=== PATIENT | female | born 1975 | race Caucasian/White ===

== ENCOUNTER 2022-05-27 20:03 | Emergency (ER) | payer BC, SELFPAY ==
[2022-05-27] VITALS (17 sets, daily range): BP systolic 86–114; BP diastolic 51–75; PULSE 55–85; RESP 12–20; TEMP 36.3; O2SAT 97–100
--- NOTE | 2022-05-27 20:38 | ED.GENADUL_ITS ---
Discharge Plan Disposition Patient Disposition: Home Discharge Details Clinical Impression: Headache [facility]: Maria Del Carmen Palacio Home Meds and New Rx's Prescriptions: New prochlorperazine maleate [Compazine] 10 mg tablet 10 mg PO Q6H PRNQty: 10 0RF Discharge Instructions Instructions: General Headache (ED) Additional Instructions: Take Compazine as needed for headache Take ibuprofen and Tylenol as needed for discomfort Please follow-up to establish primary care, placed on a referral list Return earlier should you have new or worsening complaints Discharge Data Discharge Date/Time-TO BE ENTERED AT DEPARTURE: 05/27/22 22:44 Medical Decision Making Patient presents with headache consistent with patient's prior migraine headaches I will defer on imaging and labs secondary to recurrent presentation Afebrile and nontoxic Nonfocal neurological exam Migraine cocktail consisting of Benadryl, Compazine, oxygen, and fluids with Tylenol ordered with good effect patient Patient reporting marked improvement in symptoms Afebrile and nontoxic on reassessment, request discharge home, headache has completely resolved Medical Records Medical records reviewed: Yes I reviewed the patient's medical records. Lab Data Lab results reviewed: Yes I reviewed the patient's lab results. HPI General Date/Time Provider Initiated Documentation: 05/27/22 20:18 . HPI Narrative: This 46-year-old female presents with report of headache which she describes as a migraine which started approximately 4 hours prior to arrival. She typically takes Nurtec, however this was not effective for this episode. She states that this is not an atypical migraine for her. She denies any fever or chills, neck pain, change in presentation. She denies any head trauma or chance of . She denies any risk of carbon monoxide exposure. She reports photophobia and phonophobia. Related Data Home Medications Medication Instructions Recorded Confirmed prochlorperazine maleate 10 mg 10 mg PO Q6H PRN #10 tabs 05/27/22 tablet (Compazine) Previous Rx's Medication Instructions Recorded prochlorperazine maleate 10 mg 10 mg PO Q6H PRN #10 tabs 05/27/22 tablet (Compazine) General Stated Complaint: Headache DANIEL: 4 PFSH All Active Problems (Updated 05/27/22 @ 21:34 by MENG Andrade) Headache (Acute) Social History Smoking/Tobacco Use Status: Never Smoking risk assessment performed?: Yes Substance use type: does not use Do you feel safe at home: Yes Exam Const General: cooperative and comfortable Orientation: alert and oriented x3 HENMT Head: normal to inspection Mouth: oral mucosae normal Eyes General: appearance normal, both eyes and all related structures Neck Other: no midline tenderness Resp Effort & Inspection: normal respiratory effort Auscultation: clear to auscultation bilaterally Cardio Rate: regular rate Rhythm: regular rhythm GI Inspection: normal to inspection Skin General skin exam: no rashes or lesions noted Neuro General: patient alert and patient oriented x3 Cognition: normal cognition Speech: speech normal Sensory Exam: no sensory deficits noted Course Vital Signs Vital signs: Vital Signs Temperature 36.3 C L 05/27/22 20:11 Pulse 73 05/27/22 20:11 Respiratory Rate 14 05/27/22 20:11 Blood Pressure 114/75 05/27/22 20:11 Pulse Oximetry 97 05/27/22 20:11 Temperature 36.3 C L 05/27/22 20:11 Temperature Source Temporal Artery Scan 05/27/22 20:11 Pulse 73 05/27/22 20:11 Respiratory Rate 14 05/27/22 20:11 Respiratory Effort Normal 05/27/22 20:17 Blood Pressure 114/75 05/27/22 20:11 Pulse Oximetry 97 05/27/22 20:11 Oxygen Delivery Method Room Air 05/27/22 20:11 Oxygen Flow Rate 0 05/27/22 20:11
[2022-05-27] MEDS: ACETAMINOPHEN 1,000 MG/100 ML BTL 400 MG IVPB (20:40)
[2022-05-27] MEDS: Dexamethasone 10 MG/ML VIAL IVP (20:48)
[2022-05-27] MEDS: Prochlorperazine 10 MG/2 ML VIAL IVP (20:49)
[2022-05-27] MEDS: diphenhydrAMINE 50 MG/ML VIAL IVP (20:49)
[2022-05-27] MEDS: Lactated Ringers 1,000 ML 1000 ML IV (21:00)
[2022-05-27] MEDS: Prochlorperazine 10 MG TAB PO (21:55)
--- NOTE | 2022-05-28 13:53 | PDOC.ERCMACT ---
- If Service Date Differs Date of service: 05/28/22 Time of Service: 13:53 Care Management Activity Note Pradeep is seen in the ED for a migraine. At the request of ED provider, JEROME coordinates a referral to Radha Fernandez MD, of [facility], t-doc, to assist Pradeep in obtaining a follow up appointment and in establishing care with a PCP. She has [facility] [place] for insurance.
== END 2022-05-27 22:44 | disposition home or self-care (01) ==
PROVIDERS: Emergency Provider Physician Assistant
DX: G43.909 Migraine, unspecified, not intractable, without status migrainosus (principal)
CPT/HCPCS: 36415; 96361; 96374; 96375; 99284; J0131; J0780; J1100; J1200

== ENCOUNTER 2022-12-03 10:26 | Outpatient (CLI) | payer BC, SELFPAY ==
[2022-12-03 09:54] LABS: Abs Immature Grans 0.01 10^3/uL (0.0-0.06); Absolute Basophil Count 0.05 10^3/uL (0.0-0.2); Absolute Eosinophil Count 0.18 10^3/uL (0.0-0.7); Absolute Monocyte Count 0.46 10^3/uL (0.1-0.8); Absolute Neutrophil Count 4.93 10^3/uL (1.2-6.7); Basophils % 0.7; Eosinophils % 2.5; HCT 42.4 % (36.0-46.0); HGB 14.7 g/dL (11.2-15.7); Immature Grans % 0.1; Lymphocytes % 22.1; MCH 29.9 pg (27.0-33.0); MCHC 34.7 % (32.0-36.0); MCV 86 fL (80-95); MPV 10.2 fL (8.0-11.0); Monocytes % 6.4; Neutrophils % 68.2; Platelet Count 257 10^3/uL (130-400); RBC 4.91 10^6/uL (3.93-5.22); RDW 12.8 % (11.7-14.6); RDW-SD 40.1 fL; WBC 7.23 10^3/uL (4.4-10.8)
[2022-12-03 10:31] LABS: ALT 39 U/L (14-59); AST 23 U/L (15-37); Albumin 4.2 g/dL (3.4-5.0); Alkaline Phosphatase 78 U/L (46-116); Anion Gap 10.4 mmol/L (3-11); BUN 12 mg/dL (7-18); Bilirubin, Direct 0.2 mg/dL (0.0-0.2); Bilirubin, Total 0.8 mg/dL (0.2-1.0); CO2 23.6 mmol/L (21.0-32.0); CREATININE 0.5 mg/dL (0.55-1.02); Calcium 9.4 mg/dL (8.5-10.1); Chloride 103 mmol/L (98-107); Glucose 104 mg/dL (74-106); Potassium 3.8 mmol/L (3.5-5.1); Sodium 137 mmol/L (136-145); TSH (W/Ref FT4) 1.06 uIU/mL (0.36-3.74); Total Protein 7.8 g/dL (6.4-8.2)
[2022-12-03 10:55] LABS: Vitamin D 25 Total 26.4 ng/mL (30-100)
[2022-12-03 11:08] LABS: Vitamin B12 684 pg/mL (193-986)
== END 2022-12-03 10:27 | disposition home or self-care (01) ==
LOC: LBO 10:26
PROVIDERS: Visit Provider Psychiatry & Neurology Neurology
DX: E53.8 Deficiency of other specified B group vitamins (principal); Z00.00 Encounter for general adult medical examination without abnormal findings; E55.9 Vitamin D deficiency, unspecified; H46.8 Other optic neuritis; Z13.29 Encounter for screening for other suspected endocrine disorder
CPT/HCPCS: 36415; 80053; 80076; 82306; 82607; 84443; 85025

== ENCOUNTER 2023-01-02 02:02 | Outpatient (CLI) | payer BC, SELFPAY ==
[2023-01-02 15:53] LABS: Abs Immature Grans 0.02 10^3/uL (0.0-0.06); Absolute Basophil Count 0.04 10^3/uL (0.0-0.2); Absolute Eosinophil Count 0.05 10^3/uL (0.0-0.7); Absolute Lymphocyte Count 1.62 10^3/uL (1.2-3.4); Absolute Monocyte Count 0.53 10^3/uL (0.1-0.8); Absolute Neutrophil Count 4.55 10^3/uL (1.2-6.7); Basophils % 0.6; Eosinophils % 0.7; HCT 40.2 % (36.0-46.0); HGB 13.9 g/dL (11.2-15.7); Immature Grans % 0.3; Lymphocytes % 23.8; MCH 29.8 pg (27.0-33.0); MCHC 34.6 % (32.0-36.0); MCV 86 fL (80-95); MPV 10.4 fL (8.0-11.0); Monocytes % 7.8; Neutrophils % 66.8; Platelet Count 248 10^3/uL (130-400); RBC 4.66 10^6/uL (3.93-5.22); RDW-SD 40.6 fL; WBC 6.81 10^3/uL (4.4-10.8)
[2023-01-02 17:03] LABS: ALT 29 U/L (14-59); AST 16 U/L (15-37); Albumin 4.3 g/dL (3.4-5.0); Alkaline Phosphatase 57 U/L (46-116); Bilirubin, Direct 0.2 mg/dL (0.0-0.2); Bilirubin, Total 0.6 mg/dL (0.2-1.0); Total Protein 7.1 g/dL (6.4-8.2)
== END 2023-01-02 02:03 | disposition home or self-care (01) ==
PROVIDERS: Visit Provider Psychiatry & Neurology Neurology
DX: H46.8 Other optic neuritis (principal)
CPT/HCPCS: 36415; 80076; 85025

== ENCOUNTER 2023-02-17 01:17 | Outpatient (CLI) | payer BC, SELFPAY ==
[2023-02-17 14:04] LABS: Abs Immature Grans 0.03 10^3/uL (0.0-0.06); Absolute Basophil Count 0.04 10^3/uL (0.0-0.2); Absolute Eosinophil Count 0.03 10^3/uL (0.0-0.7); Absolute Lymphocyte Count 1.49 10^3/uL (1.2-3.4); Absolute Monocyte Count 0.42 10^3/uL (0.1-0.8); Absolute Neutrophil Count 4.95 10^3/uL (1.2-6.7); Basophils % 0.6; Eosinophils % 0.4; HCT 41.3 % (36.0-46.0); HGB 14.1 g/dL (11.2-15.7); Immature Grans % 0.4; Lymphocytes % 21.4; MCH 29.3 pg (27.0-33.0); MCHC 34.1 % (32.0-36.0); MCV 86 fL (80-95); MPV 9.9 fL (8.0-11.0); Neutrophils % 71.2; Platelet Count 233 10^3/uL (130-400); RBC 4.81 10^6/uL (3.93-5.22); RDW 12.5 % (11.7-14.6); RDW-SD 38.9 fL; WBC 6.96 10^3/uL (4.4-10.8)
[2023-02-17 14:37] LABS: ALT 34 U/L (14-59); AST 23 U/L (15-37); Albumin 4.5 g/dL (3.4-5.0); Alkaline Phosphatase 61 U/L (46-116); Bilirubin, Direct 0.2 mg/dL (0.0-0.2); Bilirubin, Total 0.8 mg/dL (0.2-1.0); Total Protein 7.3 g/dL (6.4-8.2)
== END 2023-02-17 01:18 | disposition home or self-care (01) ==
LOC: LBO 01:17
PROVIDERS: Visit Provider Psychiatry & Neurology Neurology
DX: H46.8 Other optic neuritis (principal)
CPT/HCPCS: 80076; 85025

== ENCOUNTER 2023-03-20 03:11 | Outpatient (CLI) | payer BC, SELFPAY ==
[2023-03-20 08:08] LABS: Abs Immature Grans 0.01 10^3/uL (0.0-0.06); Absolute Basophil Count 0.03 10^3/uL (0.0-0.2); Absolute Eosinophil Count 0.06 10^3/uL (0.0-0.7); Absolute Lymphocyte Count 0.92 10^3/uL (1.2-3.4); Absolute Monocyte Count 0.34 10^3/uL (0.1-0.8); Absolute Neutrophil Count 2.44 10^3/uL (1.2-6.7); Basophils % 0.8; Eosinophils % 1.6; HCT 41.3 % (36.0-46.0); HGB 13.5 g/dL (11.2-15.7); Immature Grans % 0.3; Lymphocytes % 24.2; MCH 29.2 pg (27.0-33.0); MCHC 32.7 % (32.0-36.0); MCV 89 fL (80-95); MPV 9.5 fL (8.0-11.0); Monocytes % 8.9; Neutrophils % 64.2; Platelet Count 198 10^3/uL (130-400); RBC 4.63 10^6/uL (3.93-5.22); RDW 13.3 % (11.7-14.6); RDW-SD 43.7 fL
[2023-03-20 08:39] LABS: ALT 37 U/L (14-59); AST 32 U/L (15-37); Alkaline Phosphatase 58 U/L (46-116); Bilirubin, Direct 0.3 mg/dL (0.0-0.2); Bilirubin, Total 1.2 mg/dL (0.2-1.0); Total Protein 7.1 g/dL (6.4-8.2)
== END 2023-03-20 03:12 | disposition home or self-care (01) ==
PROVIDERS: Visit Provider Psychiatry & Neurology Neurology
DX: H46.8 Other optic neuritis (principal)
CPT/HCPCS: 36415; 80076; 85025

== ENCOUNTER 2023-04-20 05:14 | Outpatient (CLI) | payer BC, SELFPAY ==
[2023-04-20 16:45] LABS: Abs Immature Grans 0.02 10^3/uL (0.0-0.06); Absolute Basophil Count 0.04 10^3/uL (0.0-0.2); Absolute Eosinophil Count 0.01 10^3/uL (0.0-0.7); Absolute Lymphocyte Count 1.07 10^3/uL (1.2-3.4); Absolute Monocyte Count 0.61 10^3/uL (0.1-0.8); Absolute Neutrophil Count 5.83 10^3/uL (1.2-6.7); Basophils % 0.5; Eosinophils % 0.1; HGB 14.3 g/dL (11.2-15.7); Immature Grans % 0.3; Lymphocytes % 14.1; MCH 29.9 pg (27.0-33.0); MCV 88 fL (80-95); MPV 9.9 fL (8.0-11.0); Platelet Count 272 10^3/uL (130-400); RBC 4.79 10^6/uL (3.93-5.22); RDW 13.2 % (11.7-14.6); RDW-SD 42.5 fL; WBC 7.58 10^3/uL (4.4-10.8)
[2023-04-20 17:50] LABS: ALT 32 U/L (14-59); AST 25 U/L (15-37); Albumin 4.7 g/dL (3.4-5.0); Alkaline Phosphatase 56 U/L (46-116); Bilirubin, Direct 0.3 mg/dL (0.0-0.2); Bilirubin, Total 1.2 mg/dL (0.2-1.0); Total Protein 7.6 g/dL (6.4-8.2)
== END 2023-04-20 05:15 | disposition home or self-care (01) ==
PROVIDERS: Visit Provider Psychiatry & Neurology Neurology
DX: H46.8 Other optic neuritis (principal)
CPT/HCPCS: 36415; 80076; 85025

== ENCOUNTER → 2023-04-21 01:22 | Outpatient (CLI) | payer BC, SELFPAY ==
--- NOTE | 2023-04-21 | DI.MAMMO_ITS ---
Exam(s) MAMMO SCREENING EXAM: MAMMO SCREENING CLINICAL HISTORY: SCREENING FOR BREAST CANCER Z12.31. TECHNIQUE: Bilateral full field digital CC and MLO mammographic images were obtained with 3D tomosyn thesis and utilizing computer aided detection (CAD). COMPARISON: Prior outside mammograms dating back to 2016 were reviewed, the most recent being 2020. FINDINGS: Fibroglandular tissue pattern is again noted be moderately dense, this somewhat decreasing the sensit ivity of the mammogram for finding hidden underlying lesions. Small benign-appearing nodular density inferomedially in the left breast is unchanged from prior mamm ograms. There are no new spiculated masses nor malignant appearing microcalcification groups. There is no significant architectural distortion nor skin thickening-retraction. IMPRESSION: Dense bilateral fibroglandular tissue. No obvious radiographic evidence of malignancy nor significan t change compared to prior outside mammograms dating back to 2015. BI-RADS Category 2 - Benign Findings Breast Density - Category C - Heterogeneously dense Breast density Category C or D implies that the patient has dense breast tissue. Dense breast tissue can make it harder to find cancer on a mammogram. Dense breast tissue is also associated with an incr eased risk of breast cancer. This information about the result of the mammogram report was provided to the patient to raise their awareness. Use this report when you speak with the patient about their risks for breast cancer, which includes their family history. At that time, you may recommend additional screening tests (Ultrasoun d or MRI) as these tests may add significant information. A negative radiographic report should not delay biopsy if a dominant or clinically suspicious mass is present. Up to ten percent of cancers are not identified on mammography. A negative report may reinforce clinical impression. Adenosis and dense breasts may obscure an underlying neoplasm. False positive reports average 6 to 10%. Patient will receive a letter notifying them of these results.
== END ==
PROVIDERS: Visit Provider Family Medicine
DX: Z12.31 Encounter for screening mammogram for malignant neoplasm of breast (principal); R92.323 Mammographic fibroglandular density, bilateral breasts
CPT/HCPCS: 77063; 77067

== ENCOUNTER 2023-05-22 02:54 | Outpatient (CLI) | payer BC, SELFPAY ==
[2023-05-22 09:17] LABS: Abs Immature Grans 0.01 10^3/uL (0.0-0.06); Absolute Basophil Count 0.03 10^3/uL (0.0-0.2); Absolute Eosinophil Count 0.05 10^3/uL (0.0-0.7); Absolute Lymphocyte Count 1.15 10^3/uL (1.2-3.4); Absolute Monocyte Count 0.42 10^3/uL (0.1-0.8); Absolute Neutrophil Count 2.88 10^3/uL (1.2-6.7); Basophils % 0.7; Eosinophils % 1.1; HCT 42.5 % (36.0-46.0); HGB 14.4 g/dL (11.2-15.7); Immature Grans % 0.2; Lymphocytes % 25.3; MCH 29.4 pg (27.0-33.0); MCHC 33.9 % (32.0-36.0); MCV 87 fL (80-95); MPV 9.6 fL (8.0-11.0); Monocytes % 9.3; Neutrophils % 63.4; Platelet Count 238 10^3/uL (130-400); RBC 4.89 10^6/uL (3.93-5.22); RDW 13.1 % (11.7-14.6); RDW-SD 41.5 fL; WBC 4.54 10^3/uL (4.4-10.8)
[2023-05-22 09:37] LABS: ALT 19 U/L (14-59); AST 23 U/L (15-37); Albumin 4.4 g/dL (3.4-5.0); Alkaline Phosphatase 51 U/L (46-116); Bilirubin, Direct 0.3 mg/dL (0.0-0.2); Bilirubin, Total 1.1 mg/dL (0.2-1.0); Total Protein 7.8 g/dL (6.4-8.2)
== END 2023-05-22 02:55 | disposition home or self-care (01) ==
PROVIDERS: Visit Provider Psychiatry & Neurology Neurology
DX: H46.8 Other optic neuritis (principal)
CPT/HCPCS: 36415; 80076; 85025

== ENCOUNTER 2023-06-22 03:14 | Outpatient (CLI) | payer BC, SELFPAY ==
[2023-06-22 16:40] LABS: Abs Immature Grans 0.01 10^3/uL (0.0-0.06); Absolute Basophil Count 0.03 10^3/uL (0.0-0.2); Absolute Eosinophil Count 0.02 10^3/uL (0.0-0.7); Absolute Monocyte Count 0.43 10^3/uL (0.1-0.8); Absolute Neutrophil Count 4.13 10^3/uL (1.2-6.7); Basophils % 0.5; Eosinophils % 0.3; HCT 40.3 % (36.0-46.0); HGB 14.1 g/dL (11.2-15.7); Immature Grans % 0.2; MCH 30.8 pg (27.0-33.0); MCV 88 fL (80-95); MPV 10.2 fL (8.0-11.0); Monocytes % 7.3; Neutrophils % 69.7; Platelet Count 240 10^3/uL (130-400); RBC 4.58 10^6/uL (3.93-5.22); RDW 13.4 % (11.7-14.6); RDW-SD 42.9 fL; WBC 5.92 10^3/uL (4.4-10.8)
[2023-06-22 17:32] LABS: ALT 19 U/L (14-59); AST 21 U/L (15-37); Albumin 4.5 g/dL (3.4-5.0); Alkaline Phosphatase 54 U/L (46-116); Bilirubin, Direct 0.2 mg/dL (0.0-0.2); Total Protein 7.7 g/dL (6.4-8.2)
== END 2023-06-22 03:15 | disposition home or self-care (01) ==
PROVIDERS: Visit Provider Psychiatry & Neurology Neurology
DX: H46.8 Other optic neuritis (principal)
CPT/HCPCS: 36415; 80076; 85025

== ENCOUNTER 2023-07-24 01:35 | Outpatient (CLI) | payer BC, SELFPAY ==
[2023-07-24 16:18] LABS: Abs Immature Grans 0.02 10^3/uL (0.0-0.06); Absolute Basophil Count 0.04 10^3/uL (0.0-0.2); Absolute Eosinophil Count 0.04 10^3/uL (0.0-0.7); Absolute Lymphocyte Count 1.29 10^3/uL (1.2-3.4); Absolute Monocyte Count 0.58 10^3/uL (0.1-0.8); Absolute Neutrophil Count 3.85 10^3/uL (1.2-6.7); Basophils % 0.7; Eosinophils % 0.7; HCT 41.1 % (36.0-46.0); HGB 13.9 g/dL (11.2-15.7); Immature Grans % 0.3; Lymphocytes % 22.2; MCH 30.7 pg (27.0-33.0); MCHC 33.8 % (32.0-36.0); MCV 91 fL (80-95); MPV 9.8 fL (8.0-11.0); Neutrophils % 66.1; Platelet Count 242 10^3/uL (130-400); RBC 4.53 10^6/uL (3.93-5.22); RDW 13.5 % (11.7-14.6); RDW-SD 45.1 fL; WBC 5.82 10^3/uL (4.4-10.8)
[2023-07-24 17:01] LABS: ALT 22 U/L (14-59); AST 18 U/L (15-37); Albumin 4.5 g/dL (3.4-5.0); Alkaline Phosphatase 57 U/L (46-116); Bilirubin, Direct 0.3 mg/dL (0.0-0.2); Bilirubin, Total 1.1 mg/dL (0.2-1.0); Total Protein 7.3 g/dL (6.4-8.2)
== END 2023-07-24 01:36 | disposition home or self-care (01) ==
PROVIDERS: Visit Provider Psychiatry & Neurology Neurology
DX: H46.8 Other optic neuritis (principal)
CPT/HCPCS: 36415; 80076; 85025

== ENCOUNTER 2023-09-22 05:19 | Outpatient (CLI) | payer BC, SELFPAY ==
[2023-09-22 16:24] LABS: Abs Immature Grans 0.02 10^3/uL (0.0-0.06); Absolute Basophil Count 0.06 10^3/uL (0.0-0.2); Absolute Eosinophil Count 0.03 10^3/uL (0.0-0.7); Absolute Lymphocyte Count 1.22 10^3/uL (1.2-3.4); Absolute Neutrophil Count 3.87 10^3/uL (1.2-6.7); Basophils % 1.1 %; Eosinophils % 0.5 %; HGB 15.1 g/dL (11.2-15.7); Immature Grans % 0.4 %; Lymphocytes % 21.8 %; MCH 31.3 pg (27.0-33.0); MCHC 35.1 % (32.0-36.0); MCV 89 fL (80-95); MPV 10.1 fL (8.0-11.0); Monocytes % 7.1 %; Neutrophils % 69.1 %; Platelet Count 278 10^3/uL (130-400); RBC 4.83 10^6/uL (3.93-5.22); RDW 13.3 % (11.7-14.6); RDW-SD 43.7 fL
[2023-09-22 17:31] LABS: ALT 24 U/L (14-59); AST 20 U/L (15-37); Albumin 4.9 g/dL (3.4-5.0); Alkaline Phosphatase 65 U/L (46-116); Bilirubin, Direct 0.2 mg/dL (0.0-0.2); Bilirubin, Total 1.1 mg/dL (0.2-1.0); Total Protein 7.6 g/dL (6.4-8.2)
== END 2023-09-22 05:20 | disposition home or self-care (01) ==
PROVIDERS: Visit Provider Psychiatry & Neurology Neurology
DX: H46.8 Other optic neuritis (principal)
CPT/HCPCS: 36415; 80076; 85025

== ENCOUNTER 2023-12-22 02:37 | Outpatient (CLI) | payer BC, SELFPAY ==
[2023-12-22 12:45] LABS: Abs Immature Grans 0.02 10^3/uL (0.0-0.06); Absolute Basophil Count 0.05 10^3/uL (0.0-0.2); Absolute Eosinophil Count 0.06 10^3/uL (0.0-0.7); Absolute Lymphocyte Count 1.24 10^3/uL (1.2-3.4); Absolute Monocyte Count 0.37 10^3/uL (0.1-0.8); Absolute Neutrophil Count 3.53 10^3/uL (1.2-6.7); Basophils % 0.9 %; Eosinophils % 1.1 %; HCT 43.4 % (36.0-46.0); HGB 14.4 g/dL (11.2-15.7); Immature Grans % 0.4 %; Lymphocytes % 23.5 %; MCH 30.3 pg (27.0-33.0); MCHC 33.2 % (32.0-36.0); MCV 91 fL (80-95); MPV 9.9 fL (8.0-11.0); Neutrophils % 67.1 %; Platelet Count 255 10^3/uL (130-400); RBC 4.76 10^6/uL (3.93-5.22); RDW 12.8 % (11.7-14.6); RDW-SD 42.5 fL; WBC 5.27 10^3/uL (4.4-10.8)
[2023-12-22 13:54] LABS: ALT 23 U/L (14-59); AST 26 U/L (15-37); Albumin 4.8 g/dL (3.4-5.0); Alkaline Phosphatase 59 U/L (46-116); Bilirubin, Direct 0.2 mg/dL (0.0-0.2); Bilirubin, Total 0.79 mg/dL (0.2-1.0); Total Protein 8.1 g/dL (6.4-8.2)
== END 2023-12-22 02:38 | disposition home or self-care (01) ==
PROVIDERS: Visit Provider Psychiatry & Neurology Neurology
DX: H46.8 Other optic neuritis (principal)
CPT/HCPCS: 36415; 80076; 85025

== ENCOUNTER 2023-12-24 21:32 | Outpatient (REF) | payer BC, SELFPAY ==
[2023-12-24 21:54] LABS: Lipase 30 U/L (16-77)
[2023-12-24 21:55] LABS: C-Reactive Protein < 0.50 mg/dL (<or=0.5)
[2023-12-25 19:34] LABS: FSH 147.5 mIU/mL (See Note)
== END 2023-12-24 21:33 | disposition home or self-care (01) ==
LOC: NCHCN 21:32
PROVIDERS: Visit Provider Family Medicine
DX: R10.9 Unspecified abdominal pain (principal); Z90.711 Acquired absence of uterus with remaining cervical stump
CPT/HCPCS: 83690; 83001; 86140

== ENCOUNTER 2024-01-25 06:55 | Day surgery (SDC) | payer BC, SELFPAY ==
--- NOTE | 2024-01-24 10:23 | W.PM.DSUDISC ---
Date of service: 01/25/24 Time of Service: 08:43 Discharge Plan Disposition Patient Disposition: Home Condition: Good Discharge Details Reason For Visit: Screening colonoscopy Attending Provider: David Blackman Primary Care Provider: Unknown,Unknown Home Meds and New Rx's Prescriptions: Continued azathioprine 100 mg tablet 100 mg PO DAILY methylphenidate HCl [Concerta] 54 mg tablet extended release 24hr 54 mg PO DAILY epinephrine 0.3 mg/0.3 mL auto-injector 0.3 mg IM ONCE Rx Instructions: as a single dose; may repeat once Nurtec ODT 75 mg tablet,disintegrating 75 mg PO ONCE PRN Rx Instructions: as a single dose Discontinued bisacodyl [Dulcolax (bisacodyl)] 5 mg tablet,delayed release (DR/EC) 5 mg PO ONCE Qty: 4 0RF Rx Instructions: Take per colonoscopy instructions provided by ordering providers office polyethylene glycol 3350 17 gram/dose powder 17 g PO ONCE Qty: 238 0RF Rx Instructions: Take per colonoscopy instructions provided by ordering providers office Discharge Instructions Additional Instructions: Pradeep, we were able to complete your colonoscopy today without any difficulty. Your prep was excellent and I could see everything fine. Everything was totally normal. With a negative screening colonoscopy today, you will be good for 10 years. If there are any significant changes in the interim, I would suggest you follow-up with your primary care doctor to reassess. If you need anything or have any questions at all, please do not hesitate to ask. 1. If tolerated, consume a soft, low fiber diet for 1-2 days. 2[address] Do not drive, drink alcohol, operate machinery, make critical decisions, or do activities that require coordination or balance for 24 hours. 3. Because air was put into your colon during the procedure, expelling air from your rectum (passing gas or farting) is normal. 4. You may not have a bowel movement for 1-3 days because of the colonoscopy prep. This is normal. 5. Go directly to the emergency room if you notice any of the following: Develop chills (warm to touch), or if you have a thermometer and your temperature is above 101 Difficulty breathing or difficultly swallowing Persistent vomiting Severe abdominal pain, other than gas cramps Severe chest pain Black, tarry stools Any bleeding ? exceeding one tablespoon 6. Call your physician if the site where your intravenous was started becomes red, swollen, painful, and warm to touch. 7. Your physician has reviewed your pre-procedure medications. Please continue to take those medications as previously ordered. You will be given specific information/education regarding any changes to your medications before leaving. Activity:: Activity as Tolerated Diet:: As Tolerated Discharge Orders Discharge Orders: Discharge Order (Routine); Ordered 01/24/24 Ordered By: David Blackman DS: Diagnosis Discharge Diagnosis (1) Encounter for screening colonoscopy: Status: Acute Asessment and Plan: Negative screening colonoscopy; follow-up in 10 years
--- NOTE | 2024-01-24 10:24 | W.COLOREPORT ---
Date of service: 01/25/24 Time of Service: 08:44 Colonoscopy Report Date of procedure: 01/25/24 Pre-op diagnosis general: Screening colonoscopy Post-op diagnosis procedure note: other (Negative screening colonoscopy) Procedure: Colonoscopy Surgeon: David Blackman Anesthesia Type: General:No Airway Estimated blood loss (mL): 0 Pathology: none sent Complications: None Disposition: same day Indications: Pradeep is a 48-year-old woman who needs her for screening colonoscopy Prep: Miralax/Dulcolax Procedure Start Time: 08:17 Procedure End Time: 08:32 Retraction Time: 9 Findings: Negative screening colonoscopy Procedure Description: After the induction of anesthesia, and with the patient in left lateral decubitus position, I began by performing an external anorectal exam.? Perineum and skin were normal, as was the anal verge.? There are some perianal skin tags consistent with old hemorrhoids.? Next, I performed a digital rectal exam.? I did not appreciate any abnormal findings.? Next, I advanced a colonoscope into the rectal vault.? I performed retroflexion.? This appeared normal.? Using insufflation, I then advanced the colonoscope beyond the rectal folds and into the sigmoid colon before advancing towards the cecum.? The quality of the prep was excellent.? The scope was noted to be in the cecum by identification of the ileocecal valve and appendiceal orifice.? I then began withdrawing the colonoscope using repeated irrigation as necessary for full evaluation of the colonic mucosa. ?I did not see any signs of tumors, polyps, or any other abnormalities. Once the scope was withdrawn to the level of the rectum, great care was taken to examine portions of the rectal folds.? Finally, the scope was withdrawn and the patient was brought to the same-day surgery recovery unit as the anesthetic wore off. ?The findings and instructions were shared with the patient prior to discharge. [place] Bowel Prep [place] Bowel Prep Right Colon: 3 Left Colon: 3 Transverse Colon: 3 Total Score: 9
[2024-01-25 07:15] VITALS: BP 115/79; PULSE 115; RESP 16; TEMP 36.5; O2SAT 97
[2024-01-25] MEDS: Lactated Ringers 1,000 ML 80 ML IV (07:30)
--- NOTE | 2024-01-25 08:06 | W.ANESPRE ---
General Info Date of Service Date Performed: 01/25/24 Height: 5 ft 5 in Weight: 63.5 kg Body Mass Index (BMI): 23.3 Surgical Procedure: Operation Date: 01/25/24 08:20 Proposed Procedure Side Surgeon saeid Blackman MD Meds Allergies and Home Medications Allergies Allergy/AdvReac Type Severity Reaction Status Date / Time cefaclor (From Ceclor) Allergy Intermediate Hives Verified 01/25/24 07:34 bee venom protein (honey bee) Allergy Unknown Unknown Verified 01/25/24 07:34 gluten Allergy Diarrhea Verified 01/25/24 07:34 morphine AdvReac Intermediate vomiting Verified 01/25/24 07:34 Home Medication ?Medication ?Instructions ?Recorded epinephrine 0.3 mg/0.3 mL 0.3 mg IM ONCE 12/03/23 injection, auto-injector methylphenidate HCl 54 mg 54 mg PO DAILY 12/03/23 tablet,extended release 24 hr (Concerta) rimegepant 75 mg disintegrating 75 mg PO ONCE PRN 12/03/23 tablet (Nurtec ODT) azathioprine 100 mg tablet 100 mg PO DAILY 01/08/24 Current Visit Medications: Current Medications Generic Name Dose Route Start Last Admin Trade Name Freq PRN Reason Stop Dose Admin Hyoscyamine Sulfate 0.125 mg 01/25/24 06:00 Hyoscyamine 0.125 Mg Sl/Oral/Chew SL 02/24/24 05:59 DIRECTED PRN Ringer's Solution 1,000 mls @ 80 mls/hr 01/25/24 06:00 01/25/24 07:30 IV 02/21/24 23:59 80 mls/hr INFUSION SANTANA Administration IV Miscellaneous Supplies 1 each 01/25/24 06:00 Iv Access IV 02/21/24 23:59 DIRECTED SANTANA Ondansetron HCl 4 mg 01/25/24 06:00 Ondansetron 4 Mg/2 Ml Vial IVP 02/24/24 05:59 Q4H PRN PRN Nausea / Vomiting Sodium Chloride 0 ml 01/25/24 06:00 Normal Saline Flush 10 Ml Syr IV 02/21/24 23:59 PRN PRN Sodium Chloride 0 ml 01/25/24 06:00 Normal Saline 10 Ml Vial IJ 02/21/24 23:59 DIRECTED PRN Sterile Water 0 ml 01/25/24 06:00 Water,Injection,Sterile 10 Ml Vial IJ 02/21/24 23:59 DIRECTED PRN PFSH Active Problems Active Problems: Problem Status Onset Code Encounter for screening colonoscopy Acute Z12.11 Pain in throat Acute R07.0 Sinus tachycardia Acute R00.0 Optic neuritis Acute H46.9 Anxiety Chronic F41.9 Medical History Medical History ADHD (attention deficit hyperactivity disorder) Migraine Surgical History Surgical History History of tonsillectomy History of appendectomy History of hysterectomy Tobacco Smoking/Tobacco Use Status: Never Alcohol Alcohol Intake: never Substance Use Substance use type: does not use Vital Signs and Lab Results Vital Signs Most Recent Vital Signs in EMR: Most Recent Vital Signs Temp Pulse Resp BP Pulse Ox 36.5 C 115 H 16 115/79 97 01/25/24 07:15 01/25/24 07:15 01/25/24 07:15 01/25/24 07:15 01/25/24 07:15 Lab Results Blood Type / Crossmatch: No Data to Display Complete Blood Count: No Data to Display Complete Metabolic Panel: No Data to Display Liver Function Panel: No Data to Display Coagulation Panel: No Data to Display Cardiac Panel: No Data to Display Arterial Blood Gas: No Data to Display Venous Blood Gas: No Data to Display Pancreas Panel: No Data to Display Thyroid Panel: No Data to Display Infectious Disease: No Data to Display Blood Cultures: No Data to Display Toxicology Panel: No Data to Display Panel: No Data to Display Anesthesia Assessment and Plan Anesthesia History Personal History: No History of Anesthesia Complications Family History: No Family History of Anesthesia Complications Exercise Tolerance Exercise Tolerance: Metabolic Equivalents>4 Pertinent Negatives Pertinent Negatives: No Symptoms of GERD, No Major Cardiovascular Symptoms or Complaints, No Major Pulmonary Symptoms or Complaints and No History of CVA/TIA Cardiac & Pulmonary Exam Cardiac Exam: Normal S1/S2 Heart Sounds Pulmonary Exam: Clear Bilateral Breath Sounds Implantable Cardiac Device Does patient have a Pacemaker or an ICD?: No Airway Exam Known Difficult Airway: No Mallampati Class: 2 Mouth Opening: Normal (> 3cm) Thyromental Distance: Greater than 3 cm Neck Range of Motion: Full ROM Neck Circumference: Normal Teeth Condition: Normal Dentition ASA Classification ASA Score: ASA 2 Emergency Case?: No NPO Status NPO Status: NPO Clears >2 hours, Solids >8 hours Status Status: Negative HCG Anesthesia Plan Resuscitation Status: Full Code Anesthesia Technique: General Anesthesia Airway Planned: Natural Airway Monitors Used: Standard Monitors
[2024-01-25 08:07] VITALS: BMI 23.3
[2024-01-25 08:30] VITALS: BP 107/74; PULSE 82; RESP 16; TEMP 36.3; O2SAT 97
[2024-01-25 09:01] VITALS: BP 109/80; PULSE 65; RESP 16; TEMP 36.3; O2SAT 98
--- NOTE | 2024-01-25 09:13 | W.ANESPOSTOP ---
Postoperative Evaluation Date, Time and Location Date Performed: 01/25/24 Time Performed: 09:13 Patient Location: Day Surgery Unit Vital Signs Most Recent Imported Vital Signs: Most Recent Vital Signs Temp Pulse Resp BP Pulse Ox 36.3 C L 65 16 109/80 98 01/25/24 09:01 01/25/24 09:01 01/25/24 09:01 01/25/24 09:01 01/25/24 09:01 Pain Score Most Recent Pain Score: Most Recent Pain Score Pain Level 3 01/25/24 09:01 Assessment Mental Status: Awake (Alert & Oriented to Patient Baseline) Airway and Respiratory Function: Patent airway with normal (patient baseline) respiratory exam Cardiovascular Function: Hemodynamically Stable Hydration Status: Adequately Hydrated Nausea & Vomiting: No Nausea or Vomiting Pain: Pain is tolerable per patient Peripheral Nerve Block: Patient did not receive a nerve block
== END 2024-01-25 09:10 | disposition home or self-care (01) ==
LOC: SUR 06:56
PROVIDERS: Visit Provider Surgery
PROC: 0DJD8ZZ Inspection of Lower Intestinal Tract, Via Natural or Artificial Opening Endoscopic (ICD-10-PCS; CPT 45378; principal; 2024-01-25 08:15)
DX: Z12.11 Encounter for screening for malignant neoplasm of colon (principal)
CPT/HCPCS: 45378; J2704; J3010

== ENCOUNTER 2024-03-21 16:16 | Outpatient (REF) | payer BC, SELFPAY ==
[2024-03-21 15:53] LABS: Abs Immature Grans 0.01 10^3/uL (0.0-0.06); Absolute Basophil Count 0.04 10^3/uL (0.0-0.2); Absolute Eosinophil Count 0.07 10^3/uL (0.0-0.7); Absolute Lymphocyte Count 0.94 10^3/uL (1.2-3.4); Absolute Monocyte Count 0.39 10^3/uL (0.1-0.8); Absolute Neutrophil Count 2.42 10^3/uL (1.2-6.7); Eosinophils % 1.8 %; HCT 43.2 % (36.0-46.0); HGB 14.3 g/dL (11.2-15.7); Immature Grans % 0.3 %; Lymphocytes % 24.3 %; MCH 30.5 pg (27.0-33.0); MCHC 33.1 % (32.0-36.0); MCV 92 fL (80-95); MPV 10.9 fL (8.0-11.0); Monocytes % 10.1 %; Neutrophils % 62.5 %; Platelet Count 220 10^3/uL (130-400); RBC 4.69 10^6/uL (3.93-5.22); RDW 13.4 % (11.7-14.6); RDW-SD 45.1 fL; WBC 3.87 10^3/uL (4.4-10.8)
[2024-03-21 16:54] LABS: ALT 27 U/L (14-59); AST 19 U/L (15-37); Albumin 4.3 g/dL (3.4-5.0); Alkaline Phosphatase 72 U/L (46-116); Anion Gap 7.1 mmol/L (3-11); BUN 10 mg/dL (7-18); Bilirubin, Total 0.42 mg/dL (0.2-1.0); CO2 28.9 mmol/L (21.0-32.0); CREATININE 0.7 mg/dL (0.55-1.02); Calcium 9.2 mg/dL (8.5-10.1); Calculated LDL 81 mg/dL (<100); Chloride 106 mmol/L (98-107); Cholesterol 169 mg/dL (<200); Estimated GFR 107.95 (mL/min/1.73m2); Glucose 109 mg/dL (74-106); HDL Cholesterol 78 mg/dL (40-60); Potassium 4.5 mmol/L (3.5-5.1); Sodium 142 mmol/L (136-145); TSH (W/Ref FT4) 1.52 uIU/mL (0.36-3.74); Triglyceride 51 mg/dL (<150)
== END 2024-03-21 16:17 | disposition home or self-care (01) ==
LOC: NCHCN 16:16
PROVIDERS: Visit Provider Family Medicine
DX: R10.9 Unspecified abdominal pain (principal); Z90.711 Acquired absence of uterus with remaining cervical stump
CPT/HCPCS: 80053; 80061; 84443; 85025

== ENCOUNTER 2024-04-18 16:23 | Outpatient (REF) | payer SELFPAY ==
[2024-04-18 16:29] LABS: Abs Immature Grans 0.02 10^3/uL (0.0-0.06); Absolute Basophil Count 0.04 10^3/uL (0.0-0.2); Absolute Eosinophil Count 0.02 10^3/uL (0.0-0.7); Absolute Lymphocyte Count 0.99 10^3/uL (1.2-3.4); Absolute Monocyte Count 0.43 10^3/uL (0.1-0.8); Basophils % 0.9 %; Eosinophils % 0.4 %; HCT 44.5 % (36.0-46.0); Immature Grans % 0.4 %; Lymphocytes % 21.1 %; MCH 30.3 pg (27.0-33.0); MCHC 33.7 % (32.0-36.0); MCV 90 fL (80-95); MPV 10.8 fL (8.0-11.0); Monocytes % 9.1 %; Neutrophils % 68.1 %; Platelet Count 232 10^3/uL (130-400); RBC 4.95 10^6/uL (3.93-5.22); RDW 13.1 % (11.7-14.6); RDW-SD 42.5 fL
--- OUTSIDE RECORDS SUMMARY | 2024-04-18 16:35 | XMS_ITS | Encounter Summary ---
Author Organization [facility] Address [address] [place] [address] Care Team Providers Care Senior Client Advisor Name Role Phone Unavailable Primary Care Provider Unavailabl e Encounter Details Date Type Department Care Team (Late st Contact Info) Description 02/11/1999 21:30 EST Hospital Encounter [facility] - Other [address] [place] [address] Lizeth Garcia, ESTIMATOR PROJECT MANAGER [address] [place] [address] Unknown, Provider, MD Discharge Disposition: Auto Discharge Social History Tobacco Use Types Packs/Day Years Used Date Smoking Tobacco: Never Assessed Comments Unknown Sex and Gender Information Value Date Recorded Sex Assigned at Not on file Legal Sex Female 18:10 EST Gender Identity Not on file Sexual Orientation Not on file documented as of this encounter Discharge Disposition Disposition Code Departure Means Destination Auto Discharge documented in this encounter Plan of Treatment Not on file documented as of this encounter Visit Diagnoses Not on filedocumented in this encounter
--- OUTSIDE RECORDS SUMMARY | 2024-04-18 16:35 | XMS_ITS | Encounter Summary ---
Author Organization [facility] Address [facility] [place] [address] Care Team Providers Care Scrap Wheeler Name Role Phone Curtis Jiang MD Primary Care Provider [phone] Encounter Details Date Type Department Care Team (Late st Contact Info) Description 07/27/2023 External [place] [id number] Megan Kirk, RN Social History Tobacco Use Types Packs/Day Years Used Date Smoking Tobacco: Never Smokeless Tobacco: Never Alcohol Use Standard Drinks/Week Comments Not Currently 0 (1 standard drink = 0.6 oz pur e alcohol) occassionally Sex and Gender Information Value Date Recorded Sex Assigned at Not on file Gender Identity Not on file Sexual Orientation Not on file documented as of this encounter Plan of Treatment Upcoming Encounters Date Type Department Care Team (Late st Contact Info) Description 06/16/2024 8:40 AM EST Appointment Mammography/[place] [address] Radha Fernandez MD [address] [place] [id number] 08/10/2024 9:30 AM EDT Office [place] [address] Miguel Angel Blackman III, MD [facility] [place] [address] documented as of this encounter Procedures Procedure Name Priority Date/Time Associated Diagnosis Comments CBC (WITH DIFF) Routine 2023 4:08 PM EDT HEPATIC FUNCTION PANEL Routine 2023 4:08 PM EDT documented in this encounter Results * (ABNORMAL) Hepatic Function Panel (2023 4:08 PM EDT) Protein, Total 7.3 EXTER NAL FACILITY Albumin 4.5 EXTERNAL FACILITY Bilirubin, Total 1.1(H) [facility]T [facility] Bilirubin, Direct 0.3(H) EX TERNAL FACILITY Alkaline Phosphatase 57 [facility]ILITY Aspartate Aminotransferase 18 [facility] Alanine Aminotransferase 22 [facility] Blood 2023 4:08 PM EDT Miguel Angel Blackman III, MD CHEMISTRY ORDERAB LES Performing Organization Address City/[facility]/ZIP Co de Phone Number EXTERNAL FACILITY * CBC (with Diff) (2023 4:08 PM EDT) White Blood Cell 5.82 [facility]T [facility] Red Blood Cell 4.56 EXTER NAL FACILITY Hemoglobin 13.9 EXTERNAL FACILITY Hematocrit 41.1 EXTERNAL FACILITY Mean Cell Volume 91.0 [facility] Mean Cell Hemoglobin 30.7 EX[facility]NAL [facility]ACILITY Mean Cell Hemoglobin Concentration 33.8 EXTERNAL FACILITY RDW coefficient of variation 13.5 EX[facility]ILITY Platelet 242 [facility] Mean Platelet Volume 9.8 [facility]ACILITY Neutrophil % 66.1 EXTERNA L FACILITY Lymph % 22.2 EX[facility]NAL FACILITY Monocyte % 10.0 EX[facility]NAL FACILITY Eosinophil Manual 0.7 EX TERNAL FACILITY Basophil % 0.7 EX[facility] FACILITY Immature Gran % 0.3 EXTE [facility]AC[facility] Neutrophil Absolute (ANC) - Automated 3.85 EXTERNAL FACILITY Lymph Absolute Manual 1.29 [facility]ACILITY Monocyte Abs 0.58 EXTERNA L FACILITY Eos Absolute Manual 0.04 EX[facility]NAL FACILITY Baso Absolute Manual 0.04 EX[facility]NAL FACILITY Immature Gran Absolute 0.0 EX[facility]NAL FACILITY Blood 2023 4:08 PM EDT Miguel Angel Blackman III, MD HEMATOLOGY ORDERA BLES [facility] FACILITY documented in this encounter Visit Diagnoses Not on filedocumented in this encounter Care Teams Scrap Wheeler Relationship Specialty Start Date End Date Curtis Jiang MD [address] [place] [address] PCP - General Family Medicine 01/19/23 documented as of this encounter
--- OUTSIDE RECORDS SUMMARY | 2024-04-18 16:35 | XMS_ITS | Encounter Summary ---
Author Organization [facility] [place] [address] Care Team Providers Care Hand Spring Repairer Name Role Phone Curtis Jiang MD Primary Care Provider [phone] Encounter Details Date Type Department Care Team (Latest Contact Info) Description 09/23/2023 External [place] [phone] Bee Cruz, FOOD AIDE Chronic relapsing inflammatory optic neuropathy Social History Tobacco Use Types Packs/Day Years [...] 06/16/2024 8:40 AM EST Appointment Mammography/[place] [address] Radha Fernandez MD [address] [address] 08/10/2024 9:30 AM EDT [place] [address] Miguel Angel Blackman III, MD [facility] [place] [address] documented as of this encounter Procedures Procedure Name Priority Date/Time Associated Diagnosis Comments CBC (WITH DIFF) Routine 09/22/2023 4:00 PM EDT Chronic relapsing inflammatory optic neuropathy HEPATIC FUNCTION PANEL Routine 09/22/2023 4:00 PM EDT Chronic relapsing inflammatory optic neuropathy documented in this encounter Results * (ABNORMAL) Hepatic Function Panel (09/22/2023 4:00 PM EDT) Protein, Total 7.6 EXTER NAL FACILITY Albumin 4.9 EXTERNAL FACILITY Bilirubin, Total 1.1(H) EXT ERNAL [facility]ACILITY Bilirubin, Direct 0.2 EX TERNAL FACILITY Alkaline Phosphatase 65 EXTERNAL FACILITY Aspartate Aminotransferase 20 EXTERNAL FACILITY Alanine Aminotransferase 24 EXTERNAL FACILITY Blood 09/22/2023 4:00 PM EDT Miguel Angel Blackman III, MD CHEMISTRY ORDERAB LES Performing Organization Address [facility] Co de Phone Number EXTERNAL FACILITY * CBC (with Diff) (09/22/2023 4:00 PM EDT) White Blood Cell 5.60 EXT [facility]RNA[facility]ACILITY Red Blood Cell 4.83 EXTER NAL FACILITY Hemoglobin 15.1 EXTERNAL FACILITY Hematocrit 43.0 EXTERNAL FACILITY Mean Cell Volume 89.0 EXT ERNAL FACILITY Mean Cell Hemoglobin 31.3 EXTERNAL FACILITY Mean Cell Hemoglobin Concentration 35.1 EXTERNAL FACILITY RDW coefficient of variation 13.3 EXTERNAL FACILITY Platelet 278 EXTERNAL FACILITY Mean Platelet Volume 10.1 EXTERNAL FACILITY Neutrophil % 69.1 EXTERNA L FACILITY Lymph % 21.8 EXTERNAL FACILITY Monocyte % 7.1 EXTERNAL FACILITY Eosinophil Manual 0.5 EX TERNAL FACILITY Basophil % 1.1 EXTERNAL FACILITY Immature Gran % 0.4 EXTE RNAL FACILITY Neutrophil Absolute (ANC) - Automated 3.87 EXTERNAL FACILITY Lymph Absolute Manual 1.22 EXTERNAL FACILITY Monocyte Abs 0.40 EXTERNA L FACILITY Eos Absolute Manual 0.03 EXTERNAL FACILITY Baso Absolute Manual 0.06 EXTERNAL FACILITY Blood 09/22/2023 4:00 PM EDT Miguel Angel Blackman III, MD HEMATOLOGY ORDERA BLES EXTERNAL FACILITY documented in this encounter Visit Diagnoses Diagnosis Chronic relapsing inflammatory optic neuropathy documented in this encounter Care Teams Hand Spring Repairer Relationship Specialty Start Date End Date Curtis Jiang MD [address] [place] [address] PCP - General Family Medicine 01/19/23 documented as of this encounter
--- OUTSIDE RECORDS SUMMARY | 2024-04-18 16:35 | XMS_ITS | Encounter Summary ---
Author Organization [facility] Address [facility] [place] [address] Care Team Providers Care Boarding Mother Name Role Phone Curtis Jiang MD Primary Care Provider [phone] Encounter Details Date Type Department Care Team (Late st Contact Info) Description 07/10/2023 11:00 AM EDT Office Visit Dermatology at [facility] [address] [place] [phone] Raghav Liang MD [address] [place] [address] [address] [place] [address] Seborrheic keratoses; Multiple benign nevi of upper extremity, lower extremity, and trunk; Hair thinning; Hx of suspected AK (actinic keratosis) Social History Tobacco Use Types Packs/Day Years Used Date Smoking Tobacco: Never Smokeless Tobacco: Never Alcohol Use Standard Drinks/Week Comments Not Currently 0 (1 standard drink = 0.6 oz pur e alcohol) occassionally Sex and Gender Information Value Date Recorded Sex Assigned at Not on file Gender Identity Not on file Sexual Orientation Not on file documented as of this encounter Progress Notes * Raghav Liang MD - 07/10/2023 11:00 AM EDT Images from the original note were not included. DEPARTMENT OF DERMATOLOGY Medical Dermatology Clinic Provider: Raghav Liang MD Patient's preferred name Pradeep Preferred contact method for results []Phone [x]myD-H []Letter Detailed phone message OK? Y Are there any other people with whom we may discuss your care? 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 Patient is new and self- referred to the clinic for a full skin exam. Patient reports the following: - Spots on arms. Asymptomatic. - Spot on right forehead that her PCP treated with 5FU x 2 weeks. Good response. - Spot on right lateral eyebrow that can be sore at times Medications: Reviewed in eD-H Allergies: Reviewed in eD-H Skin Examination: Full skin examination: Patient asked to undress to their comfort level. Verbalized that the provider's preference is that patient remove all clothing and that the provider will not examine areas patient elects to keep covered. Examination of the scalp, hair, head, face, ears, neck, chest, axillae, abdomen, back, buttocks, and upper and lower extremities was normal with the exception of the findings below. Genitalia not examined. Assessment/Plan #. Seborrheic Keratoses - Scattered brown and flesh colored waxy stuck on plaques located on the head, trunk, and extremities; including right lateral eyebrow. - Reassured of benign nature #. Benign Nevi - Scattered medium-brown macules and papules on the trunk and extremities. - Reassured of benign appearance on exam today. #. 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 - Discussed treatment options including oral minoxidil. Side effects and benefits discussed. - Recommend checking with before starting Minoxidil. Instructed to contact clinic if wanting to stat Oral minoxidil. #. Immunosuppressant therapy - Recommend yearly FSE and consistent SPF usage #. Hx of suspected AK - right forehead s/p 5FU. Resolved. - Discussed etiology and diagnosis Other: Sun protection discussed (protective clothing and SPF30+ broad-spectrum sunscreen) RTC: 1 year for FSE []Note routed to office services coordinator [x]Recall placed in scheduling system []Appointment scheduled at checkout Scribe attestation: Xenia Carvajal [facility]ENTER[facility]únior has performed the documentation for this encounter in the presence of and acting as a scribe for Raghav Liang MD. I performed the above scribed service and agree with the accuracy of the documentation in this encounter. Reviewed and signed by: Raghav Liang MD Dermatology [facility] Staff aerial photogrammetrist: Cinthia Price MD Dermatology [facility] * Cinthia Price MD - 07/10/2023 11:00 AM EDT I was the supervising physician working with the Dermatology resident, Raghav Liang MD, in the care of this Dermatology patient in person. For the purposes of billing, the resident provided the care. I have reviewed the encounter note details and level of service. Cinthia Price MD Staff Medical Engineer Department of Dermatology [facility] documented in this encounter Plan of Treatment Upcoming Encounters Date Type Department Care Team (Late st Contact Info) Description 06/16/2024 8:40 AM EST Appointment Mammography/[place] [address] Radha Fernandez MD [address] [address] 08/10/2024 9:30 AM EDT [place] [address] Miguel Angel Blackman III, MD [facility] [place] [address] documented as of this encounter Visit Diagnoses Diagnosis Seborrheic keratoses Multiple benign nevi of upper extremity, lower extremity, and trunk Hair thinning Alopecia, unspecified Hx of suspected AK (actinic keratosis) Actinic keratosis documented in this encounter Care Teams Boarding Mother Relationship Specialty Start Date End Date Curtis Jiang MD [address] [place] [id number] PCP - General Family Medicine 01/19/23 documented as of this encounter
--- OUTSIDE RECORDS SUMMARY | 2024-04-18 16:35 | XMS_ITS | Encounter Summary ---
Author Organization [facility] Address [facility] [place] [address] Care Team Providers Care Senior Compliance Analyst Name Role Phone Curtis Jiang MD Primary Care Provider [phone] Reason for Visit * Reason Onset Date Comments Prior Authorization 10/23/2023 rimegepant ( Nurtec ODT) 75 mg disintegrating tablet Encounter Details Date Type Department Care Team (Late st Contact Info) Description 10/23/2023 Telephone Administration [facility] [place] [phone] Hannah Null MA Prior Authorization (rimegepant (Nurtec ODT) 75 mg disintegrating tablet ) Social History Tobacco Use Types Packs/Day Years Used Date Smoking Tobacco: Never Smokeless Tobacco: Never Alcohol Use Standard Drinks/Week Comments Not Currently 0 (1 standard drink = 0.6 oz pur e alcohol) occassionally Sex and Gender Information Value Date Recorded Sex Assigned at Not on file Gender Identity Not on file Sexual Orientation Not on file documented as of this encounter Miscellaneous Notes * Telephone Encounter - Hannah Null MA - 10/28/2023 7:22 AM EDTSummary: PA Approval rimegepant (Nurtec ODT) 75 mg disintegrating tablet Images from the original note were not included. Submitted Date: Submitted Date: 10/23/2023 Next Review Date: Next Review Date: 10/22/2024 PA Outcome: PA Approval Medication Prior Authorization Approval Approved: rimegepant (Nurtec ODT) 75 mg disintegrating tablet Start Date: 10/23/2023 End Date: 10/22/2024 Case/Reference #: [id number] Approval Letter will be scanned into media once received. * Telephone Encounter - Hannah Null MA - 10/23/2023 12:14 PM EDTSummary: PA Request rimegepant (Nurtec ODT) 75 mg disintegrating tablet PA Submitted Submitted Date: Date Submitted: 10/23/2023 Medication Prior Authorization Patient: Pradeep Brady Patient : 1975 Insurance Company: ([employer] Sent via: [employer] [place]: [id number] Physician: Miguel Angel Blackman III, MD Medication Requested: rimegepant (Nurtec ODT) 75 mg disintegrating tablet Frequency/Sig: Take 1 tablet by mouth as needed (migraine headache) for up to 96 doses. Disp: 8 tablet Refills: 11 Currently taking: YES If yes, how lon02/09/20 -PRESENT Diagnosis for this medication: Migraine without aura and without status migrainosus, not intractable [G43.009] Prior medications trialed in this patient: Medication: venlafaxine XR (Effexor-XR) 37.5 mg ER 24 hr capsule Approx Dates: current Outcome/Adverse Reactions: Inadequate response Additional Notes: Encounter Date: 08/03/2023 Miguel Angel Blackman III, MD [facility] Follow-up Visit Dear Curtis Jiang MD, I saw Pradeep Brady in clinic today in follow-up for chronic relapsing inflammatory optic neuropathy. Below is my progress note with impression and plan. Please do not hesitate to call with any questions. DISEASE SUMMARY: Principal neurologic diagnosis: CRION Onset: 2012 CSF: Normal cell count, protein, glucose, negative oligoclonal bands, negative CSF TONI Serum: NMO/MOG: Negative x2 Negative SHITAL, ANCA, ESR, CRP, and antiphospholipid antibodies Treatment History Previous disease therapies: Mycophenolate (start 10/2022-- GI side effects on 1000mg BID; tolerated 500mg BID Current disease therapies: Azathiprine 100mg daily (start 02/2023) Imaging History Most recent MRI brain: 08/03/2022 Most recent MRI cervical spine: None Most recent MRI thoracic spine: None Interval History: Pradeep was last seen via telemedicine in April 2023. At that time she reported 1 transient episode of pain behind both eyes with associated vision loss. Today, Pradeep reports no new or worsening vision changes. She does not report any new neurological symptoms. She is set to be seen by her local ophthalmogist and Dr. Chang in September 2023. She continues on azathioprine 100mg daily without adverse side effect. She also denies any new neurological symptoms. She notes continued mild fatigue, but this is better than when on CellCept. She has had some increase in migraine headaches recently - which she has experienced in the past around Spring. She is taking Nurtec about once per week (no additional headaches). She reports that her knee pain resolved after she stopped eating eggs that were recently labeled ashaving gluten (at school). She has been on gluten free/reduced diet for some time. Current Medications: reviewed and updated in EMR Physical Examination She was alert and oriented to person, place, and time with normal language, attention and concentration, recent and remote memory, praxis, and intellectual function. Mood was euthymic. Affect was congruent. Visual acuity was 20/20 OD, 20/20 OS with contracts Visual delgadillo: OD: restriction in inferior religion field OS: restriction in inferior religion field. Pupils were 4 mm and briskly reactive OU to 2 mm with a relative afferent pupillary defect on OS. Funduscopic examination was notable for optic disc pallor on L. Ocular ductions were full without nystagmus. Facial sensation was normal. Muscles of facial expression moved normally. Hearing was normal. There was no dysarthria. Standard gait was normal. REVIEW OF LABORATORY STUDIES: 2023 CBC diff and LFTs - only notable for mildly elevated bilirubin (1.1, direct 0.3) - stable Assessment: ICD-10-CM 1. 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 Migraine without aura and without status migrainosus, not intractable G43.009 rimegepant (NurtecODT) 75 mg disintegrating tablet Pradeep Brady is a 48 y.o. woman with probable chronic relapsing inflammatory optic neuropathy currently on azathioprine 100 mg daily. Visual findings on examination today are relatively stable. Migraine headaches continue to be well-controlled with migraine rescue treatment only, Nurtec. Monitoring Plan: Space out CBC with differential and LFTs to every 3 months (next in October 2023) Continue to follow-up with Dr. Chang, [facility] [place] Treatment Plan: Continue on azathioprine 100 mg daily Continue on Nurtec for migraine rescue Follow-Up: 6 months Thank you for allowing us to participate in [facility]. If you have questions or concerns please do not hesitate to call our clinic at [phone]. Miguel Angel Blackman III, MD [facility] Department of Neurology [facility] [address] P F 8:15 AM 08/04/2023 documented in this encounter Plan of Treatment Upcoming Encounters Date Type Department Care Team (Late st Contact Info) Description 06/16/2024 8:40 AM EST Appointment Mammography/[place] [address] Radha Fernandez MD [address] [place], [place] [address] 08/10/2024 9:30 AM EDT Office [place] [address] Miguel Angel Blackman III, MD [facility] [place] [address] documented as of this encounter Visit Diagnoses Not on filedocumented in this encounter Care Teams Senior Compliance Analyst Relationship Specialty Start Date End Date Curtis Jiang MD [address] [place] [address] PCP - General Family Medicine 01/19/23 documented as of this encounter
--- OUTSIDE RECORDS SUMMARY | 2024-04-18 16:35 | XMS_ITS | Encounter Summary ---
Author Organization [facility] Address [facility] [place] [address] Care Team Providers Care Belt Glass Sander Name Role Phone Curtis Jiang MD Primary Care Provider Encounter Details Date Type Department Care Team (Latest Contact Info) Description 07/10/2023 Travel Social History Tobacco Use Types Packs/Day Years [...] 06/16/2024 8:40 AM EST Appointment Mammography/[place] [phone] Radha Fernandez MD [address] [place], [place] [address] 08/10/2024 9:30 AM EDT [place] [address] Miguel Angel Blackman III, MD [facility] [place] [address] documented as of this encounter Visit Diagnoses Not on filedocumented in this encounter Care Teams Belt Glass Sander Relationship Specialty Start Date End Date Curtis Jiang MD [address] [place] [address] PCP - General Family Medicine 01/19/23 documented as of this encounter
--- OUTSIDE RECORDS SUMMARY | 2024-04-18 16:35 | XMS_ITS | Encounter Summary ---
Author Organization [facility] Address [facility] [place] [address] Care Team Providers Care Stitch Welder Name Role Phone Curtis Jiang MD Primary Care Provider [phone] Reason for Visit * Reason Comments Medication Refill Encounter Details Date Type Department Care Team ([facility] st Contact Info) Description 10/12/2023 [place] [address] Miguel Angel Blackman III, MD [facility] [place] [address] Chronic relapsing inflammatory optic neuropathy Social History [...] encounter Miscellaneous Notes * Telephone Encounter - Megan Kirk RN - 10/13/2023 8:40 AM EDT Prescription Renewal Request Name: Pradeep Brady : 1975 Prescription(s) Requested: Requested Prescriptions Pending Prescriptions Disp Refills azaTHIOprine (Azasan) 100 mg tablet [Pharmacy Med Name: AZATHIOPRINE 100 MG TABLET] 30 tablet 5 Sig: TAKE ONE TABLET BY MOUTH EVERY DAY Date of Encounter last in This Dept (If need an appointment send to secretaries to schedule): Miguel Angel Blackman III, MD (Physician) Neurology Encounter Date: 08/03/2023 Signed Next Encounter in This Dept: 02/03/2024 Date of Last Refill (for each medication): 04/16/2023 30:5 Medication category requirements (labs etc): Lab Results Component Value Date WBC 5.60 09/22/2023 HGB 15.1 09/22/2023 HCT 43.0 09/22/2023 MCV 89.0 09/22/2023 PLATELET 278 09/22/2023 Lab Results Component Value Date ALT 24 09/22/2023 AST 20 09/22/2023 ALKPHOS 65 09/22/2023 BILITOT 1.1 (H) 09/22/2023 Status of request: Pended Allergies Allergen Reactions Cefaclor Hives Ceclor Morphine Anaphylaxis Other [Unclassified Drug] Anaphylaxis bee Venom-Honey Bee Other Reaction(s): swelling Megan Kirk RN 10/13/23 8:40 AM documented in this encounter Plan of Treatment Upcoming Encounters Date Type Department Care Team (Late st Contact Info) Description 06/16/2024 8:40 AM EST Appointment Mammography/[place] [address] Radha Fernandez MD [address] [place] [address] 08/10/2024 9:30 AM EDT Office [place] [address] Miguel Angel Blackman III, MD [facility] [place] [address] documented as of this encounter Visit Diagnoses Diagnosis Chronic relapsing inflammatory optic neuropathy documented in this encounter Care Teams Stitch Welder Relationship Specialty Start Date End Date Curtis Jiang MD [address] [place] [address] PCP - General Family Medicine 01/19/23 documented as of this encounter
--- OUTSIDE RECORDS SUMMARY | 2024-04-18 16:35 | XMS_ITS | Encounter Summary ---
Author Organization [facility] [place] [address] Care Team Providers Care Calender Tender Name Role Phone Curtis Jiang MD Primary Care Provider [phone] Encounter Details Date Type Department Care Team (Latest Contact Info) Description 04/23/2023 2:00 PM EST TH Visit (TeleHealth) [place] [address] Miguel Angel Blackman III, MD [facility] [place] [address] Chronic relapsing inflammatory optic neuropathy Social History [...] as of this encounter Progress Notes * Miguel Angel Blackman III, MD - 04/23/2023 2:00 PM EST [facility] Telemedicine Follow-Up Visit (home) Dear Curtis Jiang MD, I saw Pradeep Brady via telemedicine today in follow-up for chronic relapsing inflammatory optic neuropathy (CRION). Below is my progress note with impression and plan. Please do not hesitate to callwith any questions. DISEASE SUMMARY: Principal neurologic diagnosis: [...] MRI thoracic spine: None Interval History: Pradeep Brady was last seen in clinic in January 2023. At that time she did not report any new or worsening vision changes. She had reported GI side effects on mycophenolate 1000 mg 2 times daily. The decision was made to decrease dosing to 500 mg 2 times daily. Subsequent to that appointment she was seen by neuro- ophthalmology who agreed with diagnosis of chronic relapsing inflammatory optic neuritis. Due to ongoing fatigue the decision was made to stop mycophenolate and start azathioprine. She was started on azathioprine 50 mg daily for 1 month. TP MT activity was normal. Azathioprine dosing was subsequently increased to 100 mg daily in March 2023. Since starting azathioprine she has had mild right upper quadrant discomfort, but no nausea vomiting or diarrhea. She has occasional softer stools. She had 1 transient episode of pain behind both eyes without associated vision loss. Overall she does not report any vision changes over the course the last 3 months. Current Medications: reviewed and updated in EMR Physical Examination VS were not able to be obtained due to patient location. She was alert and oriented to person, place, and time with normal language, attention and concentration, recent and remote memory, praxis, and intellectual function. Mood was euthymic. Affect was congruent. Ocular ductions were full without nystagmus. Muscles of facial expression moved normally. Hearing was grossly normal. There was no dysarthria. REVIEW OF IMAGING STUDIES: I reviewed the following studies: No new imaging REVIEW OF LABORATORY STUDIES: 04/20/2023: White blood cell count 7.5, ALC 1.07 (1.2 on 03/09/2023) LFTs notable for normal AST and ALT, slightly elevated total bilirubin and direct bilirubin (1.2 and 0.3 respectively) stable since 03/20/2023. Previously bilirubin had been normal on 03/09/2023 Assessment: ICD-10-CM 1. Chronic relapsing inflammatory optic neuropathy H46.8 Pradeep Brady is a 47 y.o. woman with chronic relapsing inflammatory optic neuritis/neuropathy currently on azathioprine 100 mg daily. She is reporting stable vision. She notes mild right upper quadrant discomfort. Since starting azathioprine she has had mild reduction in ALC and elevation in bilirubin. We will continue to monitor this with monthly LFTs and CBC with differential Treatment Plan: Continue azathioprine 100 mg daily Monitoring Plan: CBC with differential and LFTs monthly Follow-up: 3 months in clinic Thank you for allowing us to participate in [facility]. If you have questions or concerns please do not hesitate to call our clinic at [phone]. Miguel Angel Blackman III, MD [facility] Department of Neurology [facility] [address] P F 2:25 PM 04/23/2023 documented in this encounter Plan of Treatment Upcoming Encounters Date Type Department Care Team (Late st Contact Info) Description 06/16/2024 8:40 AM EST Appointment Mammography/[place] [address] Radha Fernandez MD [address] [place], [place] [address] 08/10/2024 9:30 AM EDT Office [place] [address] Miguel Angel Blackman III, MD [facility] [place] [address] documented as of this encounter Visit Diagnoses Diagnosis Chronic relapsing inflammatory optic neuropathy documented in this encounter Care Teams Calender Tender Relationship Specialty Start Date End Date Curtis Jiang MD [address] [place], [place] [address] PCP - General Family Medicine 01/19/23 documented as of this encounter
--- OUTSIDE RECORDS SUMMARY | 2024-04-18 16:35 | XMS_ITS | Encounter Summary ---
Author Organization [facility] Address [facility] [place] [address] Care Team Providers Care Process Chemist Name Role Phone Curtis Jiang MD Primary Care Provider [phone] Encounter Details Date Type Department Care Team (Latest Contact Info) Description 02/03/2024 Travel Social History Tobacco Use Types Packs/Day [...] 06/16/2024 8:40 AM EST Appointment Mammography/[place] [phone] Radha Fernandez MD [address] [place], [place] [address] 08/10/2024 9:30 AM EDT Office [place] [phone] Miguel Angel Blackman III, MD [facility] [place] [address] documented as of this encounter Visit Diagnoses Not on filedocumented in this encounter Care Teams Process Chemist Relationship Specialty Start Date End Date Curtis Jiang MD [address] [place] [address] PCP - General Family Medicine 01/19/23 documented as of this encounter
--- OUTSIDE RECORDS SUMMARY | 2024-04-18 16:35 | XMS_ITS | Encounter Summary ---
Author Organization [facility] Address [facility] [place] [address] Care Team Providers Care Market Basket Maker Name Role Phone Curtis Jiang MD Primary Care Provider [phone] Encounter Details Date Type Department Care Team (Latest Contact Info) Description 07/29/2023 Travel Social History Tobacco Use Types Packs/Day [...] 06/16/2024 8:40 AM EST Appointment Mammography/[place] [phone] Radha Fernandez MD [address] [place], [place] [address] 08/10/2024 9:30 AM EDT Office [place] [phone] Miguel Angel Blackman III, MD [facility] [place] [address] documented as of this encounter Visit Diagnoses Not on filedocumented in this encounter Care Teams Market Basket Maker Relationship Specialty Start Date End Date Curtis Jiang MD [address] [place] [address] PCP - General Family Medicine 01/19/23 documented as of this encounter
--- OUTSIDE RECORDS SUMMARY | 2024-04-18 16:35 | XMS_ITS | Encounter Summary ---
Author Organization [facility] Address [facility] [place] [address] Care Team Providers Care Through Freight Engineer Name Role Phone Curtis Jiang MD Primary Care Provider [phone] Encounter Details Date Type Department Care Team (Late st Contact Info) Description 08/03/2023 10:00 AM EDT [place] [address] Miguel Angel Blackman III, MD [facility] [place] [address] Chronic relapsing inflammatory optic neuropathy; Migraine without aura and without status migrainosus, not intractable Social History Tobacco Use Types Packs/Day Years Used Date Smoking Tobacco: Never Smokeless Tobacco: Never Alcohol Use Standard Drinks/Week Comments Not Currently 0 (1 standard drink = 0.6 oz pur e alcohol) occassionally Sex and Gender Information Value Date Recorded Sex Assigned at Not on file Gender Identity Not on file Sexual Orientation Not on file documented as of this encounter Last Filed Vital Signs Vital Sign Reading Time Taken Comments Blood Pressure 102/61 08/03/2023 9:53 AM EDT Pulse 77 08/03/2023 9:53 AM EDT Temperature - - Respiratory Rate - - Oxygen Saturation - - Inhaled Oxygen Concentration - - Weight 62.6 kg (138 lb) 08/03/2023 9:53 AM EDT Height 165.1 cm (5' 5) 08/03/2023 9:53 AM EDT r eported Body Mass Index 22.96 08/03/2023 9:53 AM EDT documented in this encounter Progress Notes * Miguel Angel Blackman III, MD - 08/03/2023 10:00 AM EDT [facility] Follow-up Visit Dear Curtis Jiang MD, I [...] contracts Visual delgadillo: OD: restriction in inferior orthodoxy field OS: restriction in inferior orthodoxy field. Pupils were 4 mm and briskly [...] 2023) Continue to follow-up with Dr. Chang, [facility] neuro-ophthalmology Treatment Plan: Continue on azathioprine 100 mg daily Continue on Nurtec for migraine rescue Follow-Up: 6 months Thank you for allowing us to participate in [employer] [facility]. If you have questions or concerns please do not hesitate to call our clinic at [phone]. Miguel Angel Blackman III, MD [facility] Department of Neurology [facility] [address] P F 8:15 AM 08/04/2023 documented in this encounter Plan of Treatment Upcoming Encounters Date Type Department Care Team (Late st Contact Info) Description 06/16/2024 8:40 AM EST Appointment Mammography/[place] [address] Radha Fernandez MD [address] [place] [address] 08/10/2024 9:30 AM EDT [place] [address] Miguel Angel Blackman III, MD [facility] [place] [place] [address] Scheduled Orders Name Type Priority Associated Diagnoses Orde r Schedule CBC (with Diff) Lab Routine Chronic relapsing inflammatory optic neuropathy Every 3 months for 6 Occurrences starting 08/03/2023 until 08/02/2024, 2 completed Hepatic Function Panel Lab Routine Chronic relapsing inflammatory optic neuropathy Every 3 months for 6 Occurrences starting 08/03/2023 until 08/02/2024, 1 completed documented as of this encounter Results * (ABNORMAL) CBC (with Diff) (03/21/2024 8:40 AM EST) WBC - External 3.87(L) EXTER NAL FACILITY RBC - External 4.69 EXTER NAL FACILITY Hemoglobin - External 14.3 EXTERNAL FACILITY Hematocrit - External 43.2 EXTERNAL FACILITY MCV - External 92 EXTER NAL FACILITY MCH - External 30.5 EXTER NAL FACILITY MCHC - External 33.1 EXTE RNAL FACILITY RDWCV - External 13.4 EXT ERNAL FACILITY Platelets - External 220 EXTERNAL FACILITY MPV - External 10.9 EXTER NAL FACILITY NRBC Abs - External 2.42 EXTERNAL FACILITY Neutrophils % - External 62.5 EXTERNAL FACILITY Lymphocytes % - External 24.3 EXTERNAL FACILITY Monocytes % - External 10.1 EXTERNAL FACILITY Eosinophils % - External 1.8 EXTERNAL FACILITY Basophils % - External 1.0 EXTERNAL FACILITY Immature Gran % - External 0.3 EXTERNAL FACILITY Lymphocyte ABS - External 0.94(L) EXTERNAL FACILITY Monocyte ABS - External 0.39 EXTERNAL FACILITY Eosinophil ABS - External 0.07 EXTERNAL FACILITY Basophil ABS - External 0.04 EXTERNAL FACILITY Blood VENOUS BLOOD SPECIMEN / Unknown 03/21/2024 8:40 AM EST Miguel Angel Blackman III, MD HEMATOLOGY [facility] EXTERNAL FACILITY * (ABNORMAL) Hepatic Function Panel (09/22/2023 4:00 PM EDT) Protein, Total 7.6 EXTER NAL FACILITY Albumin 4.9 EXTERNAL FACILITY Bilirubin, Total 1.1(H) EXT ERNAL FACILITY Bilirubin, Direct 0.2 EX TERNAL FACILITY Alkaline Phosphatase 65 EXTERNAL FACILITY Aspartate Aminotransferase 20 EXTERNAL FACILITY Alanine Aminotransferase 24 EXTERNAL FACILITY Blood 09/22/2023 4:00 PM EDT Miguel Angel Blackman III, MD CHEMISTRY [facility] Performing Organization Address [facility] de Phone Number EXTERNAL FACILITY * CBC [...] Angel Blackman III, MD HEMATOLOGY [facility] Performing Organization Address [facility] de Phone Number EXTERNAL FACILITY documented in this encounter Visit Diagnoses Diagnosis Chronic relapsing inflammatory optic neuropathy Migraine without aura and without status migrainosus, not intractable Migraine without aura, without mention of intractable migraine without mention of status migrainosus documented in this encounter Care Teams Through Freight Engineer Relationship Specialty Start Date End Date Curtis Jiang MD [address] [place] [address] PCP - General Family Medicine 01/19/23 documented as of this encounter
--- OUTSIDE RECORDS SUMMARY | 2024-04-18 16:35 | XMS_ITS | Encounter Summary ---
Author Organization [facility] [place] [address] Care Team Providers Care Analysis Manager Name Role Phone Curtis Jiang MD Primary Care Provider [phone] Reason for Visit * Reason Onset Date Comments Other 08/03/2023 Lab orders Encounter Details Date Type Department Care Team (Late st Contact Info) Description 08/03/2023 [place] [address] Miguel Angel Blackman III, MD [facility] [place] [address] Other (Lab orders) Social History Tobacco Use Types Packs/Day Years [...] encounter Miscellaneous Notes * Telephone Encounter - Annamarie Astudillo RN - 08/03/2023 10:56 AM EDT Lab orders electronically faxed to [facility] on 08/03/[address] Blackman. documented in this encounter Plan of Treatment Upcoming Encounters Date Type Department Care Team (Late Contact Info) Description 06/16/2024 8:40 AM EST Appointment Mammography[place] [address] Radha Fernandez MD [address] [place] [address] 08/10/2024 9:30 AM EDT [place] [address] Miguel Angel Blackman III, MD [facility] [place] [address] documented as of this encounter Visit Diagnoses Not on filedocumented in this encounter Care Teams Analysis Manager Relationship Specialty Start Date End Date Curtis Jiang MD [address] [place] [address] PCP - General Family Medicine 01/19/23 documented as of this encounter
--- OUTSIDE RECORDS SUMMARY | 2024-04-18 16:35 | XMS_ITS | Data Portability ---
Author Organization [place] - [facility], [facility] [place] [address] Assessment Encounter Date Assessment Date Assessment LastModified by Organization Details LastModified Time 12/24/2023 12/24/2023 Pradeep is a 48yo woman with PMH optic neuritis, migraine, ADHD, appendectomy, and hysterectomy presenting today with a dull ache in her left upper abdominal area that is associated with episodes of clamminess. Patient seen with DANY Rico from [facility]. Patient seen and evaluated by , Dr. Fernandez, and I reviewed and edited the note. eoleson Not available 12/24/2023 19:08:23 02/04/2024 02/04/2024 Pradeep Brady presents for a follow-up regarding persistent upper abdominal pain, which worsens at night and was previously associated with clamminess. She suspects her azathioprine medication and eating habits may be contributing factors. She also inquires about an ovarian cyst found on a CT scan. eoleson Not available 02/04/2024 14:01:58 03/21/2024 03/21/2024 Pradeep is 48F here today for annual wellness exam. Notable PMH includes optic neuritis, ADHD, and drug induced immunosuppressi on. Overall, she is doing well with no concerns other than this recent chronic weight gain of 20lbs in 14mo that could be indicative of hypothyroidism. Will work up with basic labs, refer to for mammo, and schedule nurse visits for upcoming vaccinations. Will follow up in 4mo for ADHD med management visit. Patient seen with DANY Son from [facility]. Patient seen and evaluated by , Dr. Fernandez, and I reviewed and edited the note. eoleson Not available 03/21/2024 18:56:12 Plan of Treatment Reminders Order Date Submit Date Provider Last Modified By Organization Details Last Modified Time Details Appointments Nurse Visit 2024 11:30A M [facility] Nursing Staff Not available Not available Not available Office Visit 2024 07:50A M Lyric Rebecca Not available Not available Not available Lab lipase, serum or plasma [address] [facility] (Registration ), [address] [place] [address] [place], [address], 12/25/2023 08:57:51 C-reactiv e protein, quantitat simone, serum or plasma [address] [facility] (Registration ), [address] [place] [address] [place], [address], 12/25/2023 08:57:41 FSH (follicle -stimulat ing hormone), serum - 1 yellow and 1 red drawn in office-SN 2023 024 [facility] (Registration ), [address] [place] [address] [place], [address], 12/28/2023 09:02:37 lipid panel, serum - 1 tiger and 1 purple drawn in office-SN [address] [facility] (Registration ), [address] [place] [address] [place], [address], 03/28/2024 08:36:30 TSH, serum, reflex free T4 [address] [facility] (Registration ), [address] [place] [address] [place], [address], 03/28/2024 08:36:36 CBC w/ auto diff 2023 024 [facility] (Registration ), [address] [place] [address] [place], [address], 03/21/2024 15:56:02 CMP, serum or plasma 2023 024 [facility] (Registration ), [address] [place] [address] [facility] [place], [address], 03/21/2024 16:57:27 CBC w/ diff - 1P 2024 025 [facility] (Registration ), [address] [place] [address] [place], [address], 04/18/2024 13:14:44 Referral None recorded. Procedures colonosco py screening (PROC) [address] [facility], [address] [place] [address] , [address], [place], [address], 02/02/2024 10:22:13 Surgeries None recorded. Imaging US, abdomen, complete - epigastri c and LUQ pain, but RUQ tendernes s on exam. Eval liver, gallbladd er, pancreas, spleen [address] (Radiology), [address] [place] [address] Dr [facility] [place], [address], 12/31/2023 07:41:06 US, transvagi nal - follow up on possible ovarian cyst seen on recent CT. Patient is postmenop ausal. 2023 024 [email or web address] [facility] (Radiology), [address] [place] [address] [place], [address], 02/04/2024 13:20:57 MAMMO, screening , bilateral 2023 024 [facility]/Mamm[facility], [address] [place], [address], 03/22/2024 15:36:29 Medication Orders Concerta 54 mg tablet,ex tended release 2023 024 [facility], [address] [place], [address], 10/21/2023 12:12:20 Patient TargetsNo targets recorded. Patient Instructions Encounter Date Encounter Id Patient Instructions Last Modified By Organization Details Last Modified Time 03/21/2024 [id number] learning about healthy weight eoleson Not available 03/21/2024 18:55:29 Reason for Referral None Reported. Results Created Date Observation Date Name Description Value Unit Range Abnormal Flag Note LastModifiedBy Organization Detail LastModifiedTime 12/24/1912/24/2023 C-STACIE CTIVE PROTE IN C-reactive protein < 0.50 mg/dL <or=0. 5 Not Available [address] [place], [address] 12/24/2023 21:57:14 12/24/1912/24/2023 LIPAS E lipase 30 U/L 16-77 normal Not Available Kristyn magaña [address] [place], [address] 12/24/2023 21:57:14 12/24/19 24 12/25/2023 FSH FSH 147.5 mIU/m L see note NOTE: Femal e FSH Refer ence Range s (Mens truat ing): PHYSI OLOGI VERONICA STATU S REFER ENCE RANGE ----- ----- ----- ----- ----- ----- ----- Folli cular (-12 to -4 days) : 2.5 - 10.2 mIU/m L Midcy deny (-3 to +2 days) : 3.4 - 33.4 mIU/m L Lutea l (+4 to +12 days) : 1.5 - 9.1 mIU/m L Postm enopa usal: 23.0 - 116.3 mIU/m L Refer ence Range s for pedia tric non-m enstr uatin g femal e patie nts have not been estab lishe d. Test perfo rmed or refer red by [facility] [address] [place] [address] Not Available [address] [place], [address] 12/28/2023 09:02:37 12/25/19 24 12/25/2023 ULTRA SOUND IMAGI NG REPOR T ultrasound imaging report Patie nt Name: Celestino Hillman aca Unit #: [id number] Loc: DI Order ing Provi leta: Indu Beavers Accou nt #: [id number] Statu s: REG CLI Prima ry Care Provi leta: Unkno wn,Un known Date of Exam: Sex: F Admis kim Date: 12/24 : 07/24 Age: 48 Exam( s) US ABDOM EN EXAM: US ABDOM EN CLINI VERONICA HISTO RY: ABDOM INAL PAIN, R10.9 TECHN IQUE: Ultra sound abdom en perfo rmed using stand umer gerald col. RM RISON : No exams were avail able for rm rison FINDI NGS: LIVER : Lakshmi l size and echog enici ty. No focal liver lesio ns are seen. GALLB LADDE R: No evide nce of sendy lithi asis. No evide nce of wall thick ening . No peric holec ystic fluid ident ified . KYMBERLY Y'S SIGN: Negat simone. BILIA RY SYSTE M: No intra hepat ic or extra hepat ic bilia ry ducta l dilat ion. KIDNE YS: Kidne ys are symme tric in size. No evide nce of renal calcu li. No evide nce of hydro nephr osis. No renal mass or cyst ident ified . PANCR EAS: Lakshmi l where visua lized . SPLEE N: Not enlar ged. ABDOM INAL AORTA AND IVC: Visua lized porti ons lakshmi l calib er. ASCIT ES: None seen. IMPRE SSION : Lakshmi l sonog raphi c appea roly of the upper abdom en. DATA REPOS ITORY : Order ed By: Indu Beavers CC: ----- ----- ----- ----- ----- ----- ----- ----- ----- ----- ----- ----- ----- ----- --- Dicta carri By: Malgorzata Leon M.D. 12/24 Trans claudiabe d By: Aminah Leon 12/24 This is privi leged , confi denti al infor flory kc inten ded only for the provi leta named . Any use or distr ibuti on by any perso n other than this provi leta is stric tly prohi bited . If you recei ve this repor t in error , pleas e notif y us immed iatel y at [phone] and retur n the origi nal repor t to us at the addre ss above . Thank -you. Not Available [address] [place], [address] 12/25/2023 13:48:22 03/21/20 24 03/21/2024 COMPL ETE BLOOD COUNT W/DIF F WBC 3.87 10_3/ uL 4.4-10 .8 low Not Available [address] [place], [address] 03/21/2024 15:56:02 03/21/20 24 03/21/2024 COMPL ETE BLOOD COUNT W/DIF F RBC 4.69 10_6/ uL 3.93-5 .22 normal Not Available [address] [place], [address] 03/21/2024 15:56:02 03/21/20 24 03/21/2024 COMPL ETE BLOOD COUNT W/DIF F HGB 14.3 g/dL 11.2-1 5.7 normal Not Available [address] [place], [address] 03/21/2024 15:56:02 03/21/20 24 03/21/2024 COMPL ETE BLOOD COUNT W/DIF F HCT 43.2 % 36.0-4 6.0 normal Not Available [address] [place], [address] 03/21/2024 15:56:02 03/21/20 24 03/21/2024 COMPL ETE BLOOD COUNT W/DIF F MCV 92 fL 80-95 normal Not Available Kristyn magaña [address] [place], [address] 03/21/2024 15:56:02 03/21/20 24 03/21/2024 COMPL ETE BLOOD COUNT W/DIF F MCH 30.5 pg 27.0-3 3.0 normal Not Available [address] [place], [address] 03/21/2024 15:56:02 03/21/20 24 03/21/2024 COMPL ETE BLOOD COUNT W/DIF F MCHC 33.1 % 32.0-3 6.0 normal Not Available [address] [place], [address] 03/21/2024 15:56:02 03/21/20 24 03/21/2024 COMPL ETE BLOOD COUNT W/DIF F RDW 13.4 % 11.7-1 4.6 normal Not Available [address] [place], [address] 03/21/2024 15:56:02 03/21/20 24 03/21/2024 COMPL ETE BLOOD COUNT W/DIF F platelet count 220 10_3/ uL 130-40 0 normal Not Available [address] [place], [address] 03/21/2024 15:56:02 03/21/20 24 03/21/2024 COMPL ETE BLOOD COUNT W/DIF F MPV 10.9 fL 8.0-11 .0 normal Not Available [address] [place], [address] 03/21/2024 15:56:02 03/21/20 24 03/21/2024 COMPL ETE BLOOD COUNT W/DIF F neutrophils % 62.5 % Not Available Bella Vistamami sow [address] [place], [address] 03/21/2024 15:56:02 03/21/20 24 03/21/2024 COMPL ETE BLOOD COUNT W/DIF F lymphocytes % 24.3 % Not Available Virginie sow [address] [place], [address] 03/21/2024 15:56:02 03/21/20 24 03/21/2024 COMPL ETE BLOOD COUNT W/DIF F monocytes % 10.1 % Not Available [address] [place], [address] 03/21/2024 15:56:02 03/21/20 24 03/21/2024 COMPL ETE BLOOD COUNT W/DIF F eosinophils % 1.8 % Not Available [address] [place], [address] 03/21/2024 15:56:02 03/21/20 24 03/21/2024 COMPL ETE BLOOD COUNT W/DIF F basophils % 1.0 % Not Available [address] [place], [address] 03/21/2024 15:56:02 03/21/20 24 03/21/2024 COMPL ETE BLOOD COUNT W/DIF F immature grans % 0.3 % Not Available [address] [place], [address] 03/21/2024 15:56:02 03/21/20 24 03/21/2024 COMPL ETE BLOOD COUNT W/DIF F nucleated RBC 0.0 % 0.0-0. 3 normal Not Available [address] [place], [address] 03/21/2024 15:56:02 03/21/20 24 03/21/2024 COMPL ETE BLOOD COUNT W/DIF F absolute neutrophil count 2.42 10_3/ uL 1.2-6. 7 normal Not Available [address] [place], [address] 03/21/2024 15:56:02 03/21/20 24 03/21/2024 COMPL ETE BLOOD COUNT W/DIF F absolute lymphocyte count 0.94 10_3/ uL 1.2-3. 4 low Not Available [address] [place], [address] 03/21/2024 15:56:02 03/21/20 24 03/21/2024 COMPL ETE BLOOD COUNT W/DIF F absolute monocyte count 0.39 10_3/ uL 0.1-0. 8 normal Not Available [address] [place], [address] 03/21/2024 15:56:02 03/21/20 24 03/21/2024 COMPL ETE BLOOD COUNT W/DIF F absolute eosinophil count 0.07 10_3/ uL 0.0-0. 7 normal Not Available [address] [place], [address] 03/21/2024 15:56:02 03/21/20 24 03/21/2024 COMPL ETE BLOOD COUNT W/DIF F absolute basophil count 0.04 10_3/ uL 0.0-0. 2 normal Not Available [address] [place], [address] 03/21/2024 15:56:02 03/21/20 24 03/21/2024 COMPR EHENS SIMONE METAB OLIC PANEL calcium 9.2 mg/dL 8.5-10 .1 normal Not Available [address] [place], [address] 03/21/2024 16:57:27 03/21/20 24 03/21/2024 COMPR EHENS SIMONE METAB OLIC PANEL glucose 109 mg/dL 74-106 high Not Available Kristyn magaña [address] [place], [address] 03/21/2024 16:57:27 03/21/20 24 03/21/2024 COMPR EHENS SIMONE METAB OLIC PANEL BUN 10 mg/dL 7-18 normal Not Available Kristyn magaña [address] [place], [address] 03/21/2024 16:57:27 03/21/20 24 03/21/2024 COMPR EHENS SIMONE METAB OLIC PANEL creatinine 0.7 mg/dL 0.55-1 .02 normal Not Available [address] [place], [address] 03/21/2024 16:57:27 03/21/20 24 03/21/2024 COMPR EHENS SIMONE METAB OLIC PANEL estimated GFR 107.95 mL/min /1.73M 2 The eGFR is calcu lated from a serum creat inine using the CKD-E PI 2020 equat ion. Other varia bles requi red for the equat ion are gende r and age; this equat ion does not inclu de a race coeff icien t. This equat ion has simil ar overa ll perfo rmanc e to previ ous equat ions excep t value s may diffe r, in parti cular , in patie nts with highe r value s of eGFR and young er-ag ed adult s. Not Available [address] [place], [address] 03/21/2024 16:57:27 03/21/20 24 03/21/2024 COMPR EHENS SIMONE METAB OLIC PANEL total protein 7.0 g/dL 6.4-8. 2 normal Not Available [address] [place], [address] 03/21/2024 16:57:27 03/21/20 24 03/21/2024 COMPR EHENS SIMONE METAB OLIC PANEL albumin 4.3 g/dL 3.4-5. 0 normal Not Available [address] [place], [address] 03/21/2024 16:57:27 03/21/20 24 03/21/2024 COMPR EHENS SIMONE METAB OLIC PANEL bilirubin, total 0.42 mg/dL 0.2-1. 0 normal Not Available [address] [place], [address] 03/21/2024 16:57:27 03/21/20 24 03/21/2024 COMPR EHENS SIMONE METAB OLIC PANEL alk phos 72 U/L 46-116 normal Not Available [address] [place], [address] 03/21/2024 16:57:27 03/21/20 24 03/21/2024 COMPR EHENS SIMONE METAB OLIC PANEL sodium 142 mmol/ L 136-14 5 normal Not Available [address] [place], [address] 03/21/2024 16:57:27 03/21/20 24 03/21/2024 COMPR EHENS SIMONE METAB OLIC PANEL potassium 4.5 mmol/ L 3.5-5. 1 normal Not Available [address] [place], [address] 03/21/2024 16:57:27 03/21/20 24 03/21/2024 COMPR EHENS SIMONE METAB OLIC PANEL chloride 106 mmol/ L 98-107 normal Not Available [address] [place], [address] 03/21/2024 16:57:27 03/21/20 24 03/21/2024 COMPR EHENS SIMONE METAB OLIC PANEL CO2 28.9 mmol/ L 21.0-3 2.0 normal Not Available [address] [place], [address] 03/21/2024 16:57:27 03/21/20 24 03/21/2024 COMPR EHENS SIMONE METAB OLIC PANEL anion gap 7.1 mmol/ L 3-11 normal Not Available [address] [place], [address] 03/21/2024 16:57:27 03/21/20 24 03/21/2024 COMPR EHENS SIMONE METAB OLIC PANEL AST 19 U/L 15-37 normal Not Available Kristyn [address] [place], [address] 03/21/2024 16:57:27 03/21/20 24 03/21/2024 COMPR EHENS SIMONE METAB OLIC PANEL ALT 27 U/L 14-59 normal Not Available Kristyn [address] [place], [address] 03/21/2024 16:57:27 03/21/20 24 03/21/2024 LIPID 2 cholesterol 169 mg/dL <200 Not Available [address] [place], [address] 03/21/2024 16:57:27 03/21/20 24 03/21/2024 LIPID 2 triglyceride 51 mg/dL <150 Not Available [address] [place], [address] 03/21/2024 16:57:27 03/21/20 24 03/21/2024 LIPID 2 HDL cholesterol 78 mg/dL 40-60 Not Available [facility] [address] [place], [address] 03/21/2024 16:57:27 03/21/20 24 03/21/2024 LIPID 2 calculated LDL 81 mg/dL <100 Natio nal Sendy stero l Educa tion Progr am (NCEP -ATPI II) class ifica tions : Sendy stero l <200 mg/dL Turner able Sendy stero l 200-2 39 mg/dL Borde rline High Sendy stero l >or=2 40 mg/dL High HDL <40 mg/dL Low HDL >or=6 0 mg/dL High LDL <100 mg/dL Optim al LDL 100-1 29 mg/dL Near Optim al/Ab ove Optim al LDL 130-1 59 mg/dL Borde rline High LDL 160-1 89 mg/dL High LDL >or=1 90 mg/dL Very High *The above refer ence range is for adult s 18 years or older . Not Available [address] [place], [address] 03/21/2024 16:57:27 03/21/20 24 03/21/2024 TSH (W/RE F FT4) TSH (w/ref FT4) 1.52 uIU/m L 0.36-3 .74 normal NOTE: Supra -phys iolog ic doses of Bioti n(B7) may cause false negat simone resul ts. Not Available [address] [place], [address] 03/21/2024 16:57:28 10/06/19 24 05/01/2023 mammo graph y imagi ng repor t Patimaria guadalupe t Name: Mary Brady Unit #: [id number] Loc: DI Orderi ng Provid er: Renard Sethi M.D. Accoun t #: [id number] Status : REG CLI Primar y Care Provid er: Date of Exam: Sex: F Admiss ion Date: : 1975 Age: 47 Addend a: Exam(s ) MG MAMMO SCREEN ING ADDEND UM: The images were review ed. I agree with the findin gs and impres kim below. Dictat ed By: Dina Dai Dina Dai 1540 Transc ribed By: Clarence Leon Exam(s ) MG MAMMO SCREEN ING EXAM: MG MAMMO SCREEN ING CLINIC AL HISTOR Y: SCREEN ING FOR BREAST CANCER Z12.31 . TECHNI QUE: Bilate ral full field digita l CC and MLO mammog raphic images were obtain ed with 3D tomosy nthesi s and utiliz ing comput er aided detect ion (CAD). COMPAR CAIN: Prior outsid e mammog [place] dating back to 2015 were review ed, the most recent being 2020. FINDIN GS: Fibrog landul ar tissue patter n is again noted be modera tely dense, this somewh at decrea sing the sensit ivity of the mammog terri for findin g hidden underl scarlett lesion s. Small benign -appea ring nodula r densit y infero medial ly in the left breast is unchan ged from prior mammog [place]. There are no new spicul ated masses nor malign ant appear ing microc alcifi cation groups . There is no signif icant randy ectura l distor tion nor skin thicke gio-r etract ion. IMPRES KIM: Dense bilate ral fibrog landul ar tissue . No obviou s radiog raphic eviden ce of malign elin nor signif icant change compar ed to prior outsid e mammog [place] dating back to 2015. BI-RAD S Catego ry 2 - Benign Findin gs Breast Densit y - Catego ry C - Hetero geneou sly dense Breast densit y Catego ry C or D implie s that the patien t has dense breast tissue . Dense breast tissue can make it harder to find cancer on a mammog terri. Dense breast tissue is also associ ated with an increa sed risk of breast cancer . This inform ation about the result of the mammog terri report was provid ed to the patien t to raise their awaren ess. Use this report when you speak with the patien t about their risks for breast cancer , which includ es their family histor y. At that time, you may recomm end additi onal screen ing tests (Ultra sound or MRI) as these tests may add signif icant inform ation. A negati ve radiog raphic report should not delay biopsy if a domina nt or clinic ally suspic ious mass is presen t. Up to ten percen t of cancer s are not identi fied on mammog shahnaz. A negati ve report may reinfo rce clinic al impres kim. Adenos is and dense breast s may obscur e an underl scarlett neopla sm. False positi ve report s averag e 6 to 10%. Patien t will receiv e a letter notify ing them of these result s. Ordere d By: Renard Sethi M.D. CC: ------ ------ ------ ------ ------ ------ ------ ------ ------ ------ ------ ------ - Dictat ed By: Sandor Siu M.D. 1725 172 Transc ribed By: Salbador PRYOR,Colleen umer 172 This is privil eged, confid ential inform ation intend ed only for the provid er named. Any use or distri bution by any person other than this provid er is strict ly prohib ited. If you receiv e this report in error, please notify us immedi ately at and return the origin al report to us at the addres s above. Thank- you. [email or web address] [facility] [address] [place], [address] 10/14/2023 09:32:58 01/29/20 24 01/29/2024 CT, abdom en + pelvi s, w/ contr ast Patimaria guadalupe t Name: Mary Brady Unit #: [id number] Loc: DI Orderi ng Provid er: Stephanie loganSushila gordon Accoun t #: [id number] Status : REG CLI Primar y Care Provid er: Unknow n,Unkn own Date of Exam: Sex: F : 1975 Age: 48 Exam(s ) a CT:CT abdome n pelvis w Exam(s ) CT ABDOME N PELVIS W EXAM: CT ABDOME N PELVIS W CLINIC AL HISTOR Y: ABD PAIN R10.9 TECHNI QUE: Imagin g Protoc ol: Axial comput ed tomogr aphy images with bunn l and sagitt al reform atted images were create d and review ed. CONTRA ST MATERI AL: Intrav enous: Omnipa que [address] volume :100 mL Oral: Yes COMPAR ACIN: No exams were availa ble for compar cain FINDIN GS: ABDOME N: Lung Bases: Normal where visual ized. Liver: Normal densit y. No measur able mass. Portal , Superi or Mesent helio, and Spleni c Veins: Unrema rkable . Gallbl adder and Biliar y Tract: No radiod ense calcul us or dilati on. Pancre as: Normal densit y, no abnorm al calcif icatio ns or inflam matory proces s. Spleen : Normal . Adrena ls: No masses seen. Kidney s: Normal size, contou r and axis. No radiod ense stones or obstru ctive uropat hy. No masses seen. Abdomi nal Aorta: Abdomi nal portio n non-di lated. Bowel: No obstru ction or bowel wall thicke gio. No eviden ce of append icitis . Perito sabrina Cavity : No ascite s, collec tion or mesent helio inflam matory respon se. No free air. Lymph Nodes: Within normal limits . Bones: Within normal limits for the patien t's age. Soft Tissue s: Unrema rkable . PELVIS : Bladde r: Symmet mamta disten tion, no gross wall thicke gio. Reprod uctive Organs : Note is made of a 2.2 cm right adnexa l cyst which is likely ovaria n. Lymph Nodes: Within normal limits . Bones: Within normal limits for the patien t's age. IMPRES KIM: No acute abdomi nal or pelvic proces s. RADIAT ION DOSE DELIVE RED: 351.31 mGy.cm Total DLP DATA REPOSI TORY: All CT scans at this facili ty are submit carri to the Nation al Radiol ogy Data Regist ry (NRDR) Dose Index Regist ry (DIR) with the [place] [facility] of Radiol ogy (ACR). RADIAT ION OPTIMI ZATION : [facility] use at least one of these dose optimi zation techni ques: automa carri exposu re contro l; mA and/or kV adjust ment per patien t size (inclu al target ed exams where dose is matche d to clinic al indica tion); or iterat simone recons tructi on. 1018-0 005: Total DLP = 0.00 mGy-cm Ordere d By: Sushila Luna CC: ------ ------ ------ ------ ------ ------ ------ ------ ------ ------ ------ ------ ---- Dictat ed By: Troy Blackman M.D. 1138 8 Transc ribed By: Troy Blackman 1138 This is privil eged, confid ential inform ation intend ed only for the provid er named. Any use or distri bution by any person other than this provid er is strict ly prohib ited. If you receiv e this report in error, please notify us immedi ately at and return the origin al report to us at the addres s above. Thank- you. [email or web address] [facility] (Radiology) [address], [place], [address], 02/02/2024 10:18:23 02/08/20 24 02/08/2024 ultra sound imagi ng repor t Patien t Name: Mary Brady Unit #: [id number] Loc: DI Orderi ng Provid er: Lyric Fernandezjen t #: [id number] Status : REG CLI Primar y Care Provid er: Unknow n,Unkn own Date of Exam: Sex: F Admiss ion Date: : 1975 Age: 48 Exam(s ) US PELVIS TRANSV AGINAL EXAM: US PELVIS TRANSV AGINAL CLINIC AL HISTOR Y: F/U OVARIA N CYST,N 83.209 ,F/U ABNL CT TECHNI QUE: Transa bdomin al and transv aginal imagin g was perfor med using standa rd protoc ol. COMPAR CAIN: CT CT ABDOME N PELVIS W from 2023 FINDIN GS: UTERUS : Status post hyster ectomy . OVARIE S: Right: Cyst simple cyst measur ing 3.7 x 2.7 x 2.7 cm. Left: Cyst not seen. Normal size on recent CT. DOPPLE R: Color: Symmet mamta and unifor m flow to both ovarie s. No hypere ashu. CUL-DE -SAC: Free fluid: Small amount of fluid adjace nt to the right ovary. IMPRES KIM: Status post hyster ectomy . Simple cyst of the left ovary measur ing 3.7 x 2.7 cm. No follow -up recomm ended. DATA REPOSI TORY: Ordere d By: Lyric Fernandez CC: ------ ------ ------ ------ ------ ------ ------ ------ ------ ------ ------ ------ - Dictat ed By: Dina Dai 1003 1003 Transc ribed By: Clarence Leon 1003 This is privil eged, confid ential inform ation intend ed only for the provid er named. Any use or distri bution by any person other than this provid er is strict ly prohib ited. If you receiv e this report in error, please notify us immedi keatonly at and return the origin al report to us at the addres s above. Thank- you. IVÁN [facility] [address], [place], [address] 02/08/2024 13:01:32 Result Notes None recorded. Problems Name Problem SNOMED Code Status Onset Date Resolution Date Notes Provider Name and Address Organization Details Recorded Time Fatigue 25685645 Active [address], [facility] [address], [facility] 4 08:07:31 Migraine 61139882 Active [address], [facility] [address], [facility] 3 15:43:11 Anxiety 95738225 Active [address], [facility] [address], [facility] 3 15:43:07 Optic neuritis 48522328 Completed 202202/03/[address], [facility] [address], [facility] 4 20:10:40 Sinus tachycar reilly 77975824 Active 2022 baseline MD Yasri [address], [place], [address], [facility] 3 13:12:37 Attentio n deficit hyperact ivity disorder 889495780 Active [address], [facility] [address], [facility] 3 15:42:59 Adult health examinat ion Active [address], [place], [address], [facility] 3 15:42:52 History of hysterec milan 889312262 Active [address], [place], [address], [facility] 3 13:22:29 Periodon mikaela disease 5929536 Active 2022 Mack Wisdom [facility] 16:51:38 Tachycar reilly 4696529 Completed 202208/19/2023 Mack Wisdom [facility] 16:52:01 Anxiety disorder 207162402 Completed 202208/19/2023 Mack iWsdom [facility] 16:52:10 Acquired absence of cervix and uterus 718264372 Completed 202208/19/2023 Mack Wisdom [facility] 16:51:54 Pain in throat 487939322 Active [address], [place], [address], [facility] 4 13:25:40 Immunosu ppressio n 36319947 Active [address], [place], [address], [facility] 4 13:29:34 Abdomina l pain 55554711 Active [address], [place], [address], [facility] 4 14:06:43 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 Procedures Surgical History Date Name Laterality Status Provider Name and Address Organization Details Recorded Time Hysterectomy completed MARILY ANDREWS MA [facility] 03/23/2023 12:52:04 Imaging Results Imaging Date Name Status LastModified by Organiz ation Details LastModified Time 05/01/2023 mammography imaging report completed [email or web address] [address] [place], [address] 10/14/2023 09:32:58 01/29/2024 CT, abdomen + pelvis, w/ contrast completed [email or web address] [facility] (Radiology) [address] [place] [address] [place], [address], 02/02/2024 10:18:23 02/08/2024 ultrasound imaging report completed [address] [facility] [place], [address] 02/08/2024 13:01:32 Procedure Notes None recorded. Medical Equipment None Reported. Allergies Allergen ID Allergen Name Allergen Category Reaction Reaction Severity Criticality Documentation Date Start Date Code Code System Note Provider Name and Address Organization Details Recorded Time 84862 honey bee venom medicatio n swelling Not available Not available 03/23/2023 95210 7 RxNorm MD Yasir [address], [place], [address] , [facility] 3 15:25:29 24332 Ceclor medicatio n rash mild Not available 04/24/2023202263 5 RxNorm hives Aller gyRea ction : 'Rash , hives '; Not Available [facility]ly [facility], [facility]–1983 4 05:10:27 71452 morphine medicatio n vomiting Not available Not available 12/24/2023 7052 RxNorm PATEL SANFORD MA null, [facility] 4 13:26:08 Medications Name Sig Start Date Stop Date Status Note LastModified by Organization Details LastModified Time venlafaxine ER 37.5 mg capsule,ext ended release 24 hr TAKE ONE CAPSULE BY MOUTH EVERY DAY 03/23 completed Not Available Not Available Not Available phenazopyri dine 200 mg tablet TAKE ONE TABLET BY MOUTH THREE TIMES A DAY NEEDED FOR 2 DAYS 03/23 completed Not Available Not Available Not Available fluorouraci l 5 % topical cream APPLY A SUFFICIEN T AMOUNT TO COVER THE FOREHEAD LESION BY TOPICAL ROUTE TWO TIMES A DAY 03/23 completed Not Available Not Available Not Available methylpheni date ER 54 mg tablet,exte nded release 24 hr TAKE ONE TABLET BY MOUTH EVERY DAY active Not Available Not Available No t Available azathioprin e 50 mg tablet TAKE ONE TABLET BY MOUTH EVERY DAY 03/23 completed Not Available Not Available Not Available prochlorper azine maleate 10 mg tablet TAKE ONE TABLET BY MOUTH EVERY 6 HOURS NEEDED 03/23 completed Not Available Not Available Not Available amoxicillin 500 mg tablet TAKE ONE TABLET BY MOUTH THREE TIMES A DAY 03/23 completed Not Available Not Available Not Available mycophenola te mofetil 500 mg tablet Take 2 tablets by mouth twice daily 10/20 completed Not Available Not Available Not Available bisacodyl 5 mg tablet,grant yed release TAKE PER COLONOSCO PY PREP 02/03 completed Not Available Not Available Not Available azathioprin e 100 mg tablet TAKE ONE TABLET BY MOUTH EVERY DAY active Not Available Not Available No t Available nitrofurant oin monohydrate /macrocryst als 100 mg capsule TAKE ONE CAPSULE BY MOUTH TWICE A DAY FOR 5 DAYS 03/23 completed Not Available Not Available Not Available EpiPen 0.3 mg/0.3 mL injection, auto-inject or Take by injection route. active Not Available Not Available No t Available chlorhexidi ne gluconate 0.12 % mouthwash SWISH 15 MLS (1 CAPFUL) BY MOUTH FOR 30 SECONDS AND THEN SPIT OUT, TWICE A DAY. DO NOT SWALLOW 03/23 completed Not Available Not Available Not Available diclofenac 1 % topical gel APPLY TOPICALLY THREE TIMES A DAY 03/23 completed Not Available Not Available Not Available ClearLax 17 gram/dose oral powder TAKE PER COLONOSCO PY PREP 02/03 completed Not Available Not Available Not Available dexmethylph enidate ER 30 mg capsule,ext ended release [id number] TAKE ONE CAPSULE BY MOUTH EVERY MORNING - MAXIMUM DAILY DOSE = 1 CAPSULE 03/23 completed Not Available Not Available Not Available [facility] mg disintegrat ing tablet TAKE 1 TABLET BY MOUTH NEEDED FOR MIGRAINE HEADACHE active Not Available Not Available No t Available Vitals Date Recorded Body height Body mass index (BMI) Body weight Body temperature Oxygen saturation Oxygen saturation in Arterial blood by Pulse oximetry Heart rate Systolic blood pressure Diastolic blood pressure Provider Name and Address Organization Details Last Updated DateTime 4 165.1 cm 24.3 kg/m2 62965.4 9 g 97.1 [degF] 99 % 99 % 74 /min 110 mm[Hg] 70 mm[Hg] MARILY ANDREWS MA [facility] 4 11:14:23 Date Recorded Body height Body temperature Body mass index (BMI) Body weight Oxygen saturation Oxygen saturation in Arterial blood by Pulse oximetry Heart rate Systolic blood pressure Diastolic blood pressure Provider Name and Address Organization Details Last Updated DateTime 4 165.1 cm 97.8 [degF] 23.5 kg/m2 68579.5 2 g 99 % 99 % 115 /min 112 mm[Hg] 76 mm[Hg] PATEL SANFORD MA [facility] 4 13:28:47 Date Recorded Body height Body mass index (BMI) Body weight Body temperature Oxygen saturation Oxygen saturation in Arterial blood by Pulse oximetry Heart rate Systolic blood pressure Diastolic blood pressure Provider Name and Address Organization Details Last Updated DateTime 4 165.1 cm 24.3 kg/m2 74580.4 9 g 97.9 [degF] 98 % 98 % 101 /min 110 mm[Hg] 62 mm[Hg] PATEL SANFORD MA [facility] 4 10:21:46 Date Recorded Body height Body temperature Body mass index (BMI) Body weight Oxygen saturation Oxygen saturation in Arterial blood by Pulse oximetry Heart rate Systolic blood pressure Diastolic blood pressure Provider Name and Address Organization Details Last Updated DateTime 4 165.1 cm 97.8 [degF] 25 kg/m2 25640.8 6 g 99 % 99 % 89 /min 108 mm[Hg] 70 mm[Hg] PATEL SANFORD MA [facility] 07:37:58 Date Recorded Body height Systolic blood pressure Diastolic blood pressure Provider Name and Address Organization Details Last Updated DateTime 04/18/2024 165.1 cm 102 mm[Hg] 66 mm[Hg] FLORIDA GUTIERREZ CMA [facility] 04/18/2024 11:38:37 Social History Question Answer Notes LastModified by Organizat ion Details LastModified Time Tobacco Smoking Status Never Smoker GRETCHEN OLIVA, [facility] 03/23/2023 15:08:14 Are You Currently Employed? Yes Information not available 03/23/2023 What Type Of Diet Are You Following? GLUTENFREE Information n ot available 03/23/2023 What Is The Highest Grade Or Level Of School You Have Completed Or The Highest Degree You Have Received? [id number] Information not available 03/23/2023 Who Is Your Employer? [employer] Information not available 03/23/2023 Are You Following A Fluid Restriction Diet? No Information no t available 03/23/2023 Do You Work In Healthcare? No Information not available 03/23/2023 What Do You Do For Fun? Needle Felting, Fn With Dogs Information not available 03/23/2023 Would You Say That, In General, Your Health Is Good Information not available 03/23/2023 Women Aged 18-50 - Would You Like To Become In The Next Year? (Female Patients Only) No Information not available 03/23/2023 How Often Does Anyone, Including Family, Physically Hurt You? Never Information not available 03/23/2023 How Often Does Anyone, Including Family, Insult Or Talk Down To You? Never Information no t available 03/23/2023 How Often Does Anyone, Including Family, Threaten You With Harm? Never Information not available 03/23/2023 How Often Does Anyone, Including Family, Scream Or Curse At You? Never Information not available 03/23/2023 Within The Past 12 Months, You Worried That Your Food Would Run Out Before You Got Money To Buy More. Never True Information n ot available 03/23/2023 Within The Past 12 Months, The Food You Bought Just Didn't Last And You Didn't Have Money To Get More. Never True Information n ot available 03/23/2023 How Hard Is It For You To Pay For The Very Basics Like Food, Housing, Medical Care, And Heating? Would You Say It Is: Not Hard At All Information not available 03/23/2023 In The Past 12 Months, Has Lack Of Reliable Transportation Kept You From Medical Appointments, Meetings, Work Or From Getting Things Needed For Daily Living? No Information not available 03/23/2023 What Is Your Housing Situation Today? I Have Housing. Information not available 03/23/2023 Who Do You Live With? , 2 Children And 2 Dogs Information not available 03/23/2023 How Often In The Past Year Have You Used Marijuana (including Smoking, Vaping, Dabbing, Or Edibles)? Never Information not available 03/23/2023 How Often In The Past Year Have You Used Prescription Medications That Were Not Prescribed To You? Never Information n ot available 03/23/2023 How Often In The Past Year Have You Taken Your Own Prescription Medication More Than The Way It Was Prescribed Or For Different Reasons Than Its Intended Purpose? Never Information no t available 03/23/2023 How Often In The Past Year Have You Used Other Drugs (for Example, Heroin, Cocaine, Meth, Salvia, Inhalants)? Never Information not available 03/23/2023 Have You Ever Used IV Drugs? No Information not available 03/23/2023 Date Of Most Recent SBINS 03/21/2024 Information not available 03/21/2024 Are You Following A Low Salt Diet? No Information not available 03/23/2023 What Was The Date Of Your Most Recent Tobacco Screening? 03/21/2024 Information not available 03/21/2024 What Is Your Relationship Status? Information not available 03/23/2023 Are You Sexually Active? Yes Information not available 03/23/2023 What Types Of Sporting Activities Do You Participate In? Hiking, Walking Dogs Information not available 03/23/2023 Are You Currently In School? No Information not available 03/23/2023 Do You Have Any Dietary Restrictions? Yes Information not available 03/23/2023 Sex: Female Functional Status Question Answer Note LastModified by Organization D etails LastModified Time What is your exercise level? Moderate Information not available 03/23/2023 Mental Status None recorded. Family History Nothing Reported. Medical History No medical history recorded. Gynecological HistoryNo gynecological history recorded. Obstetrics History GPAL:G 0 P 0 0 0 0 Immunizations Vaccine Type Date Status Note Provider Nam e and Address Organization Details Recorded Time COVID-19, mRNA, LNP-S, PF, yashira-sucrose, 30 mcg/0.3 mL 4 completed MD Yasir [address], [place], [address], [facility] 03/21/2024 18:54:49 SARS-COV-2 (COVID-19) vaccine, UNSPECIFIED 3 completed GRETCHEN OLIVA, [facility] 03/23/2023 15:19:17 SARS-COV-2 (COVID-19) vaccine, UNSPECIFIED 2 completed MARILY ANDREWS MA null, [facility], [facility] 03/23/2023 15:19:30 Pneumococcal conjugate PCV20, polysaccharide [id number] conjugate, adjuvant, PF 5 completed FLORIDA GUTIERREZ CMA null, [facility] 04/18/2024 11:40:56 Past Encounters Encounter ID Performer Location Encounter Start Date Encounter Closed Date Diagnosis/Indication Diagnosis SNOMED-CT Code Diagnosis ICD10 Code Diagnosis Note [id number] KASHIF SETHI MD [address] [address] 03/23/2023 14:32:58 03/23/2023 15:52:13 Adult health examination 770366736 Z00.00 And is a scheduled to date, mammogram being ordered. Patient states she has Cologuard at home for previous provider that she has yet to turn it and will do so. Congratula carri her healthy lifestyle, encouraged continuing the same. Annual exams going forward Attention deficit hyperactivity disorder 991622693 F90.9 Reviewed records we have, I have no issues continue her Concerta for now. Will need to get a proper controlled substance agreement completed at next visit. She has done before, discussed fully and she has no questions regarding it Optic neuritis 60555560 H46.9 Requested records from her neurologis t and ophthalmol ogist at [facility]. She states she has been worked up significan tly and rule out MS Anxiety 45541480 F41.9 Tend to be an anxious person she states, nothing that she needs assistance with at this time Migraine 21456393 G43.90 9 , Migraines, used to be severe and monthly, now with [facility] just once annually [id number] LYRIC FERNANDEZ MD [address] [address] 10/21/2023 11:03:53 10/21/2023 11:51:51 Attention deficit hyperactivity disorder 544302941 F90.9 Doing well on concerta. Screening for malignant neoplasm of colon 193429137 Z12.11 Due for colon cancer screening. History of hysterectomy 397344178 Z90.711 Offered FSH to evaluate menopausal status. Discussed limitation s of test. Discussed symptoms of menopause. Testing declined right now, may consider if having labs done for other reasons. Optic neuritis 88971579 H46.9 She will continue following with her specialist s.She will hold off on covid booster right now, she should certainly get one in the fall. Pain in throat 938389614 R07.0 Discussed I am not sure how to explain this. I would expect that if she had an esophageal issue, she would have symptoms more often than just with swallowing bread. Offered endoscopy vs monitoring . She prefers the latter approach. She will avoid bread. She will let me know if the symptoms begin happening with other foods or at other times, consider endoscopy at that time. [id number] [address] [address] 12/24/2023 13:16:54 12/24/2023 14:26:01 Abdominal pain 73174038 R10.9 Patient has been having a dull upper abdominal pain for the past 2.5 weeks. Given that she denied chest pain, palpitatio ns, or radiating pain to her shoulder or back, the pain is unlikely to be cardiac in nature. The pain is not associated with eating and is more lateral than substernal , making GERD less likely. She indicates pain in the upper abdomen (mostly left side) that is intermitte nt. However, she is more tender on palpation on the right side. Recent CBC and CMP were normal. Indolent pancreatit is is possible. Will order lipase and CRP to evaluate this further. Will send patient for abdominal ultrasound as well to rule out other structural causes of her pain. Her recent labs drawn two days ago (not in our records yet) showed normal WBC, but she is on azathiopri ne for recurrent optic neuritis which could mask leukocytos is due to underlying infection. She has an upcoming colonoscop y, and we can consider endoscopy at that time to evaluate other potential causes such as gastric ulcer if the ultrasound is inconclusi ve. History of hysterectomy 242953609 Z90.711 Pradeep is describing episodes of feeling clammy. She doesn't think these are hot flashes. Offered FSH to evaluate menopausal status at this time. Discussed limitation s of test. Discussed symptoms of menopause. Patient would like to test as long as other labs are being drawn. [id number] LYRIC FERNANDEZ MD [address] [address] 02/04/2024 10:13:31 02/04/2024 13:20:57 Abdominal pain 77693135 R10.9 - Patient reports nighttime pain predominat minh at this time. Previous diagnostic efforts including labs, ultrasound , CT scan, and colonoscop y have returned unremarkab le results. Pain overall seems to be improving. - Plan: Consider adjusting the time at which she takes azathiopri ne. Encourage more consistent meal times throughout the day. Should severe pain recur, the patient is advised to visit the ER. Persistent pain despite these adjustment s will necessitat e a referral to [facility] for further evaluation . Considerat ion for HIDA scan or endoscopy. Cyst of ovary 56696149 N 83.209 - A cyst was incidental ly discovered on a CT scan.- Plan: Recommend a transvagin al ultrasound for a more detailed assessment of the cyst. Postmenopausal state 764 [address] Z78.0 Offered discussion of HRT but she is not interested For bone health, encourage engagement in weight-matty ring exercises and the intake of vitamin D and calcium, recommendi ng 800 units of vitamin D and 1200 milligrams of calcium daily through diet and supplement s. [id number] LYRIC FERNANDEZ MD [address] [address] 03/21/2024 07:18:11 03/21/2024 09:28:59 Adult health examination 206089725 Z00.00 Screening mammography 24 188500 Z12.31 Active or passive immunization 735526941 Z23 Will return within subsequent weeks for nurse visits for Tetanus, shingrix, and PCV20. Hyperlipid emia screening 127563461 Z13.220 Body mass index 25-29 - overweight 460468297 Z68.25 Fatigue 63851943 R53.83 Recent fatigue, weight gain, and cold intoleranc e suggest potential hypothyroi dism. This is supported with PMH of needing levothyrox ine in past. Other causes of these symptoms could be related to her early post-menop ausal state and subsequent hormonal imbalances . Will workup with TSH, CBC, CMP and begin thyroid supplement ation if TSH elevated. If TSH normal, can consider HRT at some point. [id number] FLORIDA GUTIERREZ CMA [address] [address] 04/18/2024 11:21:45 04/18/2024 11:41:41 Active or passive immunization 204052703 Z23 Fatigue 18574849 R53.83 Health Concerns Section Related Observation LastModified by Organization Detai ls LastModified Time None Recorded Concern Status LastModified by Organization Details LastModified Time None Recorded Advance Directives Directive None Recorded Payers Encounter Date Sequence Insurance Name Policy Number Policy Taylor Covered Member ID Taylor Member ID Guarantor Name 10/21/2023 1 [place] [facility] [id number] Pradeep Brady [id number] Pradeep Brady 12/24/2023 1 [place] [employer] [place] [id number] Pradeep Brady [id number] Pradeep Brady 02/04/2024 1 [place] [place] [id number] Pradeep Brady [id number] Pradeep Brady 03/21/2024 1 [place] [facility] [id number] Pradeep Brady [id number] Pradeep Brady 04/18/2024 1 [facility] [id number] Pradeep Brady [id number] Pradeep Brady Notes Date Note Type Note Provider Name and Address Organization Details Recorded Time 10/21/2023 text/html Pradeep presents to transfer care and ask about a couple concerns she has. 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 She has a history of optic neuritis, peripheral vision is limited and she is partially blind. Sees neuro and ophtho at [facility]. Has seen [facility] as well. Now on azathioprine to try to prevent ongoing vision loss. She is careful about illness exposures. Wonders when she should get another covid vaccination. Last done in January.Liver enzymes fluctuate on the azathioprine. [facility] is monitoring this. ADHD on Concerta. Finds it helpful enough. Is s/p hysterectomy, removal of cervix. Does have ovaries. Wonders about how she will know if she is going through menopause. Has no symptoms as of yet. Her mother and sister also had hysterectomies at young ages. Her other concern is that she feels better when she doesn't eat gluten. Has not had formal testing for celiac. Was having knee swelling and cutting out gluten helped with this. She occasionally has bread and she notes that her throat hurts when she swallows bread. Does not happen with any other foods. LYRIC FERNANDEZ MD [address], [place], [address], [facility]. 10/21/2023 13:30:00 12/24/2023 text/html Pradeep is a 48yo woman with PMH optic neuritis, migraine, ADHD, appendectomy, and hysterectomy presenting today with a dull ache in her left upper abdominal area that is associated with episodes of clamminess. She said that this pain has been present for the past 2.5 weeks. She said that it comes and goes, but it has been hurting when she lays on her left side at night. She said it will sometimes wake her up from her sleep, but she falls back asleep if she rolls onto her right side. She said that the pain is a dull ache that sometimes feels like pressure and is often associated with feeling clammy. Her head breaks out into a cold sweat, and she feels this clammy sensation about 2-8 times a day. Denies upper chest pain, palpitations, radiating pain, pain in her shoulders/back/right abdomen, constipation, diarrhea, heartburn, SOB, dizziness, vertigo, nausea, or vomiting. The discomfort is not associated with a certain activity. She isn't sure if it is her heart or stomach. The pain is not brought on by eating. It primarily is noticed in the morning, evening, and middle of the night when it wakes her up. She last had a bowel movement 2 days ago. Her diet has not changed. Denies injuries or change in exercise habits. The only thing that changed around the time that this started was increased workload. LYRIC FERNANDEZ MD [address], [place], [address], [facility]. 12/24/2023 19:10:06 02/04/2024 text/html Abdominal Pain Follow-Up - Pradeep Brady presents for a follow-up visit regarding her abdominal pain. She was seen approximately 6 weeks ago with left upper abdominal pain associated with clamminess and right-sided tenderness on exam. The pain has not completely resolved and tends to worsen at night, particularly in the left upper side. Pradeep experienced a severe episode of discomfort about 10 days ago, which was alleviated by a hot shower. She suspects her stomach may be more sensitive due to azathioprine medication and her eating habits, which involve consuming little food during the day and a larger meal at night due to her work schedule. Pradeep reports that her night sweats and clamminess have resolved. Her previous labs, ultrasound, CT scan, and colonoscopy were all unremarkable. During her severe pain episode, she considered going to the ER but decided against it after the hot shower provided relief. Pradeep inquires about an ovarian cyst identified during a previous CT scan. Nutritional Health - Pradeep mentions that her vitamin B levels were low in 2019 and that she has been taking a multivitamin since then. She is interested in checking her vitamin B12 and D levels during her next blood work. MD Yasir [address], [place], [address], [place] [facility]. 02/04/2024 19:54:38 03/21/2024 text/html CC:Annual visit HPI:- Abd pain for which she was previously seen here in clinic is much improved since watching diet. Thinks may be aggravated by eating pork. # New weight gain- 20lbs in 14mo. Now 150lbs with BMI 25. Always been in the 130-140 range prior.- Weight and exercise are unchanged.- She thinks it could be menopause related (s/p hysterectomy but recent FSH significantly elevated)- Used to take levothyroxine for a borderline thyroid lab result from a different clinic, but was stopped years ago due to significant weight loss.- Feels more fatigued this year. Noticed mild swelling in ankles in AM and PM. Always feels subjectively cold. # Preventative- [place] UTD- Pap (s/p hysterectomy)- Mammo DUE- Covid, Flu, Tdap, shingrix, PCV20 all DUE MD Yasir [address], [place], [address], [place] [facility]. 03/21/2024 18:56:54 OBGyn Episode No OBEpisode recorded.
--- OUTSIDE RECORDS SUMMARY | 2024-04-18 16:35 | XMS_ITS | Encounter Summary ---
Author Organization [facility] Address [facility] [place] [address] Care Team Providers Care Insurance Coder Name Role Phone Curtis Jiang MD Primary Care Provider [phone] Reason for Visit * Reason Onset Date Comments Appointment 04/24/2023 Encounter Details Date Type Department Care Team (Late st Contact Info) Description 04/24/2023 [place] [address] Miguel Angel Blackman III, MD [facility] [place] [address] Appointment Social History Tobacco Use Types Packs/Day Years [...] encounter Miscellaneous Notes * Telephone Encounter - Tosin Brunson - 04/24/2023 10:40 AM EST Scheduling Instructions Provider: Dr Blackman Visit Type (paste MARTIN Instructions or manually enter): Return in about 3 months (around 07/23/2023) for In Person. If EMG Visit needed list diagnosis for the EMG to be used in Decision Tree: Appt Note: Chronic relapsing inflammatory optic neuropathy Additional Info Needed: documented in this encounter Plan of Treatment Upcoming Encounters Date Type Department Care Team (Late st Contact Info) Description 06/16/2024 8:40 AM EST Appointment Mammography/[place] [phone] Radha Fernandez MD [address] [place] [address] 08/10/2024 9:30 AM EDT [place] [phone] Miguel Angel Blackman III, MD [facility] [place] [address] documented as of this encounter Visit Diagnoses Not on filedocumented in this encounter Care Teams Insurance Coder Relationship Specialty Start Date End Date Curtis Jiang MD [address] [place] [address] PCP - General Family Medicine 01/19/23 documented as of this encounter
--- OUTSIDE RECORDS SUMMARY | 2024-04-18 16:35 | XMS_ITS | Encounter Summary ---
Author Organization [facility] Address [facility] [place] [address] Care Team Providers Care Cylinder Press Operator Apprentice Name Role Phone Curtis Jiang MD Primary Care Provider [phone] Reason for Visit * Reason Onset Date Comments Appointment 04/20/2023 Encounter Details Date Type Department Care Team (Late st Contact Info) Description 04/20/2023 Telephone [place] [address] Miguel Angel Blackman III, MD [facility] [place] [address] Appointment Social History Tobacco Use Types Packs/Day [...] encounter Miscellaneous Notes * Telephone Encounter - Jada Garber - 04/20/2023 3:13 PM EST Left message in regards to upcoming appointment. Patient's appointment is being changed to a telehealth per Dr. Blackman as he is not available in clinic. It patient does not want a telehealth, it will have to be rescheduled for a different date. Can send to Jada to schedule. Changing appointment in chart to telehealth. documented in this encounter Plan of Treatment Upcoming Encounters Date Type Department Care Team (Late st Contact Info) Description 06/16/2024 8:40 AM EST Appointment Mammography/[place] [phone] Radha Fernandez MD [address] [place] [address] 08/10/2024 9:30 AM EDT Office [place] [phone] Miguel Angel Blackman III, MD [facility] [place] [address] documented as of this encounter Visit Diagnoses Not on filedocumented in this encounter Care Teams Cylinder Press Operator Apprentice Relationship Specialty Start Date End Date Curtis Jiang MD [address] [place] [address] PCP - General Family Medicine 01/19/23 documented as of this encounter
--- OUTSIDE RECORDS SUMMARY | 2024-04-18 16:35 | XMS_ITS | Encounter Summary ---
Author Organization [facility] [place] [address] Care Team Providers Care Design Quality Engineer Name Role Phone Curtis Jiang MD Primary Care Provider [phone] Encounter Details Date Type Department Care Team (Latest Contact Info) Description 04/21/2023 External Results [place] [phone] Miguel Angel Blackman III, MD [facility] [place] [address] Chronic relapsing inflammatory optic neuropathy Social History [...] 06/16/2024 8:40 AM EST Appointment Mammography/[place] [address] Radha Fernandez MD [address] [address] 08/10/2024 9:30 AM EDT Office [place] [phone] Miguel Angel Blackman III, MD [facility] [place] [address] documented as of this encounter Procedures Procedure Name Priority Date/Time Associated Diagnosis Comments CBC (WITH DIFF) Routine 04/20/2023 4:33 PM EST Chronic relapsing inflammatory optic neuropathy HEPATIC FUNCTION PANEL Routine 04/20/2023 4:33 PM EST Chronic relapsing inflammatory optic neuropathy documented in this encounter Results * (ABNORMAL) Hepatic Function Panel (04/20/2023 4:33 PM EST) Protein, Total 7.6 [facility]TER [facility] Albumin 4.7 EXTER[facility]ACILITY Bilirubin, Total 1.2(H) EXTER[facility]ACILITY Bilirubin, Direct 0.3(H) [facility]ILITY Blood 04/20/2023 4:33 PM EST Miguel Angel Blackman III, MD CHEMISTRY [facility]AB L[facility] * (ABNORMAL) CBC (with Diff) (04/20/2023 4:33 PM EST) White Blood Cell 7.58 [facility]T [facility] Red Blood Cell 4.79 [facility] Hemoglobin 14.3 [facility]ACILITY Hematocrit 42.0 [facility]TER[facility]ACILITY Mean Cell Volume 88.0 [facility]T [facility] Mean Cell Hemoglobin 29.9 EXTER[facility]ACILITY Mean Cell Hemoglobin Concentration 34.0 EXTERNAL FACILITY RDW coefficient of variation 13.2 [facility]TER[facility]ILITY Platelet 272 [facility] Mean Platelet Volume 9.9 [facility]ACILITY Neutrophil % 77.0 EXTERNA L FACILITY Lymph % 14.1 EXTERNAL FACILITY Monocyte % 8.0 [facility]ACILITY Eosinophil Manual 0.1 EX TERNAL FACILITY Basophil % 0.5 [facility]ACILITY Immature Gran % 0.3 EXTE RNAL FACILITY Neutrophil Absolute (ANC) - Automated 5.83 [facility]ACILITY Lymph Absolute Manual 1.07(L) [facility]ACILITY Monocyte Abs 0.61 EXTERNA L FACILITY Eos Absolute Manual 0.01 [facility]ACILITY Baso Absolute Manual 0.04 [facility]ILITY Blood 04/20/2023 4:33 PM EST Miguel Angel Blackman III, MD [facility] documented in this encounter Visit Diagnoses Diagnosis Chronic relapsing inflammatory optic neuropathy documented in this encounter Care Teams Design Quality Engineer Relationship Specialty Start Date End Date Curtis Jiang MD [address] [place] [address] PCP - General Family Medicine 01/19/23 documented as of this encounter
--- OUTSIDE RECORDS SUMMARY | 2024-04-18 16:35 | XMS_ITS | Encounter Summary ---
Author Organization [facility] Address [facility] [place] [address] Care Team Providers Care Laboratory Apparatus Glass Grinder Name Role Phone Curtis Jiang MD Primary Care Provider [phone] Reason for Visit * Reason Onset Date Comments Medication Refill 04/14/2023 Encounter Details Date Type Department Care Team (Late st Contact Info) Description 04/14/2023 [place] [address] Miguel Angel Hdez MD [facility] [place] [address] Chronic relapsing inflammatory optic neuropathy Social History [...] encounter Miscellaneous Notes * Telephone Encounter - Keren Perez MA - 04/16/2023 9:45 AM EST Patient sending in refill request from her [facility]. * Telephone Encounter - Keren Perez MA - 04/16/2023 9:41 AM EST Prescription Renewal Request Name: Pradeep Brady : 1975 Prescription(s) Requested: Requested Prescriptions Pending Prescriptions Disp Refills azaTHIOprine (Azasan) 100 mg tablet 30 tablet 0 Sig: Take 1 tablet by mouth daily. Date of Encounter last in This Dept (If need an appointment send to secretaries to schedule): 01/19/2023 Yehuda Next Encounter in This Dept: 04/23/2023 Date of Last Refill (for each medication): 03/19/2023 30 tabs with 0 refills Medication category requirements (labs etc): n/a Status of request: Pended Allergies Allergen Reactions Cefaclor Hives Ceclor Morphine Anaphylaxis Other [Unclassified Drug] Anaphylaxis bee Keren Perez MA 04/16/23 9:41 AM documented in this encounter Plan of Treatment Upcoming Encounters Date Type Department Care Team (Late st Contact Info) Description 06/16/2024 8:40 AM EST Appointment Mammography/DXA at [place] [phone] Radha Fernandez MD [address] [place] [address] 08/10/2024 9:30 AM EDT Office Visit Neurology at [place] [phone] Miguel Angel Blackman III, MD [facility] [place] [address] documented as of this encounter Visit Diagnoses Diagnosis Chronic relapsing inflammatory optic neuropathy documented in this encounter Care Teams Laboratory Apparatus Glass Grinder Relationship Specialty Start Date End Date Curtis Jiang MD [address] [place] [address] PCP - General Family Medicine 01/19/23 documented as of this encounter
--- OUTSIDE RECORDS SUMMARY | 2024-04-18 16:35 | XMS_ITS | Encounter Summary ---
Author Organization [facility] Address [address] [place] [address] Care Team Providers Care Blow Mold Operator Name Role Phone None, Provider Primary Care Provider Unavailabl e Encounter Details Date Type Department Care Team (Late st Contact Info) Description 12/25/2023 Lab Requisition [facility] Pathology & Laboratory Medicine - [address] [phone] Outr Resulting Lab, Provider Social History Tobacco Use Types Packs/Day Years Used Date Smoking Tobacco: Never Assessed Comments Unknown Sex and Gender Information Value Date Recorded Sex Assigned at Not on file Legal Sex Female 18:10 EST Gender Identity Not on file Sexual Orientation Not on file documented as of this encounter Plan of Treatment Not on file documented as of this encounter Procedures Procedure Name Priority Date/Time Associated Diagnosis Comments FSH Routine 12/24/2023 14:25 EDT documented in this encounter Results * FSH (12/24/2023 14:25 EDT) FSH 147.5 See Note mIU/mL 12/25/2023 19:29 EDT [facility] Blood VENOUS BLOOD / Unknown 12/24/2023 14:25 EDT 12/25/2023 17:33 EDT Narrative [facility] - 12/25/2023 19:29 EDT NOTE: Female FSH Reference Ranges (Menstruating): PHYSIOLOGICAL STATUS ? REFERENCE RANGE ? Follicular (-12 to -4 days): ?? 2.5 - 10.2 mIU/mL Midcycle (-3 to +2 days): ?3.4 - 33.4 mIU/mL Luteal (+4 to +12 days): ? 1.5 - 9.1 mIU/mL Postmenopausal: ?23.0 - 116.3 mIU/mL Reference Ranges for pediatric non-menstruating female patients have not been established. us Provider Outr Resulting Lab CHEMISTRY & BLOOD GA S ORDERABLES Final Result Performing Organization Address City/State/[facility] Co de Phone Number [facility] [address], [place] [id number] documented in this encounter Visit Diagnoses Not on filedocumented in this encounter Care Teams Blow Mold Operator Relationship Specialty Start Date End Date None, Provider PCP - General 03/06/15 documented as of this encounter
--- OUTSIDE RECORDS SUMMARY | 2024-04-18 16:35 | XMS_ITS | Encounter Summary ---
Author Organization [facility] Address [facility] [place] [address] Care Team Providers Care Blanker Press Operator Name Role Phone Curtis Jiang MD Primary Care Provider [phone] Encounter Details Date Type Department Care Team (Late st Contact Info) Description 06/22/2023 External [place] [phone] Megan Kirk, RN Social History Tobacco Use [...] 06/16/2024 8:40 AM EST Appointment Mammography/[place] [address] Radha Fernandez MD [address] [place] [address] 08/10/2024 9:30 AM EDT [place] [address] Miguel Angel Blackman III, MD [facility] [address] documented as of this encounter Procedures Procedure Name Priority Date/Time Associated Diagnosis Comments HEPATIC FUNCTION PANEL Routine 06/22/2023 4:00 PM EDT documented in this encounter Results * Hepatic Function Panel (06/22/2023 4:00 PM EDT) Protein, Total 7.7 EXTER [facility]AL FACILITY Albumin 4.5 EXTERNAL FACILITY Bilirubin, Total 1.0 [facility]T [facility] Bilirubin, Direct 0.2 EX TERNAL FACILITY Alkaline Phosphatase 54 EXTERNAL FACILITY Aspartate Aminotransferase 21 EXTERNAL FACILITY Alanine Aminotransferase 19 [facility]ACILITY Blood 06/22/2023 4:00 PM EDT Miguel Angel Blackman III, MD CHEMISTRY ORDERAB LES [facility] documented in this encounter Visit Diagnoses Not on filedocumented in this encounter Care Teams Blanker Press Operator Relationship Specialty Start Date End Date Curtis Jiang MD [address] [place] [address] PCP - General Family Medicine 01/19/23 documented as of this encounter
--- OUTSIDE RECORDS SUMMARY | 2024-04-18 16:35 | XMS_ITS | Encounter Summary ---
Author Organization [facility] Address [facility] [place] [address] Care Team Providers Care Canvas Goods Supervisor Name Role Phone Curtis Jiang MD Primary Care Provider [phone] Encounter Details Date Type Department Care Team (Latest Contact Info) Description 10/05/2023 Travel Social History Tobacco Use Types Packs/Day [...] 06/16/2024 8:40 AM EST Appointment Mammography[place] [phone] Radha Fernandez MD [address] [place], [place] [address] 08/10/2024 9:30 AM EDT [place] [phone] Miguel Angel Blackman III, MD [facility] [place] [address] documented as of this encounter Visit Diagnoses Not on filedocumented in this encounter Care Teams Canvas Goods Supervisor Relationship Specialty Start Date End Date Curtis Jiang MD [address] [place] [address] PCP - General Family Medicine 01/19/23 documented as of this encounter
--- OUTSIDE RECORDS SUMMARY | 2024-04-18 16:35 | XMS_ITS | Encounter Summary ---
Author Organization [facility] Address [facility] [place] [address] Care Team Providers Care Vegetables Cook Name Role Phone Curtis Jiang MD Primary Care Provider [phone] Reason for Visit * Reason Onset Date Comments Medication Refill 04/16/2024 Encounter Details Date Type Department Care Team (Late st Contact Info) Description 04/16/2024 [place] [address] Miguel Angel Blackman III, MD [facility] [place] [address] Chronic relapsing inflammatory optic neuropathy Social History [...] Telephone Encounter - Megan Kirk RN - 04/18/2024 8:21 AM EST Images from the original note were not included. Prescription Renewal Request Name: Pradeep Brady : 1975 Prescription(s) Requested: Requested Prescriptions Pending Prescriptions Disp Refills azaTHIOprine (Azasan) 100 mg tablet 30 tablet 11 Sig: Take 1 tablet by mouth daily. Date of Encounter last in This Dept (If need an appointment send to secretaries to schedule): Miguel Angel Blackman III, MD (Physician) Neurology Encounter Date: 02/03/2024 Addendum Next Encounter in This Dept: 08/10/2024 Date of Last Refill (for each medication): azaTHIOprine (Azasan) 100 mg tablet TAKE ONE TABLET BY MOUTH EVERY DAY Dispense: 30 tablet, Refills: 5 ordered 10/13/2023 Medication category requirements (labs etc): Lab Results Component Value Date WBC 3.87 (L) 03/21/2024 WBC 5.60 09/22/2023 RBC 4.69 03/21/2024 RBC 4.83 09/22/2023 HGB 14.3 03/21/2024 HGB 15.1 09/22/2023 HCT 43.2 03/21/2024 HCT 43.0 09/22/2023 MCV 92 03/21/2024 MCV 89.0 09/22/2023 MCH 30.5 03/21/2024 MCH 31.3 09/22/2023 MCHC 33.1 03/21/2024 MCHC 35.1 09/22/2023 PLATELET 220 03/21/2024 PLATELET 278 09/22/2023 RDWCV 13.4 03/21/2024 RDWCV 13.3 09/22/2023 Status of request: Pended Allergies Allergen Reactions Cefaclor Hives Ceclor Morphine Anaphylaxis Other [Unclassified Drug] Anaphylaxis bee Venom-Honey Bee Other Reaction(s): swelling Megan Kirk RN 04/18/24 8:21 AM documented in this encounter Plan of Treatment Upcoming Encounters Date Type Department Care Team (Late st Contact Info) Description 06/16/2024 8:40 AM EST Appointment Mammography/[place] [address] Radha Fernandez MD [address] [place] [address] 08/10/2024 9:30 AM EDT Office [place] [address] Miguel Angel Blackman III, MD [facility] [place] [address] documented as of this encounter Visit Diagnoses Diagnosis Chronic relapsing inflammatory optic neuropathy documented in this encounter Care Teams Vegetables Cook Relationship Specialty Start Date End Date Curtis Jiang MD [address] [place] [address] PCP - General Family Medicine 01/19/23 documented as of this encounter
--- OUTSIDE RECORDS SUMMARY | 2024-04-18 16:35 | XMS_ITS | Referral Summary ---
Author Organization [facility] Address [address] [place] [address] Care Team Providers Care Dice Manager Name Role Phone None, Provider Primary Care Provider Unavailabl e Social History Tobacco Use Types Packs/Day Years Used Date Smoking Tobacco: Never Assessed Comments Unknown Sex and Gender Information Value Date Recorded Sex Assigned at Not on file Legal Sex Female 18:10 EST Gender Identity Not on file Sexual Orientation Not on file Plan of Treatment Not on file Care Teams Dice Manager Relationship Specialty Start Date End Date None, Provider PCP - General 03/06/15
--- OUTSIDE RECORDS SUMMARY | 2024-04-18 16:35 | XMS_ITS | Encounter Summary ---
Author Organization [facility] Address [facility] [place] [address] Care Team Providers Care Mixing Machine Feeder Name Role Phone Curtis Jiang MD Primary Care Provider [phone] Reason for Visit * Reason Comments Optic Neuropathy Encounter Details Date Type Department Care Team ([facility] st Contact Info) Description 10/05/2023 2:00 PM EDT Office [place] [address] [facility] [place] [address] bilateral optic neuritis Social History Tobacco Use Types Packs/Day Years [...] as of this encounter Progress Notes * Chela Chang MD - 10/05/2023 2:00 PM EDT Visual Acuity Visual Acuity (Snellen - Linear) Right Left Dist cc 20/20 -1 20/20 -2 Near cc 20/20 20/20 Correction: Contacts Tonometry Tonometry (Applanation, 2:39 PM) Right Left Pressure 21 21 Encounter Diagnosis Name Primary? bilateral optic neuritis Pradeep Brady is a 48 y.o. female referred by Dr. Miguel Angel Blackman with a history of presumptive CRION. Initial course: - diagnosed with left optic neuritis in 2012, managed with high-dose IV prednisone - left IT defect, Full work-up in 2012- negative for NMO, SLE, MOG. - MRI was unremarkable - between July and November 2013 she reports worsening visual field in the left eye and there was documenation of psosible right optic nerve edema at that time - [address] Maya Bee: ?acute zonal occult outer retinopathy however further electroretinogram was normal, progressive VF defect with changes of the nerve fiber layer rather than thinning of the outer retina. - visit with Dr Echevarria: felt that patient's visual field defects were not consistent with glaucoma. us). - 2015 MEEI evaluated for AZOOR, -ERG was normal. - followed as a glaucoma suspect in the setting of asymmetric cupping. - in 2019, she noticed right eye pain, with associated cervical lymphadenopathy and supraclavicularlymph nodes tender to touch, treated with a 2-day course of high-dose steroids, residual inferior temporal field defect in her right eye. -also recurrent bouts of bilateral joint pain and swelling that last for weeks at a time which respond to steroids. She has received systemic autoimmune work- up at [facility] including a lumbar puncture, blood work (negative SHITAL, Sjogren's antibody, syphilis, ANCA, ESR, CRP, B12, B2, cardiolipin, lupus anticoagulant). On exam today, patient demonstrates 20/20 vision at distance, no relative afferent pupillary defect, full color vision, good stereopsis. She has red- desaturation OS. On confrontational delgadillo there is a symmetric inferotemporal field loss (corroborated by her HVF 24-2). 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 Initial eye affected was left eye with periodic bilateral episodes. In some outside records she has been noted to have optic nerve edema. She was treated with steroids after her first episode in which she reported no change in her visual field but her color vision did improve. -criteria for CRION: -Hx of ON with at least 1 relapse, clinical evidence of loss of visual function, NMO-IgG seronegative, MRI of inflammed optic nerves, response to immunosuppressive tx and relapse when treatment discontinues. Not meeting the criteria for MS, NMO specturm. Her CSF was negative for OCBs , NMO/antiMOG was negative twice -Petzold A, Plant GT. Chronic relapsing inflammatory optic neuropathy: a systematic review of 122 cases reported. J Neurol. 2014;261(1):17-26. doi:10.1007/[id number] - stable exam today, will continue to monitor - she is tolerating azathioprine 100mg a day at this time 2) Glaucoma suspect based on fhx of glaucoma - nl IOP - monitor RTC 9-10 months HVF, neuro day I, Shakira Elliott, have performed the documentation for this encounter in the presence of and acting as a scribe for Chela Chang MD. I performed the services which were documented by the scribe, and I agree with the accuracy of the documentation in this encounter. Chela Chang MD documented in this encounter Plan of Treatment Upcoming Encounters Date Type Department Care Team (Late st Contact Info) Description 06/16/2024 8:40 AM EST Appointment Mammography/[place] [address] Radha Fernandez MD [address] [place] [address] 08/10/2024 9:30 AM EDT Office [place] [address] Miguel Angel Blackman III, MD [facility] [place] [address] documented as of this encounter Procedures Procedure Name Priority Date/Time Associated Diagnosis Comments FUNDUS PHOTOS - OU- BOTH EYES Routine 10/05/2023 3:47 PM EDT bilateral optic neuritis AUTOMATED VISUAL FIELD - EXTENDED - OU- BOTH EYES Routine 10/05/2023 3:46 PM EDT bilateral optic neuritis OCT OPTIC NERVE - OU - BOTH EYES Routine 10/05/2023 3:34 PM EDT bilateral optic neuritis documented in this encounter Results * Fundus Photos - OU - Both Eyes (10/05/2023 3:47 PM EDT) Anatomical Region Laterality Modality Other Narrative 10/05/2023 3:47 PM EDT Deep cups OU OD: WNL, deep OS: PPA, mild temporal pallor, myopic Chela Chang MD OPHTHALMOLOGY SE RVICES ORDERABLES * Automated Visual Field - Extended - OU - Both Eyes (10/05/2023 3:46 PM EDT) Anatomical Region Laterality Modality Other Narrative 10/05/2023 3:46 PM EDT Right Eye Threshold was 24-2. Strategy was BILL. Reliability was good. Progression has been stable. Foveal threshold was normal. Left Eye Threshold was 24-2. Strategy was BILL. Reliability was good. Progression has been stable. Foveal threshold was normal. Notes IT field loss OU, OS>OD Chela Chang MD OPHTHALMOLOGY SE RVICES ORDERABLES * Oct Optic Nerve - OU - Both Eyes (10/05/2023 3:34 PM EDT) Anatomical Region Laterality Modality Other Narrative 10/05/2023 3:34 PM EDT Right Eye Quality was good. Progression has no prior data. Left Eye Quality was good. Progression has no prior data. Notes [place] Spectralis OCT RNFL Right Eye Quality was good Left Eye Quality was good Notes Optic nerve report OD: ??Average RNFL: 83, classification = BNL OS: ??Average RNFL: 77, classification = BNL Interpretation Stable nerves as compared to outside imaging. Likely result of ON damage and myopia. Chela Chang MD OPHTHALMOLOGY SE RVICES ORDERABLES documented in this encounter Visit Diagnoses Diagnosis bilateral optic neuritis documented in this encounter Care Teams Mixing Machine Feeder Relationship Specialty Start Date End Date Curtis Jiang MD [address] [place] [address] PCP - General Family Medicine 01/19/23 documented as of this encounter
--- OUTSIDE RECORDS SUMMARY | 2024-04-18 16:35 | XMS_ITS | Continuity of Care Document ---
Author Organization [facility], [facility] Address [address] [place] [address] Assessment Encounter Date Assessment Date Assessment LastModified by Organization Details LastModified Time 02/04/2024 02/04/2024 Pradeep Brady presents for a follow-up regarding persistent upper abdominal pain, which worsens at night and was previously associated with clamminess. She suspects her azathioprine medication and eating habits may be contributing factors. She also inquires about an ovarian cyst found on a CT scan. [email or web address] Not available 02/04/2024 14:01:58 Plan of Treatment Reminders Order Date Submit Date Provider Last Modified By Organization Details Last Modified Time Details Appointments Nurse Visit 2024 11:30A M [facility] Nursing Staff Not available Not available Not available Office Visit 2024 07:50A M Radha Fernandez Not available Not available Not available Lab None recorded. Referral None recorded. Procedures None recorded. Surgeries None recorded. Imaging US, transvagi nal - follow up on possible ovarian cyst seen on recent CT. Patient is postmenop ausal. 2023 024 [email or web address] (Radiology), [address] [place], [address], 02/04/2024 13:20:57 Medication Orders None recorded. Patient TargetsNo targets recorded. Patient InstructionsNo instructions recorded. Reason for Referral None Reported. Results Created Date Observation Date Name Description Value Unit Range Abnormal Flag Note LastModifiedBy Organization Detail LastModifiedTime 01/29/2001/29/2024 CT, abdom en + pelvi s, w/ contr ast Patien t Name: Mary Brady Unit #: [id number] Loc: DI Orderi ng Provid er: Sushila Luna Accoun t #: [id number] Status : REG CLI Primar [...] st volume :100 mL Oral: Yes COMPAR CHANI: No exams were availa ble for compar chani FINDIN GS: ABDOME N: Lung Bases: Normal [...] limits for the patien t's age. IMPRES DARLENE: No acute abdomi nal or pelvic proces s. RADIAT ION DOSE DELIVE RED: 351.31 mGy.cm Total DLP DATA REPOSI TORY: All CT scans at this facili ty are submit carri to the Nation al Radiol ogy Data Regist ry (NRDR) Dose Index Regist ry (DIR) with the [place] of Radiol ogy (ACR). RADIAT ION OPTIMI ZATION : [facility] use at least one of these dose optimi zation techni ques: automa carri exposu re contro l; mA and/or kV adjust ment per patien t size (inclu la target ed exams where dose is matche d to clinic al indica tion); or iterat ann recons tructi on. 1018-0 005: Total DLP = 0.00 mGy-cm Ordere d By: Sushila Luna CC: ------ ------ ------ ------ ------ ------ ------ ------ ------ ------ ------ ------ ---- Dictat ed By: Troy Blackman M.D. 8 8 Transc ribed By: Troy Blackman 1138 This is privil eged, confid ential inform ation intend ed only for the provid er named. Any use or distri bution by any person other than this [facility] er is strict ly prohib ited. If you receiv e this report in error, please notify us immedi ately at [phone] and return the origin al report to us at the addres s above. Thank- you. [email or web address] (Radiology) [address] [place] [address] Dr, [place], [address], 02/02/2024 10:18:23 02/08/20 24 02/08/2024 ultra sound imagi ng repor t Patien t Name: Mary Brady Unit #: [id number] Loc: DI Orderi ng Provid er: Radha Fernandez Accoun t #: [id number] Status : REG CLI Primar y [...] med using standa rd protoc ol. COMPAR CHANI: CT CT ABDOME N PELVIS W from [...] adjace nt to the right ovary. IMPRES DARLENE: Status post hyster ectomy . Simple cyst of the left ovary measur ing 3.7 x 2.7 cm. No follow -up recomm ended. DATA REPOSI TORY: Rossy d By: Rebecca Radha CC: ------ ------ ------ ------ ------ ------ ------ ------ ------ ------ ------ ------ - Dictat ed By: Dina Dai 1003 100 Transc ribed By: Clarence Leon 100 This is privil eged, confid ential inform ation intend ed only for the provid er named. Any use or distri bution by any person other than this provid er is strict ly prohib ited. If you receiv e this report in error, please notify us immedi ately at [phone] and return the origin al report to us at the addres s above. Thank- you. IVÁN [address] , [place], [address] 02/08/2024 13:01:32 Result Notes None recorded. Problems Name Problem SNOMED Code Status Onset Date Resolution Date Notes Provider Name and Address Organization Details Recorded Time Fatigue 76171019 Active [address], [place], [address], [facility] 4 08:07:31 Migraine 61739174 Active [address], [place], [address], [facility] 3 15:43:11 Anxiety 79291795 Active [address], [place], [address], [facility] 3 15:43:07 Optic neuritis 49592483 Completed 202202/03/[address], [place], [address], [facility] 4 20:10:40 Sinus tachycar reilly 63805071 Active 2022 baseline MD [address], [place], [address], [facility] 3 13:12:37 Attentio n deficit hyperact ivity disorder 475580317 Active [address] [place], [address], [facility] 3 15:42:59 Adult health examinat ion Active [address], [place], [address], [facility] 3 15:42:52 History of hysterec milan 337151732 Active [address], [place], [address], [facility] 3 13:22:29 Periodon mikaela disease 4733543 Active 2022 [facility] 4 16:51:38 Tachycar reilly 8169305 Completed 202208/19/2023 [facility] 4 16:52:01 Anxiety disorder 349971409 Completed 202208/19/2023 [facility] 4 16:52:10 Acquired absence of cervix and uterus 789791022 Completed 202208/19/2023 [facility] 4 16:51:54 Pain in throat 041452177 Active [address], [place], [address], [facility] 4 13:25:40 Immunosu ppressio n 51394864 Active [address], [place], [address], [facility] 4 13:29:34 Abdomina l pain 07722779 Active [address], [place], [address], [facility] 4 14:06:43 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 Procedures Surgical History Date Name Laterality Status Provider Name and Address Organization Details Recorded Time Hysterectomy completed MARILY ANDREWS MA [facility] 03/23/2023 12:52:04 Imaging Results None recorded. Procedure Notes None recorded. Medical Equipment None Reported. Allergies Allergen ID Allergen Name Allergen Category Reaction Reaction Severity Criticality Documentation Date Start Date Code Code System Note Provider Name and Address Organization Details Recorded Time 18385 honey bee venom medicatio n swelling Not available Not available 03/23/2023 45948 7 RxNorm MD [address], [place], [address] , [facility] 3 15:25:29 73530 Ceclor medicatio n rash mild Not available 04/24/20232022 32376 5 RxNorm hives Aller gyRea ction : 'Rash , hives '; Not Available [facility] 4 05:10:27 39449 morphine medicatio n vomiting Not available Not available 12/24/2023 7052 RxNorm PATEL SANFORD MA null, [facility] 4 13:26:08 Medications Name Sig Start Date [...] enidate ER 30 mg capsule,ext ended release [id number] 50 TAKE ONE CAPSULE BY MOUTH EVERY MORNING - MAXIMUM DAILY DOSE = 1 CAPSULE 03/23 completed Not Available Not Available Not Available Nurtec ODT 75 mg disintegrat ing tablet TAKE [...] Updated DateTime 4 165.1 cm 24.3 kg/m2 04504.4 9 g 97.9 [degF] 98 % 98 % 101 /min 110 mm[Hg] 62 mm[Hg] PATEL SANFORD MA [facility] 4 10:21:46 Social History Question Answer Notes LastModified by Organizat ion Details LastModified Time Tobacco Smoking Status Never Smoker MARILY ANDREWS MA [facility], [facility] 03/23/2023 15:08:14 Are You Currently Employed? Yes Information not available 03/23/2023 What Type Of Diet Are You Following? GLUTENFREE Information n ot available 03/23/2023 What Is The Highest Grade Or Level Of School You Have Completed Or The Highest Degree You Have Received? [id number] Information not available 03/23/2023 Who Is Your Employer? [employer] Information not available 03/23/2023 Are You Following [...] mL 4 completed MD [address], [place], [address] 03/21/2024 18:54:49 SARS-COV-2 (COVID-19) vaccine, UNSPECIFIED 3 completed GRETCHEN OLIVA, [facility] 03/23/2023 15:19:17 SARS-COV-2 (COVID-19) vaccine, UNSPECIFIED 2 completed GRETCHEN OLIVA, [facility] 03/23/2023 15:19:30 Pneumococcal conjugate PCV20, polysaccharide [id number] conjugate, adjuvant, PF 5 completed VARSHA VILLALTA, [facility] 04/18/2024 11:40:56 Past Encounters Encounter ID Performer Location Encounter Start Date Encounter Closed Date Diagnosis/Indication Diagnosis SNOMED-CT Code Diagnosis ICD10 Code Diagnosis Note [id number] RADHA FERNANDEZ MD [address] [address] 02/04/2024 10:13:31 02/04/2024 13:20:57 Abdominal pain 27823698 R10.9 - Patient reports nighttime pain predominat [...] HIDA scan or endoscopy. Cyst of ovary 35263061 N 83.209 - A cyst was incidental ly discovered on a CT scan.- Plan: Recommend a transvagin al ultrasound for a more detailed assessment of the cyst. Postmenopausal state 764 [address]86 Z78.0 Offered discussion of HRT but she is not interested For bone health, encourage engagement in weight-matty ring exercises and the intake of vitamin D and calcium, recommendi ng 800 units of vitamin D and 1200 milligrams of calcium daily through diet and supplement s. Health Concerns Section Related Observation LastModified by Organization Detai ls LastModified Time None Recorded Concern Status LastModified by Organization Details LastModified Time None Recorded Payers Encounter Date Sequence Insurance Name Policy Number Policy Taylor Covered Member ID Taylor Member ID Guarantor Name 02/04/2024 1 [place] [facility] [id number] Pradeep Brady [id number] Pradeep Brady Notes Date Note Type Note Provider Name and Address Organization Details Recorded Time 02/04/2024 text/html Abdominal Pain Follow-Up - Pradeep [...] D levels during her next blood work. RADHA FERNANDEZ MD [address], [place], [address], [facility]. 02/04/2024 19:54:38 OBGyn Episode No OBEpisode recorded.
--- OUTSIDE RECORDS SUMMARY | 2024-04-18 16:35 | XMS_ITS | Encounter Summary ---
Author Organization [facility] Address [facility] [place] [address] Care Team Providers Care Waste Picker Name Role Phone Curtis Jiang MD Primary Care Provider [phone] Encounter Details Date Type Department Care Team (Latest Contact Info) Description 07/09/2023 Travel Social History Tobacco Use Types Packs/Day [...] 06/16/2024 8:40 AM EST Appointment Mammography/[place] [address] Radha Fernandez MD [address] [place], [place] [address] 08/10/2024 9:30 AM EDT Office [place] [address] Miguel Angel Blackman III, MD [facility] [place] [address] documented as of this encounter Visit Diagnoses Not on filedocumented in this encounter Care Teams Waste Picker Relationship Specialty Start Date End Date Curtis Jiang MD [address] [place] [address] PCP - General Family Medicine 01/19/23 documented as of this encounter
--- OUTSIDE RECORDS SUMMARY | 2024-04-18 16:35 | XMS_ITS | Clinical Summary ---
Author Organization [facility] Address [address] [place] [address] Care Team Providers Care Buffing Machine Operator Name Role Phone None, Provider Primary Care Provider Unavailabl e Social History Tobacco Use Types Packs/Day Years Used Date Smoking Tobacco: Never Assessed Comments Unknown Sex and Gender Information Value Date Recorded Sex Assigned at Not on file Legal Sex Female 18:10 EST Gender Identity Not on file Sexual Orientation Not on file Plan of Treatment Health Maintenance Due Date Last Done Comments Hepatitis C Screen 1975 Hepatitis B Vaccine (1 of 3 - 19+ 3-dose series) 07/24 COVID-19 Vaccine ( season) 2023 Care Teams Buffing Machine Operator Relationship Specialty Start Date End Date None, Provider PCP - General 03/06/15
--- OUTSIDE RECORDS SUMMARY | 2024-04-18 16:35 | XMS_ITS | Encounter Summary ---
Author Organization [facility] Address [facility] [place] [address] Care Team Providers Care Otr Company Driver Name Role Phone Curtis Jiang MD Primary Care Provider [phone] Encounter Details Date Type Department Care Team (Latest Contact Info) Description 05/22/2023 External Results Administration [place] [phone] Devika Keller, HEBREW PROFESSOR Chronic relapsing inflammatory optic neuropathy Social History [...] 06/16/2024 8:40 AM EST Appointment Mammography/[place] [address] Radha Fernandez MD [address] [place], [place] [address] 08/10/2024 9:30 AM EDT [place] [address] Miguel Angel Blackman III, MD [facility] [place] [address] documented as of this encounter Procedures Procedure Name Priority Date/Time Associated Diagnosis Comments CBC (WITH DIFF) Routine 05/22/2023 9:10 AM EST Chronic relapsing inflammatory optic neuropathy HEPATIC FUNCTION PANEL Routine 05/22/2023 9:10 AM EST Chronic relapsing inflammatory optic neuropathy documented in this encounter Results * (ABNORMAL) CBC (with Diff) (05/22/2023 9:10 AM EST) White Blood Cell 4.54 [facility]T [facility] Red Blood Cell 4.89 EXTER NAL FACILITY Hemoglobin 14.4 EXTERNAL [facility]ACILITY Hematocrit 42.5 EX[facility]ACILITY Mean Cell Volume 87.0 [facility]T [facility] Mean Cell Hemoglobin 29.4 EXTERNAL FACILITY Mean Cell Hemoglobin Concentration 33.9 EXTERNAL FACILITY RDW coefficient of variation 13.1 EX[facility]NAL [facility]ACILITY Platelet 238 EX[facility]ACILITY Mean Platelet Volume 9.6 EXTERNAL FACILITY Neutrophil % 63.4 EXTERNA L FACILITY Lymph % 25.3 EXTERNAL FACILITY Monocyte % 9.3 EXTERNAL FACILITY Eosinophil Manual 1.1 EX TERNAL FACILITY Basophil % 0.7 EXTERNAL FACILITY Immature Gran % 0.2 EXTE RNAL [facility]ACILITY Neutrophil Absolute (ANC) - Automated 2.88 EXTERNAL FACILITY Lymph Absolute Manual 1.15(L) EXTERNAL FACILITY Monocyte Abs 0.42 EXTERNA L FACILITY Eos Absolute Manual 0.05 EX[facility]NAL FACILITY Baso Absolute Manual 0.03 EX[facility]NAL FACILITY Blood 05/22/2023 9:10 AM EST Miguel Angel Blackman III, MD HEMATOLOGY ORDERA BLES Performing Organization Address [facility] Co de Phone Number EXTERNAL FACILITY * (ABNORMAL) Hepatic Function Panel (05/22/2023 9:10 AM EST) Protein, Total 7.8 EXTER NAL FACILITY Albumin 4.4 EXTERNAL FACILITY Bilirubin, Total 1.1(H) EXT ERNAL FACILITY Bilirubin, Direct 0.3(H) EX TERNAL FACILITY Alkaline Phosphatase 51 EXTERNAL FACILITY Aspartate Aminotransferase 23 EXTERNAL FACILITY Alanine Aminotransferase 19 EXTERNAL FACILITY Blood 05/22/2023 9:10 AM EST Miguel Angel Blackman III, MD CHEMISTRY ORDERAB LES EXTERNAL FACILITY documented in this encounter Visit Diagnoses Diagnosis Chronic relapsing inflammatory optic neuropathy documented in this encounter Care Teams Otr Company Driver Relationship Specialty Start Date End Date Curtis Jiang MD [address] [place] [address] PCP - General Family Medicine 01/19/23 documented as of this encounter
--- OUTSIDE RECORDS SUMMARY | 2024-04-18 16:35 | XMS_ITS | Encounter Summary ---
Author Organization [facility] Address [facility] [place] [address] Care Team Providers Care Contract Graphic Designer Name Role Phone Curtis Jiang MD Primary Care Provider [phone] Reason for Visit * Reason Comments Medication Refill Encounter Details Date Type Department Care Team ([facility] st Contact Info) Description 04/18/2024 [place] [address] Miguel Angel Blackman III, MD [facility] [place] [address] Chronic relapsing inflammatory optic neuropathy Social History [...] encounter Miscellaneous Notes * Telephone Encounter - Devika Keller, [facility] - 04/18/2024 12:36 PM EST Prescription Renewal Request Name: Pradeep Brady : 1975 Prescription(s) Requested: Requested Prescriptions Refused Prescriptions Disp Refills azaTHIOprine (Azasan) 100 mg tablet [Pharmacy Med Name: AZATHIOPRINE 100 MG TABLET] 30 tablet 5 Sig: TAKE ONE TABLET BY MOUTH EVERY DAY Refilled: azaTHIOprine (Azasan) 100 mg tablet Take 1 tablet by mouth daily. Dispense: 30 tablet, Refills: 11 ordered 04/18/2024 Pharmacy: [id number] - [address] Status of request: Duplicate Request Allergies Allergen Reactions Cefaclor Hives Ceclor Morphine Anaphylaxis Other [Unclassified Drug] Anaphylaxis bee Venom-Honey Bee Other Reaction(s): swelling Devika Keller CMA 04/18/24 12:36 PM documented in this encounter Plan of Treatment Upcoming Encounters Date Type Department Care Team (Late st Contact Info) Description 06/16/2024 8:40 AM EST Appointment Mammography/DXA at [place] [phone] Radha Fernandez MD [address] [place], [place] [address] 08/10/2024 9:30 AM EDT Office Visit Neurology at [place] [phone] Miguel Angel Blackman III, MD [facility] [place] [address] documented as of this encounter Visit Diagnoses Diagnosis Chronic relapsing inflammatory optic neuropathy documented in this encounter Care Teams Contract Graphic Designer Relationship Specialty Start Date End Date Curtis Jiang MD [address] [place], [place] [address] PCP - General Family Medicine 01/19/23 documented as of this encounter
--- OUTSIDE RECORDS SUMMARY | 2024-04-18 16:35 | XMS_ITS | Clinical Summary ---
Author Organization [facility] Address [facility] [place] [address] Care Team Providers Care Printing Agent Name Role Phone Curtis Jiang MD Primary Care Provider [phone] Allergies Active Allergy Reactions Criticality Noted Date Comments Cefaclor Hives High 04/04/2020 Ceclor Morphine Anaphylaxis High 03/29/2020 Unclassified Drug Anaphylaxis High 03/29/2020 bee Venom-Honey Bee 08/03/2023 Other Reaction(s): swelling Medications Medication Sig Dispensed Refills Start Date End Date Status methylphenidate (CONCERTA) 54 mg Tablet Extended Rel 24 hr Take 54 mg by mouth every morning. Active EPINEPHrine 0.3 mg/0.3 mL Auto-Injector epinephrine 0.3 mg/0.3 mL injection, auto-injector Active rimegepant (Nurtec ODT) 75 mg disintegrating tabletIndications:Zackary tico without aura and without status migrainosus, not intractable Take 1 tablet by mouth as needed (migraine headache) for up to 96 doses. 8 tablet 11 08/03/2023 Active azaTHIOprine (Azasan) 100 mg tabletIndications:Chr onic relapsing inflammatory optic neuropathy Take 1 tablet by mouth daily. 30 tablet 11 04/18/2024 Active Active Problems No known active problems Encounters Date Type Department Care Team Description 04/18/2024 [place] [phone] Miguel Angel Blackman III, MD Chronic relapsing inflammatory optic neuropathy 04/16/2024 [place] [address] Miguel Angel Blackman III, MD Chronic relapsing inflammatory optic neuropathy 03/25/2024 External [place] [address] Bee Cruz CMA Chronic relapsing inflammatory optic neuropathy 02/03/2024 9:00 AM EDT [place] [address] Miguel Angel Blackman III, MD Chronic relapsing inflammatory optic neuropathy; Encounter for monitoring azathioprine therapy 02/03/2024 Travel from Last 3 Months Family History Medical History Relation Comments Amblyopia Maternal Aunt Strabismus Maternal Aunt Cancer Maternal Grandfather Diabetes Maternal Grandmother Heart Disease Maternal Grandmother Cancer Other Leukemia Heart Disease Paternal Grandfather Glaucoma Paternal Grandmother Hypertension Neg Hx Macular Degeneration Neg Hx Retinal Detachment Neg Hx Thyroid Disease Neg Hx Relation Status Comments Maternal Aunt Maternal Grandfather Maternal Grandmother Other Paternal Grandfather Paternal Grandmother Social History Tobacco Use Types Packs/Day Years Used Date Smoking Tobacco: Never Smokeless Tobacco: Never Tobacco Cessation:Counseling Given: Not Answered Alcohol Use Standard Drinks/Week Comments Not Currently 0 (1 standard drink = 0.6 oz pur e alcohol) occassionally Sex and Gender Information Value Date Recorded Sex Assigned at Not on file Gender Identity Not on file Sexual Orientation Not on file Last Filed Vital Signs Vital Sign Reading Time Taken Comments Blood Pressure 98/66 02/03/2024 8:59 AM EDT Pulse 74 02/03/2024 8:59 AM EDT Temperature 36.1 ??C (97 ??F) 01/19/2023 8:05 AM EDT Respiratory Rate 12 10/27/2022 1:25 PM EDT Oxygen Saturation 98% 02/03/2024 8:59 AM EDT Inhaled Oxygen Concentration - - Weight 63.5 kg (140 lb) 02/03/2024 8:59 AM EDT r eported Height 165.1 cm (5' 5) 02/03/2024 8:59 AM EDT Body Mass Index 23.3 02/03/2024 8:59 AM EDT Plan of Treatment Upcoming Encounters Date Type Department Care Team (Late st Contact Info) Description 06/16/2024 8:40 AM EST Appointment Mammography/[place] [address] Radha Fernandez MD [address] [place] [address] 08/10/2024 9:30 AM EDT [place] [phone] Miguel Angel Blackman III, MD [facility] [place] [address] Health Maintenance Due Date Last Done Comments CT Colonography 1975 Colonoscopy 1975 Colorectal Cancer Screening 1975 FIT DNA 1975 FIT 1975 Sigmoidoscopy (10 year) with FIT yearly 1977 Sigmoidoscopy 1975 HIV screen 07/25/1995 Hepatitis C Screening 07/25/1995 Hepatitis B vaccine (0-59 yrs) (1) 1996 Tetanus/Diphtheria/Pertussis Vaccines (1 - Tdap) 07/24 HPV test 07/25/2007 PAP Smear 07/25/2007 Breast Cancer Share Decision Needed 2017 Breast Cancer screening 2017 Covid-19 Vaccine ( - season) 2023 Influenza (Flu) vaccine (1 o f 1 - Influenza standard series) 12/13/2023 Procedures Procedure Name Priority Date/Time Associated Diagnosis Comments ORDS - PROVIDER CARE SCAN 03/22/2024 12:00 AM EST CBC (WITH DIFF) Routine 03/21/2024 8:40 AM EST Chronic relapsing inflammatory optic neuropathy from Last 3 Months Results * Scan Doc: Ords - Provider Care (03/22/2024 12:00 AM EST) Narrative 03/22/2024 12:00 AM EST Ordered by an unspecified provider. Scanning Provider MEDIA MGR SCAN EXT O RDR/RSLT * (ABNORMAL) CBC (with Diff) (03/21/2024 8:40 [...] III, MD [facility] from Last 3 Months Care Teams Printing Agent Relationship Specialty Start Date End Date Curtis Jiang MD [address] [place], [place] [address] PCP - General Family Medicine 01/19/23
--- OUTSIDE RECORDS SUMMARY | 2024-04-18 16:35 | XMS_ITS | Continuity of Care Document ---
Author Organization [facility] Address [address] [place] [address] Assessment No assessment recorded. Plan of Treatment Reminders Order Date Submit Date Provider Last Modified By Organization Details Last Modified Time Details Appointments Nurse Visit 2024 11:30A M [place] [facility] Staff Not available Not available Not available Office Visit 2024 07:50A M Radha Fernandez Not available Not available Not available Lab CBC w/ diff - 1P 2024 025 [facility] (Registration ), [address] [place] [address] , [place], [address], 04/18/2024 13:14:44 Referral None recorded . Procedures None recorded . Surgeries None recorded . Imaging None recorded . Medication Orders None recorded . Patient TargetsNo targets recorded. Patient InstructionsNo instructions recorded. Reason for Referral None Reported. Problems Name Problem SNOMED Code Status Onset Date Resolution Date Notes Provider Name and Address Organization Details Recorded Time Fatigue 35698870 Active [address], [place], [address], [facility] 4 08:07:31 Migraine 01690764 Active [address], [place], [address], [facility] 3 15:43:11 Anxiety 20998864 Active [address], [place], [address], [facility] 3 15:43:07 Optic neuritis 50882849 Completed 202202/03/[address], [facility] [address] , [facility] 4 20:10:40 Sinus tachycar reilly 74855858 Active 2022 baseline MD [address], [facility] [address], [facility] 3 13:12:37 Attentio n deficit hyperact ivity disorder 258337567 Active [address], [place], [address] , [facility] 3 15:42:59 Adult health examinat ion Active [address], [facility] [address] , [facility] 3 15:42:52 History of hysterec milan 724128639 Active [address], [place], [address] , [facility] 3 13:22:29 Periodon mikaela disease 4959729 Active [address] [facility] 4 16:51:38 Tachycar reilly 6469444 Completed 202208/19/[address] [facility] 4 16:52:01 Anxiety disorder 915842476 Completed 202208/19/[address] [facility] 4 16:52:10 Acquired absence of cervix and uterus 784147564 Completed 202208/19/[address] 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 Procedures Surgical History Date Name Laterality Status Provider Name and Address Organization Details Recorded Time Hysterectomy completed MARILY ANDREWS MA [facility] 03/23/2023 12:52:04 Imaging Results None recorded. Procedure Notes None recorded. Medical Equipment None Reported. Allergies Allergen ID Allergen Name Allergen Category Reaction Reaction Severity Criticality Documentation Date Start Date Code Code System Note Provider Name and Address Organization Details Recorded Time 70809 honey bee venom medicatio n swelling Not available Not available 03/23/2023 78594 7 RxNorm KASHIF SETHI MD [address], [place], [address] [place] [address] 3 15:25:29 62097 Ceclor medicatio n rash mild Not available 04/24/2023202263 5 RxNorm hives Aller gyRea ction : 'Rash , hives '; Not Available [facility] 4 05:10:27 13264 morphine medicatio n vomiting Not available Not available 12/24/2023 7052 RxNorm PATEL SANFORD MA null, [facility] 4 13:26:08 Medications Name Sig Start Date [...] enidate ER 30 mg capsule,ext ended release [id number] TAKE ONE CAPSULE BY MOUTH EVERY MORNING - MAXIMUM DAILY DOSE = 1 CAPSULE 03/23 completed Not Available Not Available Not Available Nurtec ODT 75 mg disintegrat ing tablet TAKE 1 TABLET BY MOUTH NEEDED FOR MIGRAINE HEADACHE active Not Available Not Available No t Available Vitals Date Recorded Body height Systolic blood pressure Diastolic blood pressure Provider Name and Address Organization Details Last Updated DateTime 04/18/2024 165.1 cm 102 mm[Hg] 66 mm[Hg] FLOR[place] GUTIERREZ CMA [facility] 04/18/2024 11:38:37 Social History Question Answer Notes LastModified by Organizat ion Details LastModified Time Tobacco Smoking Status Never Smoker GRETCHEN OLIVA, [facility] 03/23/2023 15:08:14 Are You Currently Employed? Yes Information not available 03/23/2023 What Type Of Diet Are You Following? GLUTENFREE Information n ot available 03/23/2023 What Is The Highest Grade Or Level Of School You Have Completed Or The Highest Degree You Have Received? IM68649-5 Information not available 03/23/2023 Who Is Your Employer? [employer] Information not available 03/23/2023 Are You Following [...] PF, yashira-sucrose, 30 mcg/0.3 mL 4 completed RADHA FERNANDEZ MD [address], [place], [address], [facility]. 03/21/2024 18:54:49 SARS-COV-2 (COVID-19) vaccine, UNSPECIFIED 3 completed GRETCHEN OLIVA, [facility], [facility] 03/23/2023 15:19:17 SARS-COV-2 (COVID-19) vaccine, UNSPECIFIED 2 completed GRETCHEN OLIVA, [facility], [facility] 03/23/2023 15:19:30 Pneumococcal conjugate PCV20, polysaccharide [id number] conjugate, adjuvant, PF 5 completed [place] GUTIERREZ CMA [facility] 04/18/2024 11:40:56 Past Encounters Encounter ID Performer Location Encounter Start Date Encounter Closed Date Diagnosis/Indication Diagnosis SNOMED-CT Code Diagnosis ICD10 Code Diagnosis Note [id number] RADHA FERNANDEZ MD [address] [address] 03/21/2024 07:18:11 03/21/2024 09:28:59 Adult health examination 282123352 Z00.00 Screening mammography 24 649724 Z12.31 Active or passive immunization 606523458 Z23 Will return within subsequent weeks for nurse visits for Tetanus, shingrix, and PCV20. Hyperlipid emia screening 673173920 Z13.220 Body mass index 25-29 - overweight 057594135 Z68.25 Fatigue 87731397 R53.83 Recent fatigue, weight gain, and cold [...] normal, can consider HRT at some point. [id number] [place] GUTIERREZ CMA [address] [address] 04/18/2024 11:21:45 04/18/2024 11:41:41 Active or passive immunization 921243203 Z23 Fatigue 69969431 R53.83 Health Concerns Section Related Observation LastModified by Organization Detai ls LastModified Time None Recorded Concern Status LastModified by Organization Details LastModified Time None Recorded Payers Encounter Date Sequence Insurance Name Policy Number Policy Taylor Covered Member ID Taylor Member ID Guarantor Name 04/18/2024 1 [facility] [id number] Pradeep Brady [id number] Pradeep Brady OBGyde Episode No OBEpisode recorded.
--- OUTSIDE RECORDS SUMMARY | 2024-04-18 16:35 | XMS_ITS | Encounter Summary ---
Author Organization [facility] Address [address] [place] [address] Care Team Providers Care Boring And Filling Machine Operator Name Role Phone Unavailable Primary Care Provider Unavailabl e Encounter Details Date Type Department Care Team (Latest Contact Info) Description 08/12/1999 11:39 EDT - 08/12/1999 11:59 EDT Hospital Encounter [address] [address] Brandin Correa MD Discharge Disposition: Auto Discharge Social History [...] Procedure Name Priority Date/Time Associated Diagnosis Comments HEMAGRAM & DIFF Routine 08/12/1999 12:40 EDT COMPREHENSIVE METABOLIC PANEL (CMP) Routine 08/12/1999 12:40 EDT documented in this encounter Results * (ABNORMAL) HEMAGRAM & DIFF (08/12/1999 12:40 EDT) WBC 7.20 4.0 - 12.4 K/cmm [facility] RBC 5.00 3.86 - 5.04 M/cmm [facility] Hemoglobin 15.0 11.6 - 15.2 gm/dl [facility] HCT 43.6 34.9 - 44.4 % [facility] MCV 87 81 - 98 fl [facility] MCH 30.0 26.7 - 33.3 pg [facility] MCHC 34.4 32.1 - 35.9 gm/dl [facility] PLT 245 141 - 320 K/cmm [facility] Type of Diff: Manual [facility] Neutrophils 86(H) 45.5 - 79.7 % [facility] Lymphocytes 4(L) 15.0 - 46.8 % [facility] Monocytes 9 1.8 - 12.0 % [facility] Basophils 1 0.2 - 1.4 % [facility] ABS Neutrophils 6.19 2.20 - 8.85 K/cmm [facility] ABS Lymphs 0.29(L) 1.09 - 3.30 K/cmm [facility] ABS Monocytes 0.65 0.1 - 0.8 K/cmm [facility] ABS Basophils 0.07 0.01 - 0.11 K/cmm [facility] RBC Morphology Norm [facility] 08/12/1999 12:4 0 EDT 08/12/1999 12:40 EDT Brandin Correa MD HISTORICAL LAB FOR SQ LOAD Final Result [facility] [address] [place] [address] * (ABNORMAL) COMPREHENSIVE METABOLIC PANEL (08/12/1999 12:40 EDT) Potassium 3.7 3.5 - 5.0 mEq/L [facility] Sodium 141 136 - 145 mEq/L [facility] Chloride 106 96 - 110 mEq/L [facility] CO2 25 24 - 30 mEq/L [facility] Total Alkaline Phosphatase 53 38 - 126 U/L [facility] Bilirubin, Total 0.9 0.2 - 1.3 mg/dl [facility] AST 16 8 - 50 U/L [facility] ALT 21 15 - 75 U/L [facility] Albumin 3.9 3.0 - 5.5 g/dl [facility] Total Protein 6.9 6.0 - 8.5 g/dl [facility] Creatinine 0.6(L) 0.7 - 1.5 mg/dl [facility] BUN 13 10 - 26 mg/dl [facility] Calcium 9.2 8.5 - 10.5 mg/dl [facility] Calculated Calcium 9.7 8.5 - 10.5 mg/dl [facility] Glucose, Serum 99 70 - 110 mg/dl [facility] Albumin/Globulin Ratio 1.3 [facility] 08/12/1999 12:4 0 EDT 08/12/1999 12:40 EDT Brandin Correa MD CHEMISTRY & BLOOD GAS ORDERABLES Final Result Performing Organization Address City/State/[facility] Co de Phone Number [facility] [address] [place] [address] documented in this encounter Visit Diagnoses Not on filedocumented in this encounter
--- OUTSIDE RECORDS SUMMARY | 2024-04-18 16:35 | XMS_ITS | Encounter Summary ---
Author Organization [facility] Address [facility] [place] [address] Care Team Providers Care Automatic Riveting Machine Operator Name Role Phone Curtis Jiang MD Primary Care Provider [phone] Encounter Details Date Type Department Care Team (Latest Contact Info) Description 08/03/2023 Travel Social History Tobacco Use Types Packs/Day [...] 06/16/2024 8:40 AM EST Appointment Mammography/[place] [phone] Radha Fernandez MD [address] [place], [place] [address] 08/10/2024 9:30 AM EDT [place] [address] Miguel Angel Blackman III, MD [facility] [place] [address] documented as of this encounter Visit Diagnoses Not on filedocumented in this encounter Care Teams Automatic Riveting Machine Operator Relationship Specialty Start Date End Date Curtis Jiang MD [address] [place] [address] PCP - General Family Medicine 01/19/23 documented as of this encounter
--- OUTSIDE RECORDS SUMMARY | 2024-04-18 16:35 | XMS_ITS | Encounter Summary ---
Author Organization [facility] Address [facility] [place] [address] Care Team Providers Care Unclaimed Property Officer Name Role Phone Curtis Jiang MD Primary Care Provider [phone] Encounter Details Date Type Department Care Team (Late st Contact Info) Description 02/03/2024 9:00 AM EDT [place] [address] Miguel Angel Blackman III, MD [facility] [place] [address] Chronic relapsing inflammatory optic neuropathy; Encounter for monitoring azathioprine therapy Social History Tobacco Use Types Packs/Day Years [...] Pulse 74 02/03/2024 8:59 AM EDT Temperature - - Respiratory Rate - - Oxygen Saturation 98% 02/03/2024 8:59 AM EDT Inhaled Oxygen Concentration - - Weight 63.5 kg (140 lb) 02/03/2024 8:59 AM EDT r eported Height 165.1 cm (5' 5) 02/03/2024 8:59 AM EDT Body Mass Index 23.3 02/03/2024 8:59 AM EDT documented in this encounter Progress Notes * Miguel Angel Blackman III, MD - 02/03/2024 9:00 AM EDT [facility] Follow-up Visit Dear Curtis Jiang MD, I saw Pradeep Brady in clinic today in follow-up for chronic relapsing inflammatory optic neuropathy. All parties consented for use of DADA to document this visit. Below is my progress note with impression [...] None Interval History: Pradeep was last seen in clinic in July 2023. At that time she did not report any changes in vision. She continued on azathioprine. History of Present Illness Today, Pradeep reports experiencing fatigue, which she attributes to a combination of menopause, herwork schedule, and the medication azathioprine. She has not noticed any changes in her vision and has recently switched to daily contact lenses, which she finds beneficial. She denies any new neurological symptoms such as cognitive changes, numbness, weakness, or balance issues. Her migraines are well-managed with Nurtec. Current Medications: reviewed and updated in EMR Physical Examination She was alert and oriented to person, place, and time with normal language, attention and concentration, recent and remote memory, praxis, and intellectual function. Mood was euthymic. Affect was congruent. Visual acuity was 20/20 OD, 20/15 OS with contracts Visual delgadillo: OD: restriction in inferior amish field OS: restriction in inferior amish field. Pupils were 4 mm and briskly reactive OU to 2 mm with a relative afferent pupillary defect on OS. Funduscopic examination was notable for optic disc pallor on L. Ocular ductions were full without nystagmus. Facial sensation was normal. Muscles of facial expression moved normally. Hearing was normal. There was no dysarthria. Standard gait was normal. REVIEW OF LABORATORY STUDIES: 12/22/2023: CBC diff and LFTs - unremarkable Assessment: ICD-10-CM 1. Chronic relapsing inflammatory optic neuropathy H46.8 2. Encounter for monitoring azathioprine therapy Z51.81 Z79.624 Pradeep Brady is a 48 y.o. woman with probable chronic relapsing inflammatory optic neuropathy (CRION) currently on azathioprine 100 mg daily. Visual findings on examination today are relatively stable. She is experiencing excessive fatigue which could be multifactorial: Work related stress (has worked about 35 days straight), menopause/perimenopause, and azathioprine. We discussed the possibility of switching to alternative immunotherapy such as methotrexate or rituximab. There are no immunotherapies with FDA approval for treatment of chronic relapsing inflammatory optic neuropathy. We discussed potential side effects and CP concerns related to both these medications. She was provided with patient education material for both methotrexate and rituximab. Migraine headaches continue to be well-controlled with migraine rescue treatment only, Nurtec. Monitoring Plan: Continue with CBC with differential and LFTs to every 3 months (next in October 2023) Continue to follow-up with Dr. Chang, [facility] [place] Treatment Plan: Continue on azathioprine 100 mg daily Continue on Nurtec for migraine rescue Follow-Up: 6 months Thank you for allowing us to participate in [facility]. If you have questions or concerns please do not hesitate to call our clinic at [phone]. Miguel Angel Blackman III, MD Diesel Engineer [facility] Department of Neurology [facility] [address] P F 9:56 AM 02/03/2024 documented in this encounter Plan of Treatment Upcoming Encounters Date Type Department Care Team (Late st Contact Info) Description 06/16/2024 8:40 AM EST Appointment Mammography/[place] [address] Radha Fernandez MD [address] [place] [address] 08/10/2024 9:30 AM EDT [place] [address] Miguel Anegl Blackman III, MD [facility] [place] [address] documented as of this encounter Visit Diagnoses Diagnosis Chronic relapsing inflammatory optic neuropathy Encounter for monitoring azathioprine therapy documented in this encounter Care Teams Unclaimed Property Officer Relationship Specialty Start Date End Date Curtis Jiang MD [address] [place] [address] PCP - General Family Medicine 01/19/23 documented as of this encounter
--- OUTSIDE RECORDS SUMMARY | 2024-04-18 16:35 | XMS_ITS | Encounter Summary ---
Author Organization [facility] [place] [address] Care Team Providers Care Pipe Processor Name Role Phone Curtis Jiang MD Primary Care Provider Encounter Details Date Type Department Care Team (Latest Contact Info) Description 03/25/2024 External [place] [phone] Bee Cruz, BACK END ARCHITECT Chronic relapsing inflammatory optic neuropathy Social History [...] 06/16/2024 8:40 AM EST Appointment Mammography/[place] [address] Radha Fernandez MD [address] [address] 08/10/2024 9:30 AM EDT [place] [address] Miguel Angel Blackman III, MD [facility] [place] [address] documented as of this encounter Procedures Procedure Name Priority Date/Time Associated Diagnosis Comments CBC (WITH DIFF) Routine 03/21/2024 8:40 AM [...] neuropathy documented in this encounter Care Teams Pipe Processor Relationship Specialty Start Date End Date Curtis Jiang MD [address] [place] [address] PCP - General Family Medicine 01/19/23 documented as of this encounter
--- OUTSIDE RECORDS SUMMARY | 2024-04-18 16:36 | XMS_ITS | Encounter Summary ---
Author Organization [facility] [place] [address] Care Team Providers Care Bus Washer Name Role Phone Unavailable Primary Care Provider Unavailabl e Encounter Details Date Type Department Care Team (Latest Contact Info) Description 04/23/2022 Travel Social History Tobacco Use Types Packs/Day Years Used Date Smoking Tobacco: Never Assessed Sex and Gender Information Value Date Recorded Sex Assigned at Not on file Gender Identity Not on file Sexual Orientation Not on file documented as of this encounter Plan of Treatment Upcoming Encounters Date Type Department Care Team (Late st Contact Info) Description 06/16/2024 8:40 AM EST Appointment Mammography/[place] [address] Radha Fernandez MD [address] [address] 08/10/2024 9:30 AM EDT Office [place] [address] Miguel Angel Blackman III, MD [facility] [place] [address] documented as of this encounter Visit Diagnoses Not on filedocumented in this encounter
--- OUTSIDE RECORDS SUMMARY | 2024-04-18 16:36 | XMS_ITS | Encounter Summary ---
Author Organization [facility] Address [facility] [place] [address] Care Team Providers Care Clam Picker Name Role Phone Unavailable Primary Care Provider Unavailabl e Encounter Details Date Type Department Care Team (Latest Contact Info) Description 08/02/2022 Travel Social History Tobacco Use Types Packs/Day Years Used Date Smoking Tobacco: Never Smokeless Tobacco: Never Alcohol Use Standard Drinks/Week Comments Yes 0 (1 standard drink = 0.6 oz pur e alcohol) occassionally Sex and Gender Information Value Date Recorded Sex Assigned at Not on file Gender Identity Not on file Sexual Orientation Not on file documented as of this encounter Plan of Treatment Upcoming Encounters Date Type Department Care Team (Late st Contact Info) Description 06/16/2024 8:40 AM EST Appointment Mammography/DXA at [place] [phone] Radha Fernandez MD [address] [place] [address] 08/10/2024 9:30 AM EDT Office [place] [phone] Miguel Angel Blackman III, MD [facility] [place] [address] documented as of this encounter Visit Diagnoses Not on filedocumented in this encounter
--- OUTSIDE RECORDS SUMMARY | 2024-04-18 16:36 | XMS_ITS | Encounter Summary ---
Author Organization [facility] [place] [address] Care Team Providers Care Chocolate Production Machine Operator Name Role Phone Unavailable Primary Care Provider Unavailabl e Encounter Details Date Type Department Care Team (Latest Contact Info) Description 07/08/2022 Travel Social History Tobacco Use Types Packs/Day [...] 06/16/2024 8:40 AM EST Appointment Mammography[place] [address] Radha Fernandez MD [address] [address] 08/10/2024 9:30 AM EDT [place] [address] Miguel Angel Blackman III, MD [facility] [place] [address] documented as of this encounter Visit Diagnoses Not on filedocumented in this encounter
--- OUTSIDE RECORDS SUMMARY | 2024-04-18 16:36 | XMS_ITS | Encounter Summary ---
Author Organization [facility] Address [facility] [place] [address] Care Team Providers Care Framing Mill Supervisor Name Role Phone Becca Lewis MD Primary Care Provider [phone] Reason for Referral * Consultation (Routine) - Closed Specialty Diagnoses / Procedures Referred By Contbobby t Referred To Contact Ophthalmology Diagnoses Chronic relapsing inflammatory optic neuropathy Miguel Angel Blackman III, MD [facility] [place] [address] Chela Chang MD [facility] [place] [address] Referral ID Status Reason Start Date Expiration Date V isits Requested Visits Authorized [id number] Closed Consult, Test & Treat 10/30/2022 10/30/2023 1 1 Encounter Details Date Type Department Care Team (Late st Contact Info) Description 10/30/2022 3:30 PM EDT [place] [address] Miguel Angel Blackman III, MD [facility] [place] [address] Chronic relapsing inflammatory optic neuropathy Social History [...] Sign Reading Time Taken Comments Blood Pressure 112/74 10/30/2022 3:12 PM EDT Pulse 93 10/30/2022 3:12 PM EDT Temperature - - Respiratory Rate - - Oxygen Saturation - - Inhaled Oxygen Concentration - - Weight 59.9 kg (132 lb) 10/30/2022 3:12 PM EDT Height 166.4 cm (5' 5.5) 10/30/2022 3:12 PM EDT Body Mass Index 21.63 10/30/2022 3:12 PM EDT documented in this encounter Progress Notes * Valerio Garcia MD - 10/30/2022 3:30 PM EDT [facility] Follow-up appointment Dear Josh Reddy MD and Rose Corado DO, I saw Pradeep Brady in clinic today in follow-up for recurrent optic neuritis and concern for MS. She was accompanied by her at today's visit. Below is my follow-up note with impression and plan. Please do not hesitate to call with any questions. History of Presenting Illness: Pradeep Brady is a 47 y.o. woman with reported history of presumed bilateral optic neuritis previously followed by Dr. Taylor at [facility] in [place], [place] (established care in 03/2020, last appointment 02/2021). She has had repeated episodes of possible optic neuritis starting in . She has repeated episodes from [id number] associated with left eye vision changes, pain, and joint pain/fatigue. In 2018 and 2020, she reports right eye vision changes and associated pain. Initial treatment in 2012 with prednisone lead to improvement of her symptoms. MRI brain and orbit back in 2019 revealed no abnormality. She had extensive negative diagnostic evaluation including NMO and MOG Ab evaluation x 2, lumbar puncture with CSF evaluation with normal opening pressure, normal cell count, protein, glucose, negative oligoclonal bands, negative CSF TONI, negative SHITAL, ANCA, ESR, CRP, antiphospholipid antibodies. She was recently seen by [facility] rheumatology for bilateral knee pain and workup for autoimmune/inflammatory causes was negative. 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 Patient recently had visual field testing performed which revealed stable visual field deficits in her right peripheral visual field. She has left lower temporal quadrant scotoma which was found to have deeper loss compared to previous. Today, Pradeep does not report any acute changes in her vision. She does say that over the past yearshe seems to notice her visual loss more often, but does not believe the area of visual loss is much different. She denies any history of additional neurological symptoms of subacute onset lasting more than 24 hours including: double vision, hemiface/arm/leg/hemibody numbness or weakness, or bilateral LE numbness or weakness. Current Medications: reviewed and updated in EMR Physical Examination Patient Vitals for the past 24 hrs: Pulse BP 10/30/22 1512 93 112/74 She was alert and oriented to person, place, and time with normal language, attention and concentration, recent and remote memory, praxis, and intellectual function. Mood was euthymic. Affect was congruent. Visual acuity was 20/25-1 OD, 20/20 OS with contacts. Important to note that she recently got a newprescription in glasses but did not have them with her today. No red desaturation was noted bilaterally. Visual field deficit in OS inferior and temporal quadrant. OD has visual field deficit in peripheral temporal field, described as splintered loss in her vision. Pupils were 4 mm and briskly react ann OU to 2 mm without a relative afferent pupillary defect. Funduscopic examination notable for optic disc pallor worse on the L than R. EOM's were intact without nystagmus. Facial sensation was normal. Muscles of facial expression moved normally. Hearing was normal. There was no dysarthria. Motor tone was normal. There was no pronator drift. 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 Vibratory sensation was intact at the toes bilaterally. No dysmetria with [id number] testing bilaterally. Finger tapping was rapid and accurate bilaterally. Standard gait was normal. She was able to tandem walk. REVIEW OF IMAGING STUDIES: report only MRI brain and orbit: without and with contrast Date: 08/03/2022 - FINDINGS: BRAIN: BRAIN PARENCHYMA: There is no diffusion weighted or susceptibility weighted signal abnormality.. No intracranial mass effect. There is no abnormal signal intensity or enhancement of the brain parenchyma . VENTRICLES/EXTRA-AXIAL SPACES: No hydrocephalus or extra-axial fluid collections. There is no pathologic meningeal signal or enhancement. FLOW VOIDS: Dominant/central intracranial vascular structures appear patent with maintained flow voids on T2-weighted sequence. There is no suggestion of significant transverse dural venous sinus stenosis. There is mild concavity/depression of superior margin of the adenohypophysis, without empty sella appearance. EXTRACRANIAL STRUCTURES: There are no osseous or extracranial soft tissue lesions identified. No evidence of significant inflammatory sinonasal or mastoid disease. Minimal mucosal thickening noted of the maxillary antra. ORBITS: SOFT TISSUES: There is no abnormality of the orbital soft tissues, including the globes. There is no abnormal signal or enhancement identified involving the optic nerve sheath complex. There is mild prominence and tortuosity of the optic nerve sheath, potentially of no significance. Optic chiasm and tracts are normal. OSSEOUS STRUCTURES AND CAVERNOUS SINUSES: Normal. CRANIAL NERVES AND BRAINSTEM: Normal. No abnormal enhancement. IMPRESSION 1. Mild tortuosity and prominence of the optic nerve sheath and subarachnoid space around the optic nerves, potentially of no clinical significance. 2. There is no abnormal signal or enhancement of the optic nerves, chiasm or optic tracts. 3. Normal MRI of the brain. CT Chest wwo contrast - Date: 09/16/2022 FINDINGS: Pulmonary parenchyma: No lung nodules. Airways: No central endobronchial abnormality. Pleura: No effusion. Lymph nodes: No mediastinal or hilar lymphadenopathy. Heart and vasculature: Normal size of the heart. No significant pericardial effusion. Normal caliber of the thoracic aorta. Upper abdomen: No significant findings. Skeletal structures: No aggressive bone lesions. IMPRESSION No findings in the chest to suggest sarcoidosis Assessment: No diagnosis found. Pradeep Brady is a 47 y.o. woman with recurrent episodes of VF deficit with associated red desaturation and evidence of optic nerve injury. She has had extensive diagnostic evaluation previously without etiology (see above). Given CT chest revealing no signs of sarcoidosis, this is likely due to chronic relapsing inflammatory optic neuropathy (CRION). We discussed that there are no FDA approved therapies for this condition. We reviewed treatment with CellCept (mycophenolate) with plan for treatment of at least 1 to 2 years with frequent repeat ophthalmologically evaluation to look for vision stability. She also has migraine headaches without aura, bordering on chronic migraine. She does not have any significant sleep disturbance, blood pressures run low, and she has no depression or anxiety. She attempted a trial of Effexor for preventative management of her migraines, but she discontinued due tofatigue issues. She is happy to continue with Nurtec as needed for acute migraine episodes and doesnot want to pursue preventative migraine treatment for now. Treatment Plan: CellCept 500 mg two times daily with plans to titrate to 1000 mg two times daily. Will refer to neuro-ophthalmology for close follow-up Migraine headaches: Continue Nurtec prn for acute headaches Follow-Up: 2-3 months via telemedicine Thank you for allowing us to participate in [facility]. If you have questions or concerns please do not hesitate to call our clinic at [phone]. Valerio Garcia MD PGY-1 Ophthalmology 3:19 PM 10/30/2022 * Miguel Angel Blackman III, MD - 10/30/2022 3:30 PM EDT Neurology Attending Attestation I saw and evaluated Pradeep Brady with Dr. Garcia, resident. I have reviewed the medical recordsand the patient's history during the visit and I agree with the details as written. My physical examination confirms the findings. The assessment and plan were formulated in discussion with me at the time of the visit and I agree with them as documented. Impression: probable CRION, with possible worsening based on recent worsening visual field testing with local optometry We discussed treatment with CellCept. We discussed the lack of FDA approval for this indication andrelative limited efficacy and literature. Potential safety concerns including aplastic anemia, immunosuppression, transaminitis, GI side effects. She was in agreement with starting treatment. I referred her to Dr. Chang, [facility] neuro-ophthalmology, to establish care. Miguel Angel Blackman III, MD Data Officer Department of Neurology [facility] [address] P F 7:58 AM 11/03/2022 documented in this encounter Plan of Treatment Upcoming Encounters Date Type Department Care Team (Late st Contact Info) Description 06/16/2024 8:40 AM EST Appointment Mammography/[place] [address] Radha Fernandez MD [address] [place] [address] 08/10/2024 9:30 AM EDT [place] [address] Miguel Angel Blackman III, MD [facility] [place] [address] Scheduled Referrals Name Type Priority Associated Diagnoses Orde r Schedule Referral to Ophthalmology Outpatient Referral Routine Chronic relapsing inflammatory optic neuropathy Ordered: 10/30/2022 documented as of this encounter Results * (ABNORMAL) Hepatic Function Panel (05/22/2023 9:10 [...] EXTERNAL FACILITY * (ABNORMAL) CBC (with Diff) (05/22/2023 9:10 [...] MD HEMATOLOGY ORDERA BLES Performing Organization Address [facility] de Phone Number EXTERNAL FACILITY * (ABNORMAL) Hepatic Function Panel (04/20/2023 4:33 PM EST) Protein, Total 7.6 EXTER NAL FACILITY Albumin 4.7 EXTERNAL FACILITY Bilirubin, Total 1.2(H) EXTERNAL FACILITY Bilirubin, Direct 0.3(H) EXTERNAL FACILITY Blood 04/20/2023 4:33 PM EST Miguel Angel Blackman III, MD CHEMISTRY ORDERAB LES Performing Organization Address [facility] Co de Phone Number EXTERNAL FACILITY * (ABNORMAL) CBC (with Diff) [...] EXTERNAL FACILITY * (ABNORMAL) Hepatic Function Panel (03/20/2023 8:02 AM EST) Protein, Total 7.1 EXTER NAL FACILITY Albumin 4.0 EXTERNAL FACILITY Bilirubin, Total 1.2(H) EXT ERNAL FACILITY Bilirubin, Direct 0.3(H) EX TERNAL FACILITY Alkaline Phosphatase 58 EXTERNAL FACILITY Aspartate Aminotransferase 32 EXTERNAL FACILITY Alanine Aminotransferase 37 EXTERNAL FACILITY Blood 03/20/2023 8:02 AM EST Miguel Angel Blackman III, MD CHEMISTRY ORDERAB LES EXTERNAL FACILITY * (ABNORMAL) CBC (with Diff) (03/20/2023 8:02 AM EST) White Blood Cell 3.80(L) EXT ERNAL FACILITY Red Blood Cell 4.63 EXTER NAL FACILITY Hemoglobin 13.5 EXTERNAL FACILITY Hematocrit 41.3 EXTERNAL FACILITY Mean Cell Volume 89.0 EXT ERNAL FACILITY Mean Cell Hemoglobin 29.2 EXTERNAL FACILITY Mean Cell Hemoglobin Concentration 32.7 EXTERNAL FACILITY RDW coefficient of variation 13.3 EXTERNAL FACILITY Platelet 198 EXTERNAL FACILITY Mean Platelet Volume 9.5 EXTERNAL FACILITY Neutrophil % 64.2 EXTERNA L FACILITY Lymph % 24.2 EXTERNAL FACILITY Monocyte % 8.9 EXTERNAL FACILITY Eosinophil Manual 1.6 EX TERNAL FACILITY Basophil % 0.8 EXTERNAL FACILITY Immature Gran % 0.3 EXTE RNAL FACILITY Neutrophil Absolute (ANC) - Automated 2.44 EXTERNAL FACILITY Lymph Absolute Manual 0.92(L) EXTERNAL FACILITY Monocyte Abs 0.34 EXTERNA L FACILITY Eos Absolute Manual 0.06 EXTERNAL FACILITY Baso Absolute Manual 0.03 EXTERNAL FACILITY Blood 03/20/2023 8:02 AM EST Miguel Angel Blackman III, MD HEMATOLOGY ORDERA BLES Performing Organization Address City/State/[facility] Co de Phone Number EXTERNAL FACILITY * Hepatic Function Panel (03/09/2023 11:07 AM EST) Protein, Total 6.8 6.1 - 8.0 g/dL [facility] Albumin 4.7 3.2 - 5.2 g/dL [facility] Aspartate Aminotransferase 24 0 - 30 unit/L [facility] Alanine Aminotransferase 22 0 - 30 unit/L [facility] Alkaline Phosphatase 56 35 - 105 unit/L [facility] Bilirubin, Total 0.7 0.2 - 1.3 mg/dL [facility] Bilirubin, Direct 0.2 0.0 - 0.3 mg/dL [facility] Blood 03/09/2023 11:0 7 AM EST 03/09/2023 11:16 AM EST Narrative Resulting Agency Comment Spec In Lab Miguel Angel Blackman III, MD CHEMISTRY ORDERAB LES Performing Organization Address City/[facility]/ZIP Co de Phone Number [facility] [place] [address] documented in this encounter Visit Diagnoses Diagnosis Chronic relapsing inflammatory optic neuropathy documented in this encounter Care Teams Framing Mill Supervisor Relationship Specialty Start Date End Date Becca Lewis MD PCP - General Family Medicine 09/09/22 01/18/23 documented as of this encounter
--- OUTSIDE RECORDS SUMMARY | 2024-04-18 16:36 | XMS_ITS | Encounter Summary ---
Author Organization [facility] [place] [address] Care Team Providers Care Avp Name Role Phone Unavailable Primary Care Provider Unavailabl e Encounter Details Date Type Department Care Team (Late st Contact Info) Description 01/31/2022 [place] [address] Pauline Haddad MA Social History Tobacco Use Types Packs/Day Years Used Date Smoking Tobacco: Never Assessed Sex and Gender Information Value Date Recorded Sex Assigned at Not on file Gender Identity Not on file Sexual Orientation Not on file documented as of this encounter Miscellaneous Notes * Telephone Encounter - Pauline Haddad RMA - 01/31/2022 10:39 AM EDT Called patient for pre-charting, no answer. DUSTIN MELENDEZ documented in this encounter Plan of Treatment Upcoming Encounters Date Type Department Care Team (Late st Contact Info) Description 06/16/2024 8:40 AM EST Appointment Mammography/[place] [address] Radha Fernandez MD [address] [place] [address] 08/10/2024 9:30 AM EDT [place] [address] Miguel Angel Blackman III, MD [facility] [place] [address] documented as of this encounter Visit Diagnoses Not on filedocumented in this encounter
--- OUTSIDE RECORDS SUMMARY | 2024-04-18 16:36 | XMS_ITS | Encounter Summary ---
Author Organization [facility] [place] [address] Care Team Providers Care Public Administration Professor Name Role Phone Becca Lewis MD Primary Care Provider [phone] Reason for Visit * Reason Onset Date Comments Prior Authorization 09/16/[address] [facility] Encounter Details Date Type Department Care Team (Late st Contact Info) Description 09/16/2022 Telephone [place] [address] Miguel Angel Blackman III, MD [facility] [place] [address] Prior Authorization ([facility]) Social History Tobacco Use Types Packs/Day Years [...] Miscellaneous Notes * Telephone Encounter - Annamarie Kuo RN - 09/17/2022 10:28 AM EDT Per PA staff, PA request has been submitted to pt's insurance. * Telephone Encounter - Annamarie Kuo RN - 09/16/2022 4:43 PM EDT Pt phoned and left message on triage line. Pt states that she needs PA for her Nurtec. PA request forwarded to PA team. documented in this encounter Plan of Treatment Upcoming Encounters Date Type Department Care Team (Late st Contact Info) Description 06/16/2024 8:40 AM EST Appointment Mammography/[place] [phone] Radha Fernandez MD [address] [place] [address] 08/10/2024 9:30 AM EDT Office [place] [phone] Miguel Angel Blackman III, MD [facility] [place] [address] documented as of this encounter Visit Diagnoses Not on filedocumented in this encounter Care Teams Public Administration Professor Relationship Specialty Start Date End Date Becca Lewis MD PCP - General Family Medicine 09/09/22 01/18/23 documented as of this encounter
--- OUTSIDE RECORDS SUMMARY | 2024-04-18 16:36 | XMS_ITS | Encounter Summary ---
Author Organization [facility] Address [facility] [place] [address] Care Team Providers Care Specialized Language Instructor Name Role Phone Unavailable Primary Care Provider Unavailabl e Encounter Details Date Type Department Care Team (Latest Contact Info) Description 07/09/2022 Travel Social History Tobacco Use Types Packs/Day [...] 06/16/2024 8:40 AM EST Appointment Mammography/DXA at [place] [phone] Radha Fernandez MD [address] [place] [address] 08/10/2024 9:30 AM EDT Office [place] [phone] Miguel Angel Blackman III, MD [facility] [place] [address] documented as of this encounter Visit Diagnoses Not on filedocumented in this encounter
--- OUTSIDE RECORDS SUMMARY | 2024-04-18 16:36 | XMS_ITS | Encounter Summary ---
Author Organization [facility] Address [facility] [place] [address] Care Team Providers Care Linux Unix Engineer Name Role Phone Becca Lewis MD Primary Care Provider [phone] Encounter Details Date Type Department Care Team (Latest Contact Info) Description 09/16/2022 Travel Social History Tobacco Use Types Packs/Day [...] 06/16/2024 8:40 AM EST Appointment Mammography/[place] [phone] Radha Fernandez MD [address] [place] [address] 08/10/2024 9:30 AM EDT [place] [phone] Miguel Angel Blackman III, MD [facility] [place] [address] documented as of this encounter Visit Diagnoses Not on filedocumented in this encounter Care Teams Linux Unix Engineer Relationship Specialty Start Date End Date Becca Lewis MD PCP - General Family Medicine 09/09/22 01/18/23 documented as of this encounter
--- OUTSIDE RECORDS SUMMARY | 2024-04-18 16:36 | XMS_ITS | Encounter Summary ---
Author Organization [facility] Address [facility] [place] [address] Care Team Providers Care Full Roll Inspector Name Role Phone Becca Lewis MD Primary Care Provider [phone] Encounter Details Date Type Department Care Team (Latest Contact Info) Description 10/27/2022 Travel Social History Tobacco Use Types Packs/Day [...] 06/16/2024 8:40 AM EST Appointment Mammography[place] [phone] Radha Fernandez MD [address] [place] [address] 08/10/2024 9:30 AM EDT [place] [phone] Miguel Angel Blackman III, MD [facility] [place] [place] [address] documented as of this encounter Visit Diagnoses Not on filedocumented in this encounter Care Teams Full Roll Inspector Relationship Specialty Start Date End Date Becca Lewis MD PCP - General Family Medicine 09/09/22 01/18/23 documented as of this encounter
--- OUTSIDE RECORDS SUMMARY | 2024-04-18 16:36 | XMS_ITS | Encounter Summary ---
Author Organization [facility] [place] [address] Care Team Providers Care Slunk Skinner Name Role Phone Unavailable Primary Care Provider Unavailabl e Reason for Referral * Diagnostic Test (Routine) - Closed Specialty Diagnoses / Procedures Referred By Bernardo vizcaino Referred To Contact Cardiology Diagnoses Tachycardia Procedures Echocardiogram Transthoracic Josh Larose MD [facility] [place] [address] [facility] [place] [address] Referral ID Status Reason Start Date Expiration Date V isits Requested Visits Authorized [id number] Closed Specialty Service Requested 04/15/2022 06/13/2022 1 1 Reason for Visit * Diagnostic Test (Routine) - Closed Specialty Diagnoses / Procedures Referred By Bernardo vizcaino Referred To Contact Cardiology Diagnoses Tachycardia Procedures Echocardiogram Transthoracic Josh Larose MD [facility] [place] [address] [facility] [place] [address] Referral ID Status Reason Start Date Expiration Date V isits Requested Visits Authorized [id number] Closed Specialty Service Requested 04/15/2022 06/13/2022 1 1 Encounter Details Date Type Department Care Team (Late st Contact Info) Description 04/24/2022 8:38 AM EST - 04/24/2022 9:30 AM EST Hospital Encounter Non-Invasive [place] [phone] Ed Corado, [facility] [place] [address] Tachycardia Discharge Disposition: Home Social History Tobacco Use Types Packs/Day Years Used Date Smoking Tobacco: Never Assessed Sex and Gender Information Value Date Recorded Sex Assigned at Not on file Gender Identity Not on file Sexual Orientation Not on file documented as of this encounter Medications at Time of Discharge Medication Sig Dispensed Refills Start Date End Date methylphenidate (CONCERTA) 54 mg Tablet Extended Rel 24 hr Take 54 mg by mouth every morning. rimegepant (Nurtec ODT) 75 mg disintegrating tablet Nurtec ODT 75 mg disintegrating tablet TAKE ONE TABELET BY MOUTH ONCE DAILY NEEDED FOR MIGRAINE 02/09/2020 09/09/2022 documented as of this encounter Plan of Treatment Upcoming Encounters Date Type Department Care Team (Late st Contact Info) Description 06/16/2024 8:40 AM EST Appointment Mammography/[place] [address] Radha Fernandez MD [address] [place] [id number] 08/10/2024 9:30 AM EDT [place] [address] Miguel Angel Blackman III, MD [facility] [place] [address] documented as of this encounter Procedures Procedure Name Priority Date/Time Associated Diagnosis Comments ECHO COMPLETE Routine 04/24/2022 9:34 AM EST Tachycardia documented in this encounter Results * ECHO COMPLETE (04/24/2022 9:34 AM EST) EF 61 HEARTLAB SYSTEM Anatomical Region Laterality Modality Cardiac Other 04/24/2022 8:58 AM EST Narrative 04/24/2022 10:31 AM EST ? Echocardiogram Report Name: CAMELIA BRADY ?Study Date: 04/24/2022 08:58 AMBP: 117/75 mmHg ? Patient Location: 4A ? HR: 101 : 1975 ? Height: 165 cm ? Account: [id number] Age: 46 yrs ? Weight: 57 kg Gender: Female ?BSA: 1.6 m2 Ordering Physician: ED CORADO Referring Physician: JOSH LAROSE Performed By: Stanley Carrillo RDCS Reason For Study: Tachycardia Interpreting Fellow: Kaila Mejia. Exam Location: [facility]. Interpretation Summary -Biventricular size and systolic function are normal. LVEF is 61% by Patel's biplane method. There are no segmental wall motion abnormalities. -There is no valve disease. -There is no prior echocardiogram available for comparison. See report for additional findings. Procedure Complete-[id number]. Satisfactory quality. Left Ventricle Left ventricle is of normal size. Wall thickness is normal. There is no ventricular septal defect. Left ventricular systolic function is normal. The left ventricular ejection fraction is 61% by Patel's biplane. There are no segmental wall motion abnormalities. Right Ventricle The right ventricle is of normal size. Right ventricular systolic function is normal. Left Atrium The left atrium is normal. There is no evidence for a patent foramen ovale. Right Atrium The right atrium is normal. Aortic Valve The aortic valve is structurally normal. There is no aortic stenosis. There is no aortic regurgitation. Mitral Valve The mitral valve is structurally and functionally normal. There is trace mitral regurgitation. Tricuspid Valve The tricuspid valve is structurally normal. There is trace tricuspid regurgitation. Pulmonic Valve The pulmonic valve appears to be structurally and functionally normal. Great Arteries The aortic root is of normal size. No abnormalities are identified. The ascending aorta is not well visualized. Venous Inferior vena cava is normal in size. Inferior vena cava collapse greater than 50% with respiration. Pericardium/Pleural The pericardium appears normal. Hemodynamics The estimated right atrial pressure is 3mmHg. Pulmonary artery hypertension could not be assessed due to inadequate tricuspid regurgitation jet. Left ventricular diastolic function is normal. Left ventricular filling pressure is normal. Ejection Fraction ?2D Measurements ? Volumes EF(MOD-bp): 60.7 % ?IVSd: 0.85 cm ?LAV(MOD- bp) Indexed: ?LVIDd: 3.9 cm ?LVIDs: 2.7 cm ?20.6 ml/m2 ?LVPWd: 0.45 cm ? RA A4Cs_phl: 9.6 cm2 ?LV mass(C)d: 68.6 grams ?EDV (MOD-bp) Index: 44.8 ? ESV (MOD-bp) Index: 17.6 ?LV mass(C)dI: 42.4 grams/m2 ?SV(LVOT): 41.1 ml ?Ao root diam: 3.0 cm ?Ao root diam index: 1.9 ?SI(LVOT): 25.4 ml/m2 ?LVOT diam: 1.8 cm Doppler LV V1 VTI: 17.0 cm Ao V2 VTI: 21.0 cm Ao Max: 119.9 cm/sec Ao valve max: 5.8 mmHg Ao valve mean: 3.0 mmHg MV E max dallas: 62.5 cm/sec MV A max d[place]: 63.2 cm/sec MV E/A: 0.99 MV dec time: 0.24 sec Lat Peak E' [place]: 18.1 cm/sec E/ e' (lat): 3.4 Med Peak E' [place]: 13.7 cm/sec E/e' (med): 4.6 E/e' Average: 4.0 CAMELIA(I,D): 2.0 cm2 Dimensionless index Aov: 0.81 I ?WMSI = 1.00 ? % Normal = 100 ?Segments ??Size X - Cannot ?? 1 - Normal ?? 2 - ? 3 - Akinetic 4 - ?1-2 ? small Interpret ? Hypokinetic ?Dyskinetic ?? 3-5 ? moderate 5 - ? 6-14 ?large Aneurysmal ?15-16 ?? diffuse Procedure Note Tapan Lozada MD - 04/24/2022 Echocardiogram Report Name: CAMELIA BRADY Study Date: 308:58 AMBP: 117/75 mmHg Patient Location: HR: 101 : 1975 Height: 165 cm Account: [id number] Age: 46 yrs Weight: 57 kg Gender: Female BSA: 1.6 m2 Ordering Physician: ED CORADO Referring Physician: JOSH LAROSE Performed By: Stanley Carrillo RDCS Reason For Study: Tachycardia Interpreting Fellow: Kaila Mejia. Exam Location: [facility]. Interpretation Summary -Biventricular size and systolic function are normal. LVEF is 61% bySimpson's biplane method. There are no segmental wall motion abnormalities. -There is no valve disease. -There is no prior echocardiogram available for comparison. See reportfor additional findings. Procedure Complete-[id number]. Satisfactory quality. Left Ventricle Left ventricle is of normal size. Wall thickness is normal. There is no ventricular septal defect. Left ventricular systolic function is normal.The left ventricular ejection fraction is 61% by Patel's biplane. There are nosegmental wall motion abnormalities. Right Ventricle The right ventricle is of normal size. Right ventricular systolic functionis normal. Left Atrium The left atrium is normal. There is no evidence for a patent foramenovale. Right Atrium The right atrium is normal. Aortic Valve The aortic valve is structurally normal. There is no aortic stenosis.There is no aortic regurgitation. Mitral Valve The mitral valve is structurally and functionally normal. There is tracemitral regurgitation. Tricuspid Valve The tricuspid valve is structurally normal. There is trace tricuspid regurgitation. Pulmonic Valve The pulmonic valve appears to be structurally and functionally normal. Great Arteries The aortic root is of normal size. No abnormalities are identified. Theascending aorta is not well visualized. Venous Inferior vena cava is normal in size. Inferior vena cava collapse greaterthan 50% with respiration. Pericardium/Pleural The pericardium appears normal. Hemodynamics The estimated right atrial pressure is 3mmHg. Pulmonary arteryhypertension could not be assessed due to inadequate tricuspid regurgitation jet. Leftventricular diastolic function is normal. Left ventricular filling pressure isnormal. Ejection Fraction 2D Measurements Volumes EF(MOD-bp): 60.7 % IVSd: 0.85 cm LAV(MOD-bp)Indexed: LVIDd: 3.9 cm LVIDs: 2.7 cm 20.6 ml/m2 LVPWd: 0.45 cm RA A4Cs_phl: 9.6cm2 LV mass(C)d: 68.6 grams EDV (MOD-bp)Index: 44.8 ESV (MOD-bp)Index: 17.6 LV mass(C)dI: 42.4 grams/m2 SV(LVOT): 41.1ml Ao root diam: 3.0 cm Ao root diam index: 1.9 SI(LVOT): 25.4ml/m2 LVOT diam: 1.8 cm Doppler LV V1 VTI: 17.0 cm Ao V2 VTI: 21.0 cm Ao Max: 119.9 cm/sec Ao valve max: 5.8 mmHg Ao valve mean: 3.0 mmHg MV E max dallas: 62.5 cm/sec MV A max d[place]: 63.2 cm/sec MV E/A: 0.99 MV dec time: 0.24 sec Lat Peak E' [place]: 18.1 cm/sec E/ e' (lat): 3.4 Med Peak E' [place]: 13.7 cm/sec E/e' (med): 4.6 E/e' Average: 4.0 CAMELIA(I,D): 2.0 cm2 Dimensionless index Aov: 0.81 I WMSI = 1.00 % Normal = 100 SegmentsSize X - Cannot 1 - Normal 2 - 3 - Akinetic 4 - 1-2small Interpret Hypokinetic Dyskinetic 3-5moderate 5 - 6-14large Aneurysmal 15-16diffuse Ed Corado DO ECHO ORDERABLES documented in this encounter Visit Diagnoses Diagnosis Tachycardia Tachycardia, unspecified documented in this encounter
--- OUTSIDE RECORDS SUMMARY | 2024-04-18 16:36 | XMS_ITS | Encounter Summary ---
Author Organization [facility] [place] [address] Care Team Providers Care Entertainment Manager Name Role Phone Becca Lewis MD Primary Care Provider [phone] Reason for Visit * Reason Onset Date Comments Prior Authorization 09/17/2022 rimegepant ( Nurtec ODT) 75 mg disintegrating tablet Encounter Details Date Type Department Care Team (Late st Contact Info) Description 09/17/2022 [facility]phone [facility] [place] [address] Bee Cruz CMA Prior Authorization (rimegepant (Nurtec ODT) 75 mg disintegrating tablet) Social History Tobacco Use Types Packs/Day Years [...] encounter Miscellaneous Notes * Telephone Encounter - Bee Cruz CMA - 09/17/2022 2:26 PM EDTSummary: Approval - Allison Images from the original note were not included. Submitted Date: Submitted Date: 09/17/2022 Next Review Date: Next Review Date: 12/18/2022 MENG Outcome: PA Approval Medication Prior Authorization Approval Approved: Nurtec 75MG dispersible tablets Start Date: 09/17/2022 End Date: 12/18/2022 Case/Reference #: [id number] Approval Letter will be scanned into media once received. * Telephone Encounter - oRsa Morales - 09/17/2022 8:47 AM EDT Helena from [employer] PA dept calling. States insurance will cover quantity of 8. She asks if she should push through quantity of 10 for review. * Telephone Encounter - Bee Cruz CMA - 09/17/2022 7:06 AM EDTSummary: Submitted - [facility] PA Submitted Submitted Date: Submitted Date: 09/17/2022 Medication Prior Authorization Patient: Pradeep Brady Patient : 1975 Insurance Company: [employer] Sent via: Cover My Meds [place]: [id number] Physician: Miguel Angel Blackman III, MD Medication Requested: rimegepant (Nurtec ODT) 75 mg disintegrating tablet Frequency/Sig: Take 1 tablet by mouth as needed for up to 30 days. Disp: 10 Refills: 5 Currently taking: yes If yes, how lon08/2019 Diagnosis for this medication: Migraine without aura and without status migrainosus, not intractable (G43.009) Prior medications trialed in this patient: Medication: venlafaxine XR (Effexor-XR) 37.5 mg ER 24 hr capsule Approx Dates: current Outcome/Adverse Reactions: Inadequate response Additional Notes: documented in this encounter Plan of Treatment Upcoming Encounters Date Type Department Care Team (Late st Contact Info) Description 06/16/2024 8:40 AM EST Appointment Mammography/[place] [address] Radha Fernandez MD [address] [place] [address] 08/10/2024 9:30 AM EDT Office [place] [address] Miguel Angel Blackman III, MD [facility] [place] [address] documented as of this encounter Visit Diagnoses Not on filedocumented in this encounter Care Teams Entertainment Manager Relationship Specialty Start Date End Date Becca Lewis MD PCP - General Family Medicine 09/09/22 01/18/23 documented as of this encounter
--- OUTSIDE RECORDS SUMMARY | 2024-04-18 16:36 | XMS_ITS | Encounter Summary ---
Author Organization [facility] Address [facility] [place] [address] Care Team Providers Care Air Traffic Control Specialist Center Name Role Phone Curtis Jiang MD Primary Care Provider [phone] Encounter Details Date Type Department Care Team (Latest Contact Info) Description 02/08/2023 Travel Social History Tobacco Use Types Packs/Day [...] 06/16/2024 8:40 AM EST Appointment Mammography[place] [address] Radha Fernandez MD [address] [place], [place] [address] 08/10/2024 9:30 AM EDT [place] [address] Miguel Angel Blackman III, MD [facility] [place] [address] documented as of this encounter Visit Diagnoses Not on filedocumented in this encounter Care Teams [facility] Traffic Control Specialist Center Relationship Specialty Start Date End Date Curtis Jiang MD [address] [place] [address] PCP - General Family Medicine 01/19/23 documented as of this encounter
--- OUTSIDE RECORDS SUMMARY | 2024-04-18 16:36 | XMS_ITS | Encounter Summary ---
Author Organization [facility] chadmami [place] [id number] Care Team Providers Care Quality Control Industrial Engineer Name Role Phone Unavailable Primary Care Provider Unavailabl e Reason for Referral * Diagnostic Test (Routine) - Closed Specialty Diagnoses / Procedures Referred By Bernardo vizcaino Referred To Contact Cardiology Diagnoses Tachycardia Procedures Echocardiogram Transthoracic Keila Reddy MD [facility] [place] [address] [facility] [place] [address] Referral ID Status Reason Start Date Expiration Date V isits Requested Visits Authorized [id number] Closed Specialty Service Requested 04/15/2022 06/13/2022 1 1 * Consultation (Routine) - Closed Specialty Diagnoses / Procedures Referred By Bernardo vizcaino Referred To Contact Neurology Diagnoses Recurrent optic neuritis Keila Reddy MD [facility] [place] [address] Miguel Angel Blackman III, MD [facility] [place] [address] Referral ID Status Reason Start Date Expiration Date V isits Requested Visits Authorized [id number] Closed Consult, Test & Treat 02/03/2022 02/03/2023 1 1 * Consultation (Routine) - Specialty Diagnoses / Procedures Referred By Bernardo vizcaino Referred To Contact Ophthalmology Diagnoses Recurrent optic neuritis Keila Reddy MD [facility] DR RHEUMATOLOGY DEPT [place], [place] [id number] [place] [address] Ophthalmology [address] [place] [address] Referral ID Status Reason Start Date Expiration Date V isits Requested Visits Authorized [id number] Consult, Test & Treat 02/03/2022 02/03/2023 1 1 Reason for Visit * Consultation (Routine) - Closed Specialty Diagnoses / Procedures Referred By Bernardo vizcaino Referred To Contact Rheumatology Diagnoses Examination MULTIPLE EPISODES OF OPTIN NEURITIS W/ GOOD RESPONSE TO STEROIDS, INCONCLUSIVE AUTOIMMUNE WORKUPS IN PAST Ronda Dueñas, OD [address] [place] [address] [facility] Rheumatology [address] [place] [phone] Referral ID Status Reason Start Date Expiration Date V isits Requested Visits Authorized [id number] Closed Consult, Test & Treat PCP Updated and/or Approved 12/04/2021 12/04/2022 6 6 Encounter Details Date Type Department Care Team (Late st Contact Info) Description 02/03/2022 12:30 PM EDT Office [place] [address] Rose Corado DO [facility] [place] [address] Keila Reddy MD Low back pain, non-specific; Recurrent optic neuritis; Tachycardia Social History Tobacco Use Types Packs/Day Years Used Date Smoking Tobacco: Never Assessed Sex and Gender Information Value Date Recorded Sex Assigned at Not on file Gender Identity Not on file Sexual Orientation Not on file documented as of this encounter Last Filed Vital Signs Vital Sign Reading Time Taken Comments Blood Pressure 118/66 02/03/2022 12:25 PM EDT Pulse 113 02/03/2022 12:25 PM EDT Temperature 36.5 ??C (97.7 ??F) 02/03/2022 12:25 PM E DT Respiratory Rate - - Oxygen Saturation 100% 02/03/2022 12:25 PM EDT Inhaled Oxygen Concentration - - Weight 53.1 kg (117 lb) 02/03/2022 12:25 PM EDT Height 165.1 cm (5' 5) 02/03/2022 12:25 PM EDT Body Mass Index 19.47 02/03/2022 12:25 PM EDT documented in this encounter Patient Instructions * Patient Instructions* Keila Reddy MD - 02/03/2022 12:30 PM EDT Please schedule bone density scan as well (by calling hospital cake press operator helper) documented in this encounter Progress Notes * Keila Reddy MD - 02/03/2022 12:30 PM EDT Rheumatology Outpatient Consultation Note Reason for Consult: Pradeep Patel is a 46 y.o. female who we are seeing at the request of Ronda Dueñas for evaluation of patient Pt has had multiple occurrences of optic neuritis with good response to steroids has hadinconclusive autoimmune work-up in the past. HPI: Pradeep Patel is a 46 y.o. female with a PMH significant for ADHD on Concerta who presents today due to concern for autoimmune cause of recurrent optic neuritis. Patient was seen by her cash application clerk in mid October 2021 at which point it was noted that she recently moved to the area from [place]. Note from that visit states that she has a 10+ year history of progressive peripheral vision loss. Extensive neuro-ophthalmic testing has concluded that she has flares ofoptic neuritis, which has been well controlled with 3-day courses of IV steroids. However, she is not always aware when the flares are occurring. She reports most recent MRI and lumbar punctures were2 years ago, and both were unremarkable. She has had multiple inconclusive autoimmune workups, but those were many years ago. Given her responsiveness to steroids, she was referred to rheumatology for consideration of a biologic or other immune therapy. Please see notes by Dr. Taylor of neurology at [facility] (available in Care Everywhere) for a detailed description of prior workup. Today, patient reports that her flares of optic neuritis (characterized by pain in the back of her eyes and peripheral vision loss) appear to be associated with episodes of knee pain/swelling and hair loss. No known infections associated with these flares. Knee pain (also admits that she gets hipand low back pain) can be exacerbated by both periods of inactivity and strenuous exercise, such aslong hikes. Doesn't feel particularly stiff in the morning (more so if she has been laying around for a while in the afternoon). In addition she notes that her toes have turned white and blue/purple (exacerbated by the cold but even occurring when it is warm) for a few years. She is not certain exactly when these started andwhether or not it was before she started her Concerta, which she she states she has been on for around 5 years. Also states that she would get a rash on her face in her early 20s but this has not recurred since then. Does feel like she gets a heat rash that is worst in the late summer after she has been out in the sun a lot. States that she is always been flexible and can easily palm the floor when she bends over to touch her toes.Reports that tachycardia has been worked up with a Holter monitor in the past and that this was revealed to be sinus tachycardia. ROS (positive in bold): General fevers, chills, night sweats, weight loss HEENT oral ulcers, dry eyes, dry mouth, red/itchy eyes, eye pain, vision changes Card chest pain, palpitations Pulm SOB, cough, [facility] abd pain, nausea, vomiting, diarrhea, constipation, dysphagia, reflux dysuria, hematuria, genital ulcers, changes to color of urine MS arthritis, arthralgia, muscle aches Neuro weakness, numbness, tingling, OLVERA Skin Raynaud's, rash (on face, last time in early 20s), hair loss, photosensitivity Medical History: As above in HPI. Surgical History: No past surgical history on file. Family Hx: Sister has SLE Social History: Never smoker EtOH: socially No illicit drug use Son was delivered 4.5 weeks early but is otherwise healthy. Also has a healthy daughter. Medications: Current Outpatient Medications on File Prior to Visit Medication Sig Dispense Refill ??? methylphenidate (CONCERTA) 54 mg Tablet Extended Rel 24 hr Take 54 mg by mouth every morning. No current facility-administered medications on file prior to visit. Allergies: Not on File Physical Examination: BP 118/66 Pulse (!) 113 Temp 36.5 ??C (97.7 ??F) (Temporal) Ht 165.1 cm (5' 5) Wt 53.1 kg (117 lb) SpO2 100% BMI 19.47 kg/m?? General: Well appearing, NAD HEENT: Mucous membranes are moist, no oral mucosal ulcerations, EOMI grossly, NCAT Neck: Supple, no lymphadenopathy, full range of motion Cardiovascular: Tachycardic, regular rhythm, no m/r/g, 2+ pulses Lungs: CTA b/l no w/r/r Abdomen: Soft, nontender, nondistended, normal active bowel sounds, no bruits Back: Nontender over the spine Neuro: Alert and oriented x3. Cranial nerves III through XII grossly intact. Skin: no rashes or lesions noted Nails: no nail pitting, no abnormal nailfold capillaries of fingers or toes under dermatoscopy Extremities: Shoulders: FROM, non-tender to palpation Elbows: Hypermobile, no swelling Wrists: FROM, no swelling, non-tender Hands: No synovitis, no MCP compression tenderness, full claw and fist, thumbs are hypermobile bilaterally Hips: Hypermobile with external rotation, JAVIER testing results in low back pain bilaterally Knees: FROM, no effusion, no tenderness Ankles: FROM, non-tender, no effusion Feet: no MTP compression tenderness, no swelling in MTP/DIP/PIPs Laboratory Data: 02/21/21- NMO and MOG IgG pending. 07/21/20-NMO and MOG IgG negative. 04/12/2020- CSF:KAPPA Free Light Chain NEGATIVE: <0.0083 (below threshold associated with demyelinating disease). Glucose CSF 52, protein CSF 35, cell count-0 WBC, 4 RBC, tube #1, 1 WBC 5 RBC, cytology negative, flow cytometry no evidence of lymphoma. ??Composed of only rare heterogeneous T-cells and too few B-cell VDRL CSF negative, TONI CSF 1.4. 03/31/20- NMO and MOG IgG negative. Cardiolipin antibodies Negative, beta-2 glycoprotein antibodiesnegative, vitamin B12 365, folate 10.6, CRP and ESR were normal. ANCA negative. TONI negative. Sjogren's antibodies negative. SHITAL was negative. LAC negative. February 2013-through Dr Rosa and Dr Colin negative TONI, negative Lyme antibody screening test.Negative cardiolipin antibodies, negative beta-2 glycoprotein antibodies, SHITAL titer less than 1: 32, negative SSA/SSB, negative scleroderma, negative Cee 1, negativeetich labs-Blackman and SEAT COVERER antibodies. Double- stranded DNA titer negative. CRP less than 0.34, rheumatoid factor negative. Lyme was tested once was negative. CBC normal. Creatinine normal. CSF: 03/2013-CBC, TONI, culture, cytology, glucose, HSV, Lyme, MS panel, protein labs-all normal. Visual Evoked potentials-[facility]-02/04/2013-normal study- P100 latency on the left 93.8, on the right 96.5. Studies: MRI brain and orbits with and without contrast 04/03/2020-normal brain parenchyma. Evaluation of the orbits demonstrates the ocular globes to be normal in size and shape. The extraocular muscles appear normal. The optic nerves are normal in thickness and signal with no abnormal enhancement. The optic chiasm appears normal with no mass effect on the chiasm. There is a normal amount of fluid in the optic nerve sheaths and there is no flattening of the optic discs. No abnormal enhancement. MRI of the brain January 28, 2013-normal-no evidence of demyelinating lesions. Mild widening of theoptic nerve sheaths bilaterally and mild tortuosity of the optic nerves compatible with papilledemasuggestive of increased intracranial pressure MRI scans of the cervical and thoracic spine 12/22/2012-unremarkable, no definite evidence of demyelination. Tiny patchy spot at the anterior T1 level only on axial, not on annually other sequences. Likely artifact. Assessment: Pradeep Patel is a 46 y.o. female with a PMH significant for ADHD who presents today due to concern for autoimmune cause of recurrent optic neuritis. Pradeep has had an extensive rheumatologic work-up (studies listed above) conducted in the past which has been unrevealing. Diagnoses considered include SLE, MCTD, SSc, inflammatory myositis, Sjogren's, overlap syndrome, sarcoidosis, AAV, RA, APS, and Lyme, among others. Other than her recurrent optic neuritis, her Raynaud's appears to be her most bothersome symptom. In the setting of aforementioned negative rheumatologic workup as well as normal nailfold capillaries on exam, we believe the Concerta she takes for her ADHD is a leading potential cause. In addition, given her very evident hypermobility on exam, we wonder if vascular EDS is contributing. She was noted to have SI joint pain with provocative examination maneuvers today. While this certainly could be a result of OA caused by her hypermobility (which is especially evident in her hips), it does not appear that she has ever been evaluated for an HLA-B27 associated spondyloarthropathy (other than having normal inflammatory markers). While optic neuritis isn't usually associated with HLA-B27 spondyloarthropathies in the way that uveitis is, literature review reveals rare case reports of such (see references below). Of note, these cases were observed in patients of Filipino descent. References: Armani Ricks et al. ???Acute Bilateral Optic Neuritis in Active Ankylosing Spondylitis.?Filipino medical journal??128.20 (2015): 6676-6840.?? Armani Ricks et al. ???Optic Neuritis with Positive HLA-B27: Characteristic Phenotype in the Filipino Population.?Journal of the neurological sciences??362 (2016): 100-105. Plan: -referral to Dr. Blackman of neurology -referral to ophthalmology -labs today: SHITAL, BEBO, C3, C4, UA, urine protein/creatinine, HLA-B27 -TTE to assess for aortic root involvement/pathology (if positive, will refer to genetics due to concern for vascular EDS) -SI joint XRs -DEXA given significant hypermobility -given lack of evidence of rheumatologic process present at this time, will defer treatment to Dr. Blackman and/or ophthalmology -strongly consider shorter acting formulation of methylphenidate than Concerta with the hope that this might improve her Raynaud's No need for scheduled follow up with rheumatology at this time although we are happy to assist as needed if systemic immunosuppression is deemed necessary The patient was seen and discussed with Dr. Mak Reddy MD Rheumatology Fellow Pager: [phone] CC: No primary care provider on file. * Rose Corado DO - 02/03/2022 12:30 PM EDT Pradeep Patel is a 46 y.o. female with a long hx of ON referred for evaluation of poss underlying rheumatologic cause. She has previously been evaluated by Dr Lopez at [facility] in 2011 with a thorough clinical and laboratory evaluation and these labs were recently repeated and again remain negative. Today she was referred for raynauds, knee pain and hair loss. On exam she has no anl nailfold caps and a negative SHITAL (on prior labs), and is on concerta which can cause vasoconstriction and result in raynauds, her knee pain sounds consistent with PFS. She additionally is quite mobile on examination meeting beighton criteria, which likely contributes to her back and knee pain. Baseline dexa and echo and recommend PT. At this time no clear underlying rheumatologic cause for her ON, but would like to get her into neurology here. documented in this encounter Plan of Treatment Upcoming Encounters Date Type Department Care Team (Late st Contact Info) Description 06/16/2024 8:40 AM EST Appointment Mammography/[place] [address] Radha Fernandez MD [address] [place] [address] 08/10/2024 9:30 AM EDT Office [place] [address] Miguel Angel Blackman III, MD [facility] [place] [address] Scheduled Referrals Name Type Priority Associated Diagnoses Order Schedule Referral to Ophthalmology Outpatient Referral Routine Recurrent optic neuritis Ordered: 02/03/2022 Referral to Neurology Outpatient Referral Routine Recurrent optic neuritis Ordered: 02/03/2022 documented as of this encounter Procedures Procedure Name Priority Date/Time Associated Diagnosis Comments HC PCH EXTRACTABLE NUCLEAR ANTIGEN Routine 02/03/2022 2:34 PM EDT Recurrent optic neuritis HC VENIPUNCTURE Routine 02/03/2022 2:34 PM EDT Low back pain, non-specific WBC Routine 02/03/2022 2:34 PM EDT HC COMPLEMENT,C3 SERUM Routine 02/03/2022 2:34 PM EDT Recurrent optic neuritis HC COMPLEMENT C4, PLASMA Routine 02/03/2022 2:34 PM EDT Recurrent optic neuritis HC PCH ANATITRE (ANDPATTERN) Routine 02/03/2022 2:34 PM EDT Recurrent optic neuritis HC PROTEIN, QUANTITATIVE, URINE Routine 02/03/2022 2:31 PM EDT Recurrent optic neuritis URINALYSIS WITH REFLEX CULTURE Routine 02/03/2022 2:31 PM EDT Recurrent optic neuritis documented in this encounter Results * DXA Central Spine, Hip, and/or Whole Body (Generic) (04/25/2022 10:25 AM EST) Anatomical Region Laterality Modality C-spine, Hip N/A Other Impressions 04/24/2022 5:54 PM EST The Z-scores, not T-scores, are preferred BMD reporting in femalesp prior to menopause. The measurements are within the expected range for age (defined as a Z-score above -2 or a bone density measurement that is within 2 standard deviations of age matched cohorts.) DEXA data sheets with BMD measurements and plots are available in [employer] under the imaging tab. Paper copies will be sent to providers without E- access. If you have received this report without the data sheet and do not have access to [employer], please contact [facility] at [phone]. ? Bone Density Report ? Name: ?Celestino Pateleloy Age: ? 46 Sex: ? Female Ethnicity: ? White Date of : 1975 Referring Provider: KEILA REDDY Study: Bone densitometry was performed. Model: [employer] A (S/N [id number]) version 13.6.0.5 Exam Date: April 24, 2022 Accession number: [id number] Bone Density: Region ? BMD ?T-score ??Z-score ? AP Spine(L1-L4) ?1.068 ?0.2 ?0.6 ? Femoral Neck (Left) ?0.832 ?? -0.2 ?0.3 ? Total Hip (Left) ? 0.968 ?0.2 ?0.5 ? World Health Organization criteria for BMD impression classify patients as: Normal (T-score at or above -1.0), Osteopenia (T-score between -1.0 and -2.5), or Osteoporosis (T-score at or below -2.5). Thank you for letting us participate in the care of this patient. ??If you are a health care provider and have any questions regarding this report, please contact the number below. ??For patients who have questions please contact the health md do resident urgent care that requested your imaging first. ? Narrative 04/24/2022 5:54 PM EST EXAMINATION: DXA SPINE HIP AND OR WHOLE BODY CLINICAL HISTORY: TECHNIQUE: Scans were acquired at the lumbar spine, and left hip. COMPARISON: none FINDINGS: Lowest Z-score at a diagnostic region of interest: Z-score: 0.3, DEYANIRA: Femoral neck Procedure Note Sarah Walker MD - 04/25/2022 EXAMINATION: DXA SPINE HIP AND OR WHOLE BODY CLINICAL HISTORY: TECHNIQUE: Scans were acquired at the lumbar spine, and left hip. COMPARISON: none FINDINGS: Lowest Z-score at a diagnostic region of interest: Z-score: 0.3, DEYANIRA: Femoral neck IMPRESSION The Z-scores, not T-scores, are preferred BMD reporting in femalesp priorto menopause. The measurements are within the expected range for age (defined as aZ-score above -2 or a bone density measurement that is within 2 standarddeviations of age matched cohorts.) DEXA data sheets with BMD measurements and plots are available in [employer] the imaging tab. Paper copies will be sent to providers without [employer] access.If you have received this report without the data sheet and do not haveaccess to [employer], please contact [facility] at [phone]. Bone Density Report Name: Pradeep Patel Age: 46 Sex: Female Ethnicity: White Date of : 1975 Referring Provider: KEILA REDDY Study: Bone densitometry was performed. Model: [employer] (S/N [id number]) SW version 13.6.0.5 Exam Date: April 24, 2022 Accession number: [id number] Bone Density: Region BMD T-score Z-score AP Spine(L1-L4) 1.068 0.2 0.6 Femoral Neck (Left) 0.832 -0.2 0.3 Total Hip (Left) 0.968 0.2 0.5 World Health Organization criteria for BMD impression classify patients as: Normal (T-score at or above -1.0), Osteopenia (T-score between -1.0 and -2.5), or Osteoporosis (T-score at or below -2.5). Thank you for letting us participate in the care of this patient. If youare a health care provider and have any questions regarding this report,please contact the number below. For patients who have questions please contactthe health md do resident urgent care that requested your imaging first. Rose D Mak DO IMG DEXA ORDERABLE S * XR Sacroiliac Joints (GENERIC) (04/24/2022 9:44 AM EST) Anatomical Region Laterality Modality Pelvis, Hip N/A Digital Radiogra phy Impressions 04/24/2022 12:05 PM EST 1. ??No ankylosis or erosions 2. ??Degenerative change at RIGHT SI joint. Thank you for letting us participate in the care of this patient. ??If you are a health care provider and have any questions regarding this report, please contact the number below. ??For patients who have questions please contact the health md do resident urgent care that requested your imaging first. ? Narrative 04/24/2022 12:05 PM EST EXAMINATION: XR SACROILIAC JOINTS (GENERIC) CLINICAL HISTORY: low back pain, evidence of inflammatory arthritis or sacroiliac pathology?, entered by ordering service TECHNIQUE: SI joints 3 view[s] COMPARISON: none FINDINGS: Bones No acute fracture Joints SI joints-normal ??spacing and alignment. No ankylosis or erosions. Narrow zone of Subchondral sclerosis and minor cystic changes around the RIGHT SI joint is degenerative in nature. Soft tissues Normal Pubic symphysis- Normal spacing and alignment Procedure Note Sarah Walker MD - 04/24/2022 EXAMINATION: XR SACROILIAC JOINTS (GENERIC) CLINICAL HISTORY: low back pain, evidence of inflammatory arthritis or sacroiliac pathology?, entered by ordering service TECHNIQUE: SI joints 3 view[s] COMPARISON: none FINDINGS: Bones No acute fracture Joints SI joints-normal spacing and alignment. No ankylosis or erosions. Narrowzone of Subchondral sclerosis and minor cystic changes around the RIGHT SIjoint is degenerative in nature. Soft tissues Normal Pubic symphysis- Normal spacing and alignment IMPRESSION 1. No ankylosis or erosions 2. Degenerative change at RIGHT SI joint. Thank you for letting us participate in the care of this patient. If youare a health care provider and have any questions regarding this report,please contact the number below. For patients who have questions please contactthe health md do resident urgent care that requested your imaging first. Rose Corado DO IMG DX ORDERABLES * ECHO COMPLETE (04/24/2022 9:34 AM EST) EF 61 HEARTLAB SYSTEM Anatomical Region Laterality Modality Cardiac Other 04/24/2022 8:58 AM EST Narrative 04/24/2022 10:31 AM EST ? Echocardiogram Report Name: JORGE PRADEEP ?Study Date: 04/24/2022 08:58 AMBP: 117/75 mmHg ? Patient Location: 4A ? HR: 101 : 1975 ? Height: 165 cm ? Account: [id number] Age: 46 yrs ? Weight: 57 kg Gender: Female ?BSA: 1.6 m2 Ordering Physician: ROSE CORADO Referring Physician: KEILA REDDY Performed By: Stanley Carrillo RDCS Reason For Study: Tachycardia Interpreting Fellow: Kaila Mejia. Exam Location: [facility]. Interpretation Summary -Biventricular size and systolic function are normal. LVEF is 61% by Patel's biplane method. There are no segmental wall motion abnormalities. -There is no valve disease. -There is no prior echocardiogram available for comparison. See report for additional findings. Procedure Complete-[id number]. Satisfactory quality. Left Ventricle Left ventricle is [...] Lozada MD - 04/24/2022 Echocardiogram Report Name: PRADEEP PATEL Study Date: 308:58 AMBP: 117/75 mmHg Patient Location: HR: 101 : 1975 Height: 165 cm Account: [id number] Age: 46 yrs Weight: 57 kg Gender: Female BSA: 1.6 m2 Ordering Physician: ROSE CORADO Referring Physician: KEILA REDDY Performed By: Stanley Carrillo RDCS Reason For Study: Tachycardia Interpreting Fellow: Kaila Mejia. Exam Location: [facility]. Interpretation Summary -Biventricular size and systolic function are normal. LVEF is 61% bySimpson's biplane method. There are no segmental wall motion abnormalities. -There is no valve disease. -There is no prior echocardiogram available for comparison. See reportfor additional findings. Procedure Complete-[id number]. Satisfactory quality. Left Ventricle Left ventricle is [...] Dyskinetic 3-5moderate 5 - 6-14large Aneurysmal 15-16diffuse Rose Corado DO ECHO ORDERABLES * WBC (02/03/2022 2:34 PM EDT) White Blood Cell 7.4 4.0 - 9.5 x10(3)/mcL [facility] Blood 02/03/2022 2:34 PM EDT 02/03/2022 3:03 PM EDT Narrative Resulting Agency Comment Spec In Lab Keila Reddy MD HEMATOLOGY ORDMami PATEL Performing Organization Address [facility]/ZIP Co de Phone Number [facility] [place] [address] * HLA-B27 (02/03/2022 2:34 PM EDT) HLA-B27 Negative [facility] HLA B27 Interpretation HLA B27 antigen was not detected. Method: Flow Cytometry Reference: 1.Helene DA, Young TAFOYA, Tirso A, et al: Ankylosing spondylitis and HLA-27. Lancet 1973;1:904-907 2.Quintin J, Michelle OLVERA: HLA-B27 typing by use of flow cytofluorometr y. Clin Chem 1987;33:1619-1 623 [facility] White Blood Cell 7.4 4.0 - 9.5 x10(3)/m cL [facility] Blood 02/03/2022 2:34 PM EDT 02/03/2022 3:03 PM EDT Narrative Resulting Agency Comment Spec In Lab Rose Corado DO HEMATOLOGY ORDERAB LES Performing Organization Address City/[facility]/ZIP Co de Phone Number [facility] [place] [address] * C4 Complement (02/03/2022 2:34 PM EDT) Complement C4 14 10 - 40 mg/dL [facility] Blood 02/03/2022 2:34 PM EDT 02/03/2022 3:03 PM EDT Narrative Resulting Agency Comment Spec In Lab Rose Corado DO CHEMISTRY ORDERABL ES Performing Organization Address [facility]/ZIP Co de Phone Number [facility] [place] [address] * C3 Complement (02/03/2022 2:34 PM EDT) Complement C3 101 90 - 180 mg/dL [facility] Blood 02/03/2022 2:34 PM EDT 02/03/2022 3:03 PM EDT Narrative Resulting Agency Comment Spec In Lab Rose Marine Mendietaew CHEMISTRY ORDERABL ES Performing Organization Address [facility] Co de Phone Number [facility] [place] [phone] * Extractable Nuclear Antigen (BEBO) Ab (02/03/2022 2:34 PM EDT) BEBO Ab Test ?Result ? Flag ??Unit ??RefValue Ab to Extractable Nuclear Ag Eval,S ??SS-A/Ro Ab, IgG, S ?<0.2 ? U ? <1.0 (Negative) ??SS-B/La Ab, IgG, S ?<0.2 ? U ? <1.0 (Negative) ??Sm Ab, IgG, S ? <0.2 ? U ? <1.0 (Negative) ??SEAT COVERER Ab, IgG, S ?<0.2 ? U ? <1.0 (Negative) ??Scl 70 Ab, IgG, S ? <0.2 ? U ? <1.0 (Negative) ??Cee 1 Ab, IgG, S ? <0.2 ? U ? <1.0 (Negative) ?Test Performed by: ?[facility] ?[address] [id number] ?Physics Technician: Herber Sykes M.D. Ph.D.; CLIA# [id number] [facility] Blood 02/03/2022 2:34 PM EDT 02/04/2022 4:11 PM EDT Narrative Resulting Agency Comment Spec In Lab Rose Corado DO LAB SEND OUT ORDER SKINNY [facility] [place] [address] * SHITAL Antibody Screen (02/03/2022 2:34 PM EDT) SHITAL Ab Screen Test ?Result ? Flag ??Unit ??RefValue Antinuclear Ab, HEp-2 ? <1:80 (Negative) ? <1:80 (Negative) ??Substrate, S ? ADDITIONAL INFORMATION --------- ?Method: Immunofluorescence using HEp-2 cellular substrate. ?Test Performed by: ?[facility] ?[address] [place] [address] ?Physics Technician: Herber Sykes M.D. Ph.D.; CLIA# [id number] [facility] Blood 02/03/2022 2:34 PM EDT 02/04/2022 4:11 PM EDT Narrative Resulting Agency Comment Spec In Lab Rose Corado DO LAB SEND OUT ORDER SKINNY [facility] [place] [address] * Protein/Creatinine Ratio, urine (02/03/2022 2:31 PM EDT) Creatinine, Urine 55 mg/dL [facility] Protein, Urine <6 0 - 12 mg/dL [facility] Protein / Creatinine Ratio, Urine <0.1 ratio [facility] Urine 02/03/2022 2:31 PM EDT 02/03/2022 2:39 PM EDT Narrative Resulting Agency Comment Spec In Lab Rose Mendietasri SAEZ URINE ORDERABLES Performing Organization Address City/[facility]/ZIP Co de Phone Number [facility] [place] [address] * Urinalysis with reflex Culture (02/03/2022 2:31 PM EDT) Glucose, Urine Dipstick Negative Negative mg/dL [facility] Protein, Urine Dipstick Negative Negative mg/dL [facility] Bilirubin, Urine Dipstick Negative Negative mg/dL [facility] Comment: Clinical correlation required for positive Urine Bilirubin results as false positive may occur with some drugs and drug related products. If a false positive is suspected a serum total bilirubin should be considered if clinically indicated. Urobilinogen, Urine Dipstick Normal Normal mg/dL [facility] pH, Urn (dipstick) 5.5 5.0 - 8.0 [facility] Blood, Urine Dipstick Negative Negative mg/dL [facility] Ketone, Urine Dipstick Negative Negative mg/dL [facility] Nitrite, Urine Dipstick Negative Negative [facility] Leukocytes, Urine Dipstick Negative Negative [facility] Appearance, Urine Dipstick Clear Clear [facility] Specific Strum Urine Automated 1.015 1.005 - 1.030 [facility] Color, Urine Dipstick Yellow Yellow [facility] Reflex to Culture No [facility] Urine NS 02/03/2022 2:31 PM EDT 02/03/2022 2:38 PM EDT Narrative Resulting Agency Comment Spec In Lab Rose D Mak DO URINE ORDERABLES Performing Organization Address [facility]/ZIP Co de Phone Number [facility] [place] [address] documented in this encounter Visit Diagnoses Diagnosis Low back pain, non-specific Recurrent optic neuritis Optic neuritis, unspecified Tachycardia Tachycardia, unspecified Tachycardia Tachycardia, unspecified Low back pain, non-specific Low back pain, non-specific documented in this encounter
--- OUTSIDE RECORDS SUMMARY | 2024-04-18 16:36 | XMS_ITS | Encounter Summary ---
Author Organization [facility] [place] [address] Care Team Providers Care Venetian Blind Cleaner And Repairer Name Role Phone Curtis Jiang MD Primary Care Provider [phone] Encounter Details Date Type Department Care Team (Latest Contact Info) Description 03/22/2023 External [place] [phone] Miguel Angel Blackman III, MD [facility] [place] [address] Chronic relapsing inflammatory optic neuropathy Social History [...] 06/16/2024 8:40 AM EST Appointment Mammography/[place] [address] Radha Fernandez MD [address] [address] 08/10/2024 9:30 AM EDT Office [place] [address] Miguel Angel Blackman III, MD [facility] [place] [address] documented as of this encounter Procedures Procedure Name Priority Date/Time Associated Diagnosis Comments CBC (WITH DIFF) Routine 03/20/2023 8:02 AM EST Chronic relapsing inflammatory optic neuropathy HEPATIC FUNCTION PANEL Routine 03/20/2023 8:02 AM EST Chronic relapsing inflammatory optic neuropathy documented in this encounter Results * (ABNORMAL) CBC (with Diff) (03/20/2023 8:02 [...] neuropathy documented in this encounter Care Teams Venetian Blind Cleaner And Repairer Relationship Specialty Start Date End Date Curtis Jiang MD [address] [place] [address] PCP - General Family Medicine 01/19/23 documented as of this encounter
--- OUTSIDE RECORDS SUMMARY | 2024-04-18 16:36 | XMS_ITS | Encounter Summary ---
Author Organization [facility] [place] [address] Care Team Providers Care Fish Straightener Name Role Phone Curtis Jiang MD Primary Care Provider [phone] Reason for Visit * Reason Onset Date Comments Other 01/14/2023 Medication quest ion Encounter Details Date Type Department Care Team (Late st Contact Info) Description 01/14/2023 [place] [address] Miguel Angel Blackman III, MD [facility] [place] [address] Other (Medication question) Social History Tobacco Use Types Packs/Day Years [...] encounter Miscellaneous Notes * Telephone Encounter - Radha Abad RN - 01/15/2023 11:02 AM EDT Spoke with pt. Dr Blackman response: This seems reasonable to me Pt with no other needs * Telephone Encounter - Radah Abad RN - 01/14/2023 8:51 AM EDT Copied from CRM #[id number]. Topic: Specialty Dept CRMs - Medication Issues >> Jan 14, 2023 8:08 AM Dominguez Janette Ivon wrote: Medication Issues Specialist: Miguel Angel Blackman III, MD Relationship (if other than patient-full name): Pradeep Brady Reason for call: Medication Issue (if symptom based used Triage Subtopic) Message/information for the nurse: Please call patient to advise Dr. Blackman's feedback regarding patients question. Name of Medication: Amoxicillin (prescribed by an urgent care provider) Issue with the medication: Patient called this morning requesting feedback from Dr. Blackman regardinga medication that she was just prescribed. Patient states that she just went to urgent care for an infected tooth and wants to make sure that Dr. Blackman thinks that she has enough medication to actually get rid of the tooth infection entirely. Patient states that she was prescribed the Amoxicillin as 1 tab 3 times a day with a prescribed quantity of 30 500 mg tablets. Patient is wondering if thinks this is enough medication to get rid of her tooth infection entirely. Please call patient to discuss and advise Dr. Blackman's feedback regarding patients question. Thank you. documented in this encounter Plan of Treatment Upcoming Encounters Date Type Department Care Team (Late st Contact Info) Description 06/16/2024 8:40 AM EST Appointment Mammography/[place] [address] Radha Fernandez MD [address] [place] [address] 08/10/2024 9:30 AM EDT [place] [address] Miguel Angel Blackman III, MD [facility] [place] [address] documented as of this encounter Visit Diagnoses Not on filedocumented in this encounter Care Teams Fish Straightener Relationship Specialty Start Date End Date Curtis Jiang MD [address] [place] [address] PCP - General Family Medicine 01/19/23 documented as of this encounter
--- OUTSIDE RECORDS SUMMARY | 2024-04-18 16:36 | XMS_ITS | Encounter Summary ---
Author Organization [facility] [place] [address] Care Team Providers Care Adobe Layer Helper Name Role Phone Becca Lewis MD Primary Care Provider [phone] Encounter Details Date Type Department Care Team (Late st Contact Info) Description 09/11/2022 Telephone [place] [address] Miguel Angel Blackman III, MD [facility] [place] [address] Social History Tobacco Use Types Packs/Day Years [...] Telephone Encounter - Annamarie Kuo RN - 09/12/2022 11:06 AM EDT sent effexor prescription to pharmacy and replied to pt via my . * Telephone Encounter - Annamarie Kuo RN - 09/11/2022 12:47 PM EDT Please see 09/09/22 my message. nurtec prescription was sent to the pharmacy by . messagesent to regarding Effexor. Plan:per above. * Telephone Encounter - Annamarie Kuo RN - 09/11/2022 12:47 PM EDT Copied from [facility] #[id number]. Topic: Specialty Dept CRMs - Medication Issues >> September 10, 2022 4:36 PM Deanna Guzman wrote: Medication Issues Specialist Dr. Blackman Relationship (if other than patient-full name): Pradeep Brady Reason for call: Medication Issue (if symptom based used Triage Subtopic) Message/information for the nurse: following up on 09/[address] [facility] message about medications Name of Medication: Nurtec and Effexor Issue with the medication: Patient wondering if Dr. Blackman was going to prescribe effexor and if either medication has been sent to pharmacy yet documented in this encounter Plan of Treatment Upcoming Encounters Date Type Department Care Team (Late st Contact Info) Description 06/16/2024 8:40 AM EST Appointment Mammography/[place] [address] Radha Fernandez MD [address] [place] [address] 08/10/2024 9:30 AM EDT Office [place] [address] Miguel Angel Blackman III, MD [facility] [place] [address] documented as of this encounter Visit Diagnoses Not on filedocumented in this encounter Care Teams Adobe Layer Helper Relationship Specialty Start Date End Date Becca Lewis MD PCP - General Family Medicine 09/09/22 01/18/23 documented as of this encounter
--- OUTSIDE RECORDS SUMMARY | 2024-04-18 16:36 | XMS_ITS | Encounter Summary ---
Author Organization [facility] Address [facility] [place] [address] Care Team Providers Care Upper Leather Sorter Name Role Phone Curtis Jiang MD Primary Care Provider [phone] Encounter Details Date Type Department Care Team (Latest Contact Info) Description 03/09/2023 Travel Social History Tobacco Use Types Packs/Day [...] 06/16/2024 8:40 AM EST Appointment Mammography/[place] [phone] Radha Fernandez MD [address] [place], [place] [address] 08/10/2024 9:30 AM EDT Office [place] [phone] Miguel Angel Blackman III, MD [facility] [place] [address] documented as of this encounter Visit Diagnoses Not on filedocumented in this encounter Care Teams Upper Leather Sorter Relationship Specialty Start Date End Date Curtis Jiang MD [address] [place] [address] PCP - General Family Medicine 01/19/23 documented as of this encounter
--- OUTSIDE RECORDS SUMMARY | 2024-04-18 16:36 | XMS_ITS | Encounter Summary ---
Author Organization [facility] [place] [address] Care Team Providers Care Ticket Agent Name Role Phone Curtis Jiang MD Primary Care Provider [phone] Encounter Details Date Type Department Care Team (Latest Contact Info) Description 03/09/2023 10:50 AM EST Laboratory Appointment Lab [address] [place] [address] Chronic relapsing inflammatory optic neuropathy; Encounter for [...] 06/16/2024 8:40 AM EST Appointment Mammography/[place] [address] Radha Fernandez MD [address] [address] 08/10/2024 9:30 AM EDT [place] [address] Miguel Angel Blackman III, MD [facility] [place] [address] documented as of this encounter Procedures Procedure Name Priority Date/Time Associated Diagnosis Comments TPMT ACTIVITY PROFILE, RBC Routine 03/09/2023 11:07 AM EST Chronic relapsing inflammatory optic neuropathy Encounter for monitoring azathioprine therapy HEMOGRAM Routine 03/09/2023 11:07 AM EST Chronic relapsing inflammatory optic neuropathy DIFFERENTIAL, AUTOMATED Routine 03/09/2023 11:07 AM EST Chronic relapsing inflammatory optic neuropathy CBC (WITH DIFF) Routine 03/09/2023 11:07 AM EST Chronic relapsing inflammatory optic neuropathy HEPATIC FUNCTION PANEL Routine 03/09/2023 11:07 AM EST Chronic relapsing inflammatory optic neuropathy documented in this encounter Results * Differential, Automated (03/09/2023 11:07 AM EST) Neutrophil % 59.8 % [facility] Neutrophil Absolute 2.59 1.70 - 6.10 x10(3)/[facility] Lymph % 27.7 % [facility] Lymphocytes Abs 1.2 0.9 - 3.2 x10(3)/[facility] Monocyte % 9.5 % [facility] Monocyte Abs 0.4 0.3 - 0.9 x10(3)/[facility] Eos % 1.6 % [facility] Eosinophils Abs 0.1 0.0 - 0.4 x10(3)/[facility] Basophil % 1.2 % [facility] Baso Absolute 0.0 0.0 - 0.1 x10(3)/[facility] Immature Gran % 0.20 % [facility] Comment: Immature granulocytes(IG's)percentage and absolute count will include metamyelocytes, myelocytes, and promyelocytes. Blood smears from CBCs yielding IG's will be scanned manually for concordance. If this scan disagrees with the automated IG or if promyelocytes are noted, a manual differential will be performed. Immature Gran Absolute 0.01 0.00 - 0.04 x10(3)/[facility] Blood 03/09/2023 11:0 7 AM EST 03/09/2023 11:16 AM EST Narrative Resulting Agency Comment Spec In Lab Miguel Angel Blackman III, MD HEMATOLOGY ORDERA BLES Performing Organization Address [facility] de Phone Number [facility] [place] [address] * Hemogram (03/09/2023 11:07 AM EST) White Blood Cell 4.3 4.0 - 9.5 x10(3)/[facility] Red Blood Cell 4.71 4.00 - 5.21 x10(6)/[facility] Hemoglobin 14.2 11.7 - 15.5 g/dL [facility] Hematocrit 40.9 35.7 - 45.8 % [facility] Mean Cell Volume 86.8 82.6 - 94.4 fL [facility] Mean Cell Hemoglobin 30.1 27.1 - 32.0 pg [facility] Mean Cell Hemoglobin Concentration 34.7 31.7 - 35.0 g/dL [facility] Platelet 227 145 - 357 x10(3)/[facility] RDW Standard Deviation 41.1 37.0 - 46.0 fL [facility] RDW coefficient of variation 13.2 11.5 - 14.1 % [facility] Mean Platelet Volume 10.4 7.6 - 12.9 fL [facility] NRBC% auto 0.0 % [facility] NRBC Absolute 0.000 0.000 - 0.000 x10(3)/[facility] Blood 03/09/2023 11:0 7 AM EST 03/09/2023 11:16 AM EST Narrative Resulting Agency Comment Spec In Lab Miguel Angel Blackman III, MD HEMATOLOGY ORDERA BLES Performing Organization Address [facility] Co de Phone Number [facility] [place] [address] * TPMT Activity Profile, RBC (03/09/2023 11:07 AM EST) Tpmt Activity Profile, Rbc (MAY) Test ? Result ?Flag ??Unit ? RefValue TPMT Activity Profile, RBC ??Interpretation ? SEE COMMENTS ?*Normal* In this whole blood sample, the profile of ?activity of thiopurine methyltransferase using three ?different substrates was normal or essentially normal. ? -ADDITIONAL INFORMATION--------- ?Liquid Chromatography-[facility] OY LX Therapies Mass Spectrometry (LC-MS/MS) ?This test was developed and its performance characteristics ?determined by [facility] in a manner consistent with CLIA ?requirements. This test has not been cleared or approved by ?the U.S. Food and Drug Administration. ??6-Methylmercaptopu rine ? 4.12 ?nmol/mL/h ??3.00-6.66 ??6-Methylmercaptopu rine riboside ?7.79 ?nmol/mL/h ??5.04-9.57 ??6-Methylthioguanin e riboside ? 3.87 ?nmol/mL/h ??2.70-5.84 ??Reviewed By ?Omero Johnson M.D., Ph.D. ?Test Performed by: ?[facility] ?[address] [place] [address] ?Accountant Systems: Herber Sykes M.D. Ph.D.; CLIA# [id number] [facility] Blood 03/09/2023 11:0 7 AM EST 03/09/2023 12:44 PM EST Narrative Resulting Agency Comment Spec In Lab Miguel Angel Blackman III, MD LAB SEND OUT ORDE JORGE Performing Organization Address [facility] de Phone Number [facility] [place] [address] * Hepatic Function Panel (03/09/2023 11:07 AM EST) Protein, Total 6.8 6.1 - 8.0 g/dL [facility] Albumin 4.7 3.2 - 5.2 g/dL [facility] Aspartate Aminotransferase 24 0 - 30 unit/L [facility] Alanine Aminotransferase 22 0 - 30 unit/L [facility] Alkaline Phosphatase 56 35 - 105 unit/L [facility] Bilirubin, Total 0.7 0.2 - 1.3 mg/dL [facility] Bilirubin, Direct 0.2 0.0 - 0.3 mg/dL [facility] Blood 03/09/2023 11:0 7 AM EST 03/09/2023 11:16 AM EST Narrative Resulting Agency Comment Spec In Lab Miguel Angel Blackman III, MD CHEMISTRY ORDERAB LES Performing Organization Address [facility] Co de Phone Number [facility] [place] [address] documented in this encounter Visit Diagnoses Diagnosis Chronic relapsing inflammatory optic neuropathy Encounter for monitoring azathioprine therapy documented in this encounter Care Teams Ticket Agent Relationship Specialty Start Date End Date Curtis Jiang MD [address] [place] [address] PCP - General Family Medicine 01/19/23 documented as of this encounter
--- OUTSIDE RECORDS SUMMARY | 2024-04-18 16:36 | XMS_ITS | Encounter Summary ---
Author Organization [facility] [address] Care Team Providers Care Thread Puller Name Role Phone Becca Lewis MD Primary Care Provider [phone] Reason for Visit * Reason Onset Date Comments Prior Authorization 11/20/2022 rimegepant ( Nurtec ODT) 75 mg disintegrating tablet?? Encounter Details Date Type Department Care Team (Late st Contact Info) Description 11/20/2022 Telephone [place] [address] Bee Cruz CMA Prior Authorization (rimegepant (Nurtec ODT) 75 mg disintegrating tablet??) Social History Tobacco Use Types Packs/Day Years [...] Telephone Encounter - Bee Cruz CMA - 11/20/2022 5:16 PM EDTSummary: Approval Submitted Date: Submitted Date: 11/20/2022 Next Review Date: Next Review Date: 11/21/2023 MENG Outcome: PA Approval Medication Prior Authorization Approval Approved: Nurtec 75MG dispersible tablets Start Date: 11/20/2022 End Date: 11/21/2023 Case/Reference #: [id number] Approval Letter will be scanned into media once received. 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: [employer] Sent via: [facility]: [id number] Physician: Miguel Angel Blackman III, MD Medication [...] 06/16/2024 8:40 AM EST Appointment Mammography/[place] [address] Radha Fernandez MD [address] [place] [address] 08/10/2024 9:30 AM EDT Office [place] [phone] Miguel Angel Blackman III, MD [facility] [place] [address] documented as of this encounter Visit Diagnoses Not on filedocumented in this encounter Care Teams Thread Puller Relationship Specialty Start Date End Date Becca Lewis MD PCP - General Family Medicine 09/09/22 01/18/23 documented as of this encounter
--- OUTSIDE RECORDS SUMMARY | 2024-04-18 16:36 | XMS_ITS | Encounter Summary ---
Author Organization [facility] [place] [address] Care Team Providers Care Picker Feeder Name Role Phone Unavailable Primary Care Provider Unavailabl e Encounter Details Date Type Department Care Team (Latest Contact Info) Description 04/24/2022 Travel Social History Tobacco Use Types Packs/Day [...] 06/16/2024 8:40 AM EST Appointment Mammography/[place] [address] Radha Fernandez MD [address] [address] 08/10/2024 9:30 AM EDT Office [place] [address] Miguel Angel Blackman III, MD [facility] [place] [address] documented as of this encounter Visit Diagnoses Not on filedocumented in this encounter
--- OUTSIDE RECORDS SUMMARY | 2024-04-18 16:36 | XMS_ITS | Encounter Summary ---
Author Organization [facility] [place] [address] Care Team Providers Care Visual Coordinator Name Role Phone None Primary Care Provider Unavailabl e Reason for Visit * Reason Onset Date Comments Reminder Appointment 08/29/2022 Encounter Details Date Type Department Care Team (Late st Contact Info) Description 08/29/2022 [place] [phone] Miguel Angel Blackman III, MD [facility] [place] [address] Reminder Appointment Social History Tobacco Use Types Packs/Day [...] encounter Miscellaneous Notes * Telephone Encounter - Katie Plascencia CMA - 08/29/2022 9:49 AM EDT Unable to reach this patient by phone to review their medications and allergies prior to their upcoming tele-appointment with the Neurology provider. No message left. documented in this encounter Plan of Treatment Upcoming Encounters Date Type Department Care Team (Late st Contact Info) Description 06/16/2024 8:40 AM EST Appointment Mammography/[place] [address] Radha Fernandez MD [address] [place] [address] 08/10/2024 9:30 AM EDT [place] [address] Miguel Angel Blackman III, MD [facility] [place] [address] documented as of this encounter Visit Diagnoses Not on filedocumented in this encounter Care Teams Visual Coordinator Relationship Specialty Start Date End Date None None PCP - General 08/03/22 09/08/22 documented as of this encounter
--- OUTSIDE RECORDS SUMMARY | 2024-04-18 16:36 | XMS_ITS | Encounter Summary ---
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 Name Role Phone Unavailable Primary Care Provider Unavailabl e Reason for Referral * Consultation (Routine) - Specialty Diagnoses / Procedures Referred By Bernardo vizcaino Referred To Contact Ophthalmology Diagnoses Bilateral optic neuropathy Miguel Angel Blackman III, MD [facility] [place] [address] Chela Chang MD [facility] [place] [place] [address] Referral ID Status Reason Start Date Expiration Date V isits Requested Visits Authorized [id number] Consult, Test & Treat 07/09/2022 07/09/2023 1 1 * Diagnostic Test (Routine) - Closed Specialty Diagnoses / Procedures Referred By Bernardo vizcaino Referred To Contact Radiology Diagnoses Bilateral optic neuropathy Procedures MRI Orbit wwo Contrast Miguel Angel Blackman III, MD [facility] [place] [address] [place] [address] Referral ID Status Reason Start Date Expiration Date V isits Requested Visits Authorized [id number] Closed Specialty Service Requested 07/09/2022 01/10/2024 1 1 * Diagnostic Test (Routine) - Closed Specialty Diagnoses / Procedures Referred By Bernardo vizcaino Referred To Contact Radiology Diagnoses Bilateral optic neuropathy Procedures MRI Brain wwo Contrast (Generic) Miguel Angel Blackman III, MD [facility] [place] [address] [place] [address] Referral ID Status Reason Start Date Expiration Date V isits Requested Visits Authorized [id number] Closed Specialty Service Requested 07/09/2022 01/10/2024 1 1 Reason for Visit * Consultation (Routine) - Closed Specialty Diagnoses / Procedures Referred By Bernardo vizcaino Referred To Contact Neurology Diagnoses Recurrent optic neuritis Josh Reddy MD [facility] [place] [address] Miguel Angel Blackman III, MD [facility] [place] [place] [address] Referral ID Status Reason Start Date Expiration Date V isits Requested Visits Authorized [id number] Closed Consult, Test & Treat 02/03/2022 02/03/2023 1 1 Encounter Details Date Type Department Care Team (Late st Contact Info) Description 07/09/2022 9:00 AM EDT [place] [phone] Miguel Angel Blackman III, MD [facility] [place] [place] [address] Bilateral optic neuropathy Social History Tobacco Use Types Packs/Day Years Used Date Smoking Tobacco: Never Smokeless Tobacco: Never Tobacco Cessation:Counseling Given: Not Answered Alcohol Use Standard Drinks/Week Comments Yes 0 (1 standard drink = 0.6 oz pur e alcohol) occassionally Sex and Gender Information Value Date Recorded Sex Assigned at Not on file Gender Identity Not on file Sexual Orientation Not on file documented as of this encounter Last Filed Vital Signs Vital Sign Reading Time Taken Comments Blood Pressure 113/77 07/09/2022 8:53 AM EDT Pulse 101 07/09/2022 8:53 AM EDT Temperature - - Respiratory Rate - - Oxygen Saturation - - Inhaled Oxygen Concentration - - Weight 54 kg (119 lb) 07/09/2022 8:53 AM EDT Height 166.4 cm (5' 5.5) 07/09/2022 8:53 AM EDT Body Mass Index 19.5 07/09/2022 8:53 AM EDT documented in this encounter Progress Notes * Miguel Angel Blackman III, MD - 07/09/2022 9:00 AM EDT [facility] New Patient Visit Dear Josh Reddy MD and Rose Corado DO, I saw Pradeep Brady in clinic today in consultation for recurrent optic neuritis and concern for MS. She was accompanied by her at today's visit. Below is my consultation note with impressionand plan. Please do not hesitate to call with any questions. Appointment time: 9:10 -9:55 (total 45 minutes) Chief Complaint: optic neuritis History of Presenting Illness: Pradeep Brady is a 46 y.o. woman with reported history of presumed bilateral optic neuritis previously followed by Dr. Taylor at [facility] in [place], [place] (established care in 03/2020, last appointment 02/2021). Per review of notes from Dr. Taylor she has an initial presentation of right 18, left inferior temporal visual field deficit in 2012 and diagnosed with bilateral optic neuritis for which she was treated with oral prednisone, 3 days high-dose Solu-Medrol with improvement in color vision, but consistent left lower visual field deficit. There left inferior temporal quadrant vision deficit persisted. No fall 2021. Right eye vision loss with subtle pain and visual delgadillo showing inferior temporal quadrant Dr. In both eyes without evidence of optic disc edema. She was treated with high-dose steroids with improvement in color vision, but definite persisted. She had prior unremarkable brain and spinal cord imaging 2013 with exception of tortuous optic nerves. Repeat MRI scan of brain and orbits in March 2020 was normal. She had extensive negative diagnostic evaluationincluding NMO and MOG Ab evaluation x 2, lumbar puncture with CSF evaluation with normal opening pressure, normal cell count, protein, glucose, negative oligoclonal bands, negative CSF TONI, negative SHITAL, ANCA, ESR, CRP, antiphospholipid antibodies. She was most recently seen by [facility] rheumatology, Dr. Reddy and Dr. Corado, for consideration of systemic rheumatological disease. There was no clinical or laboratory evidence of a rheumatological disease. Today, Pradeep reports that her initial episode of vision loss occurred in 2012- 2013 when she started to bump into objects to her L. When she checked her vision she noticed decreased vision in her L eye in the temporal field. She was seen by ophthalmolgy and diagnosed with optic neuritis and treatedwith steroids with some initial improvement, but significant VF loss. She may have had additional recurrences of the L eye from [id number] that were mild and occurred with concurrent fatigue and jointpain. Then in 2018 she noted new onset of decreased vision in the R eye in the inferior temporal quadrant. She was again seen by ophthalmology and established care with Dr. Taylor. She was treated with steroids with possible improvement, but had persistent VF deficit. She was seen by Dr. Benoit (neuro-ophthalmology) at [facility] and was diagnosed with recurrent bilateral optic neuritis. The diagnosis of CRION was discussed (notes not available). She had a recurrent attack in the R eye in 2020 with mild worsening of VF deficit. She reports having OCTs with evidence of RNFL thinning. She was most recently seen by Ronda Santiago OD at [facility]. She does not report any additional neurological symptoms. There is no family history of vision loss. There is family history of lupus in her sister and strokes in a maternal grandmother and maternal aunt - both of whom also had T2DM. She denies any history of additional neurological symptoms of subacute onset lasting more than 24 hours including: double vision, hemiface/arm/leg/hemibody numbness or weakness, or bilateral LE numbness or weakness. Current Medications: reviewed and updated in EMR Past Medical History: Medical History - Hospitalizations - Surgeries Past Medical History: Diagnosis Date ??? Migraine ??? Optic neuropathy, bilateral Past Surgical History: Procedure Laterality Date ??? HYSTERECTOMY 2013 Family Medical History: family history is not on file. Social History: Pradeep Brady lives with and 2 children. 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 Smoking: never; Alcohol: occasional, Illicit drugs: never Physical Examination Patient Vitals for the past 24 hrs: Pulse BP 07/09/22 0853 (!) 101 113/77 She was alert and oriented to person, place, and time with normal language, attention and concentration, recent and remote memory, praxis, and intellectual function. Mood was euthymic. Affect was congruent. Visual acuity was 20/15 OD, 20/15 OS with contacts. No red desaturation was noted bilaterally. Visual field deficit in OS and OD inferior and temporal quadrant, worse on the L than R. Pupils were 4 mm and briskly reactive OU to 2 mm without a relative afferent pupillary defect. Funduscopic examination notable for optic disc pallor worse on the L than R. Ocular ductions were full without nystagmus. Facial sensation was normal. Muscles of facial expression moved normally. Hearing was normal. There was no dysarthria. Motor tone was normal. There was no pronator drift. 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 No dysmetria with tbwfyg-vc-brmo testing bilaterally. Finger tapping was rapid and accurate bilaterally. Standard gait was normal. She was able to tandem walk. REVIEW OF IMAGING STUDIES: report only MRI brain: without and with contrast Date: 04/03/2020 - TECHNIQUE: MRI of the brain and orbits without and with contrast. 12 mL intravenous dotarem. FINDINGS: Ordonez and white matter demonstrate normal signal intensity pattern. There is no evidence of any intracranial mass or mass effect. Ventricles are within normal limits in overall size and configuration and there is no evidence of midline shift. No ??hemorrhage. No abnormal extra-axial fluid collection is present. No evidence of acute infarction.Vascular structures as covered demonstrate a normal flow void. Postcontrast enhanced imaging demonstrates no evidence of abnormal enhancement throughout the brain. Region of the craniocervical junction is normal. There is a partially empty sella. Paranasal sinuses and mastoid air cells??are clear. Evaluation of the orbits demonstrates the ocular [...] is no flattening of the optic discs. IMPRESSION: Normal MRI examination of the brain and orbits with and without contrast enhancement. MRI cervical and thoracic spine wo contrast 04/14/2020: Spinal cord: The cervical and thoracic spinal cord is of normal caliber and signal intensity. The conus terminates at a normal level. No findings to indicate demyelination or an inflammatory process in the spinal cord. Soft tissues: No concerning findings seen in the cervical or included thoracic soft tissues. IMPRESSION: No abnormality seen in the spinal cord. Assessment: ICD-10-CM 1. Bilateral optic neuropathy H46.9 MRI Brain wwo Contrast (Generic) MRI Orbit wwo Contrast Referral to Ophthalmology Pradeep Brady is a 46 y.o. woman with recurrent episodes of VF deficit with associated red desaturation and evidence of optic nerve injury. She has had extensive diagnostic evaluation previously without etiology (see above). I think that there is a strong possibility that this is chronic relapsing inflammatory optic neuropathy (CRION). However I am concerned about other potential etiologies giventhe symmetry of VF deficit and lack of any positive inflammatory markers. I am going to refer her to Dr. Medrano ( Neuro-ophthalmology) for repeat neuro-ophthalmological evaluation - last seenby Dr. Benoit at [facility] in 2020. If no alternative diagnosis can be made, we discussed starting [facility] ept. Her clinical presentation is not consistent with MS Diagnostic Plan: 1. Repeat MRI brain and orbits wwo conrast 2. Will obtain prior MRI brain from [facility] 3. Will obtain prior records from [facility] 4. Referral to Neuro-ophthalmology Follow-Up: 2-3 months via telemedicine Thank you for allowing us to participate in [facility]. If you have questions or concerns please do not hesitate to call our clinic at [phone]. Miguel Angel Blackman III, MD [facility] Department of Neurology [facility] [employer] [address] P F More than 50% of this 45 minute yqao-yk-gene interaction was spent in counseling on diagnosis, prognosis, and medication and symptom management. An additional 17 minutes was spent in review of prior records. 10:20 AM 07/09/2022 documented in this encounter Plan of Treatment Upcoming Encounters Date Type Department Care Team (Late st Contact Info) Description 06/16/2024 8:40 AM EST Appointment Mammography/[place] [phone] Radha Fernandez MD [address] [place] [id number] 08/10/2024 9:30 AM EDT [place] [address] Miguel Angel Blackman III, MD [facility] [place] [address] Scheduled Referrals Name Type Priority Associated Diagnoses Order Schedule Referral to Ophthalmology Outpatient Referral Routine Bilateral optic neuropathy Ordered: 07/09/2022 documented as of this encounter Results * MRI Orbit wwo Contrast (08/03/2022 11:38 AM EDT) Anatomical Region Laterality Modality Head Magnetic Resonan ce Impressions 08/04/2022 1:33 PM EDT 1. ??Mild tortuosity and prominence of the optic nerve sheath and subarachnoid space around the optic nerves, potentially of no clinical significance. 2. ??There is no abnormal signal or enhancement of the optic nerves, chiasm or optic tracts. 3. ??Normal MRI of the brain. I have personally reviewed the image(s) and the resident's interpretation and agree with the findings, Herber Mcdaniel DO at 08/04/2022 1:33 PM Thank you for letting us participate in the care of this patient. ??If you are a health care provider and have any questions regarding this report, please contact the number below. ??For patients who have questions please contact the health care team coordinator scheduler that requested your imaging first. ? Electronically signed by: Herber Mcdaniel DO, [facility] ??([phone]), at 08/04/2022 1:33 PM Narrative 08/04/2022 1:33 PM EDT EXAMINATION: MRI BRAIN WWO CONTRAST (GENERIC), MRI ORBIT WWO CONTRAST CLINICAL HISTORY: Optic neuritis suspected recurrent optic neuritis vs optic neuropathy TECHNIQUE: MRI of the brain and orbits was performed before and after the intravenous administration of 11cc Dotarem. COMPARISON: None available FINDINGS: BRAIN: BRAIN PARENCHYMA: There is no [...] NERVES AND BRAINSTEM: Normal. No abnormal enhancement. Procedure Note Herber Mcdaniel DO - 08/04/2022 EXAMINATION: MRI BRAIN WWO CONTRAST (GENERIC), MRI ORBIT WWO CONTRAST CLINICAL HISTORY: Optic neuritis suspected recurrent optic neuritis vsoptic neuropathy TECHNIQUE: MRI of the brain and orbits was performed before and after theintravenous administration of 11cc Dotarem. COMPARISON: None available FINDINGS: BRAIN: BRAIN PARENCHYMA: There is no diffusion weighted or susceptibilityweighted signal abnormality.. No intracranial mass effect. There is no abnormalsignal intensity or enhancement of the brain parenchyma . VENTRICLES/EXTRA-AXIAL SPACES: No hydrocephalus or extra-axial fluid collections. There is no pathologic meningeal signal or enhancement. FLOW VOIDS: Dominant/central intracranial vascular structures appearpatent with maintained flow voids on T2-weighted sequence. There is no suggestion of significant transverse dural venous sinus stenosis. There is mild concavity/depression of superior margin of the adenohypophysis, withoutempty sella appearance. EXTRACRANIAL STRUCTURES: There are no osseous or extracranial softtissue lesions identified. No evidence of significant inflammatory sinonasal ormastoid disease. Minimal mucosal thickening noted of the maxillary antra. ORBITS: SOFT TISSUES: There is no abnormality of the orbital soft tissues,including the globes. There is no abnormal signal or enhancement identified involving the opticnerve sheath complex. There is mild prominence and tortuosity of the opticnerve sheath, potentially of no significance. Optic chiasm and tracts arenormal. OSSEOUS STRUCTURES AND CAVERNOUS SINUSES: Normal. CRANIAL NERVES AND BRAINSTEM: Normal. No abnormal enhancement. IMPRESSION 1. Mild tortuosity and prominence of the optic nerve sheath andsubarachnoid space around the optic nerves, potentially of no clinical significance. 2. There is no abnormal signal or enhancement of the optic nerves, chiasmor optic tracts. 3. Normal MRI of the brain. I have personally reviewed the image(s) and the resident's interpretationand agree with the findings, Herber Mcdaniel DO at 08/04/2022 1:33 PM Thank you for letting us participate in the care of this patient. If youare a health care provider and have any questions regarding this report,please contact the number below. For patients who have questions please contactthe health care team coordinator scheduler that requested your imaging first. Electronically signed by: Herber Mcdaniel DO [facility]([phone]), at 08/04/2022 1:33 PM Miguel Angel Blackman III, MD [facility] [place] MRI ORDERABLE S * MRI Brain wwo Contrast (Generic) (08/03/2022 11:38 AM EDT) Anatomical Region Laterality Modality Head Magnetic Resonan ce Impressions 08/04/2022 1:33 PM EDT 1. ??Mild tortuosity and prominence of the optic nerve sheath and subarachnoid space around the optic nerves, potentially of no clinical significance. 2. ??There is no abnormal signal or enhancement of the optic nerves, chiasm or optic tracts. 3. ??Normal MRI of the brain. I have personally reviewed the image(s) and the resident's interpretation and agree with the findings, Herber Mcdaniel DO at 08/04/2022 1:33 PM Thank you for letting us participate in the care of this patient. ??If you are a health care provider and have any questions regarding this report, please contact the number below. ??For patients who have questions please contact the health care team coordinator scheduler that requested your imaging first. ? Electronically signed by: Herber Mcdaniel DO [facility] ??([phone]), at 08/04/2022 1:33 PM Narrative 08/04/2022 1:33 PM EDT EXAMINATION: MRI BRAIN WWO CONTRAST (GENERIC), MRI ORBIT WWO CONTRAST CLINICAL HISTORY: Optic neuritis suspected recurrent optic neuritis vs optic neuropathy TECHNIQUE: MRI of the brain and orbits was performed before and after the intravenous administration of 11cc Dotarem. COMPARISON: None available FINDINGS: BRAIN: BRAIN PARENCHYMA: There is no [...] NERVES AND BRAINSTEM: Normal. No abnormal enhancement. Procedure Note Herber Mcdaniel, DO - 08/04/2022 EXAMINATION: MRI BRAIN WWO CONTRAST (GENERIC), MRI ORBIT WWO CONTRAST CLINICAL HISTORY: Optic neuritis suspected recurrent optic neuritis vsoptic neuropathy TECHNIQUE: MRI of the brain and orbits was performed before and after theintravenous administration of 11cc Dotarem. COMPARISON: None available FINDINGS: BRAIN: BRAIN PARENCHYMA: There is no diffusion weighted or susceptibilityweighted signal abnormality.. No intracranial mass effect. There is no abnormalsignal intensity or enhancement of the brain parenchyma . VENTRICLES/EXTRA-AXIAL SPACES: No hydrocephalus or extra-axial fluid collections. There is no pathologic meningeal signal or enhancement. FLOW VOIDS: Dominant/central intracranial vascular structures appearpatent with maintained flow voids on T2-weighted sequence. There is no suggestion of significant transverse dural venous sinus stenosis. There is mild concavity/depression of superior margin of the adenohypophysis, withoutempty sella appearance. EXTRACRANIAL STRUCTURES: There are no osseous or extracranial softtissue lesions identified. No evidence of significant inflammatory sinonasal ormastoid disease. Minimal mucosal thickening noted of the maxillary antra. ORBITS: SOFT TISSUES: There is no abnormality of the orbital soft tissues,including the globes. There is no abnormal signal or enhancement identified involving the opticnerve sheath complex. There is mild prominence and tortuosity of the opticnerve sheath, potentially of no significance. Optic chiasm and tracts arenormal. OSSEOUS STRUCTURES AND CAVERNOUS SINUSES: Normal. CRANIAL NERVES AND BRAINSTEM: Normal. No abnormal enhancement. IMPRESSION 1. Mild tortuosity and prominence of the optic nerve sheath andsubarachnoid space around the optic nerves, potentially of no clinical significance. 2. There is no abnormal signal or enhancement of the optic nerves, chiasmor optic tracts. 3. Normal MRI of the brain. I have personally reviewed the image(s) and the resident's interpretationand agree with the findings, Herber Mcdaniel DO at 08/04/2022 1:33 PM Thank you for letting us participate in the care of this patient. If youare a health care provider and have any questions regarding this report,please contact the number below. For patients who have questions please contactthe health care team coordinator scheduler that requested your imaging first. Electronically signed by: Herber Mcdaniel DO, [facility]([phone]), at 08/04/2022 1:33 PM Miguel Angel Blackman III, MD [facility] MRI ORDERABLE S documented in this encounter Visit Diagnoses Diagnosis Bilateral optic neuropathy Other optic neuritis Bilateral optic neuropathy Other optic neuritis documented in this encounter
--- OUTSIDE RECORDS SUMMARY | 2024-04-18 16:36 | XMS_ITS | Encounter Summary ---
Author Organization [facility] [address] Care Team Providers Care Marketing Analytics Manager Name Role Phone Unavailable Primary Care Provider Unavailabl e Encounter Details Date Type Department Care Team (Late st Contact Info) Description 04/24/2022 9:31 AM EST - 04/24/2022 9:51 AM EST Hospital Encounter XRay at [address] [place] [address] Rose Corado, [facility] [place] [address] Low back pain, non-specific Discharge Disposition: Home Social History Tobacco Use [...] 06/16/2024 8:40 AM EST Appointment Mammography/DXA at [facility] [place] [address] Radha Fernandez MD [address] [place], [place] [address] 08/10/2024 9:30 AM EDT [place] [address] Miguel Angel Blackman III, MD [facility] [place] [address] documented as of this encounter Procedures Procedure Name Priority Date/Time Associated Diagnosis Comments XR SACROILIAC JOINTS (GENERIC) Routine 04/24/2022 9:44 AM EST Low back pain, non-specific documented in this encounter Results * XR Sacroiliac Joints (GENERIC) (04/24/2022 9:44 [...] who have questions please contact the health home care chaplain that requested your imaging first. ? Narrative [...] patients who have questions please contactthe health home care chaplain that requested your imaging first. Rose Corado DO IMG DX ORDERABLES documented in this encounter Visit Diagnoses Diagnosis Low back pain, non-specific documented in this encounter
--- OUTSIDE RECORDS SUMMARY | 2024-04-18 16:36 | XMS_ITS | Encounter Summary ---
Author Organization [facility] Address [facility] [place] [address] Care Team Providers Care Milk Pasteurizer Name Role Phone Becca Lewis MD Primary Care Provider [phone] Reason for Referral * Diagnostic Test (Routine) - Closed Specialty Diagnoses / Procedures Referred By Contac t Referred To Contact Radiology Diagnoses Bilateral optic neuropathy Procedures CT Chest wo Contrast (Generic) Miguel Angel Blackman III, MD [facility] [place] [address] [facility] [place] [address] Referral ID Status Reason Start Date Expiration Date V isits Requested Visits Authorized [id number] Closed Specialty Service Requested 09/09/2022 03/12/2024 1 1 Encounter Details Date Type Department Care Team (Latest Contact Info) Description 09/09/2022 9:30 AM EDT TH Visit (TeleHealth) [place] [phone] Miguel Angel Blackman III, MD [facility] [place] [address] Bilateral optic neuropathy; Migraine without aura and without [...] * Miguel Angel Blackman III, MD - 09/09/2022 9:30 AM EDT [facility] Telemedicine Follow-Up Visit (home) I saw Pradeep Brady via telemedicine today in follow-up for history of optic neuritis/neuropathy. Below is my progress note with impression and plan. Please do not hesitate to call with any questions. Appointment time: 9:38 -10:05 (total 27 minutes) DISEASE SUMMARY: Principal neurologic diagnosis: bilateral optic neuritis/neuropathy Onset: CSF (2019): normal, negative OCBs, normal TOIN Disease course at onset: relapsing Current disease course: relapsing Relapses: ?? - L eye ?? [id number] - multiple episodes of vision deficit in L eye with concurrent joint pain and fatigue ?? 2019 - R eye Treatment History Previous disease therapies: none Current disease therapies: n/a Imaging History Most recent MRI brain: 08/03/2022 (brain and orbit, unremarkable) Most recent MRI cervical spine: 04/14/2020 Most recent MRI thoracic spine: 04/14/2020 Interval History: Pradeep Brady was last seen in clinic in consultation on 07/09/2022. At that time reviewed her clinical course, which is summarized above. Her neurological examination was notable for normal visual acuity, but with significant visual field deficit on the left and right, no RAPD, and optic disc pallor worse on the left than the right. The rest of her neurological examination was unremarkable. I ordered a repeat MRI scan of her brain and orbit. Today, Pradeep does not report any new neurological symptoms, or worsening of vision. We discussed transfer of NurTec prescription to me as her insurance will not allow a non-neurologist to prescribe. She has longstanding history of migraine headaches. Headache onset is typically in the occipital-cervical region, worse on the right than the left and radiating up over the top of the head and into the right jew. Headache is described as stabbing with associated light sensitivity and nausea (notsignificant sound sensitivity). Headaches typically last hours if not days untreated. Even with Nurtec the headache may last a few hours, but severity of headache dramatically improves. She has triedImitrex in the past as well as other headache treatments without improvement. Currently, headache frequency is approximately 2 days/week. Her most significant trigger is stress. Her headache never wakes her from sleep. She denies any aura. She is very happy with Nurtec, which she may take 2-3 times per month for her more severe headaches. Current Medications: reviewed and updated in EMR Physical Examination VS were not able to be obtained due to patient location. SHe was alert and oriented to person, place, and time with normal language, attention and concentration, recent and remote memory, praxis, and intellectual function. Mood was euthymic. Affect was congruent. Ocular ductions were full without nystagmus. Muscles of facial expression moved normally. Hearing was grossly normal. There was no dysarthria. REVIEW OF IMAGING STUDIES: I reviewed the following studies: MRI brain and orbit: without and with contrast Date: 08/03/2022 IMPRESSION 1. Mild tortuosity and prominence of the optic nerve sheath and subarachnoid space around the optic nerves, potentially of no clinical significance. 2. There is no abnormal signal or enhancement of the optic nerves, chiasm or optic tracts. 3. Normal MRI of the brain. Assessment: ICD-10-CM 1. Bilateral optic neuropathy H46.9 CT Chest wo Contrast (Generic) Pradeep Brady is a 47 y.o. 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 She has had extensive prior evaluation as noted above. Most recent MRI scan of her brain andorbit on 08/03/2022 was unremarkable. On the differential diagnosis would include chronic relapsing inflammatory optic neuropathy and sarcoidosis. We will obtain CT scan of the chest for further evaluation (we discussed radiation exposure). 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 We discussed that there are no FDA approved therapies for this condition. We reviewed potential treatment with CellCept (mycophenolate) with plan for treatment of at least 1 to 2 years with frequent repeat ophthalmologically evaluation to look for vision stability. She will consider this option after we obtain CT scan of the chest. She also has migraine headaches without aura, bordering on chronic migraine. We discussed initiation of a preventative medication. She does not have any significant sleep disturbance, blood pressuresrun low, and she has no depression or anxiety. I would be reluctant to start Topamax given her vision deficit and undetermined etiology of vision loss (glaucoma has been postulated in the past). We discussed starting Effexor, but there is an interaction with her Concerta (serotonin syndrome). She notes that better treatment of her migraine headaches would be more important than treatment of her ADD, but will consider tapering off of Concerta and starting Effexor (decision not made today). I certainly can prescribe Nurtec for migraine rescue. Treatment Plan: 1. Recurrent optic neuritis: Future consideration of starting CellCept 500 mg 2 times daily with plan to titrate to 1000 mg 2 times daily 2. Migraine headaches: 1. Refill NurTec 2. Consideration of starting a migraine preventative (such as Effexor) Diagnostic Plan: 1. CT scan chest for additional evaluation of sarcoidosis Follow-up: 6 weeks via telemedicine Thank you for allowing us to participate in [facility]. If you have questions or concerns please do not hesitate to call our clinic at [phone]. Miguel Angel Blackman III, MD [facility] Department of Neurology [facility] [address] More than 50% of this 27 minute telemedicine appointment was spent in counseling on diagnosis, prognosis, and medication and symptom management. An additional 5 minutes was spent in review of medicalrecords. 11:01 AM 09/09/2022 documented in this encounter Plan of Treatment Upcoming Encounters Date Type Department Care Team (Late st Contact Info) Description 06/16/2024 8:40 AM EST Appointment Mammography/[place] [phone] Radha Fernandez MD [address] [place] [address] 08/10/2024 9:30 AM EDT Office [place] [address] Miguel Angel Blackman III, MD [facility] [place] [address] documented as of this encounter Results * CT Chest wo Contrast (Generic) (09/16/2022 2:56 PM EDT) Anatomical Region Laterality Modality Chest Computed Tomogra phy Impressions 09/16/2022 3:55 PM EDT No findings in the chest to suggest sarcoidosis I have personally reviewed the image(s) and the resident's interpretation and agree with the findings, Phani Alonzo MD at 09/16/2022 3:55 PM Thank you for letting us participate in the care of this patient. ??If you are a health care provider and have any questions regarding this report, please contact the number below. ??For patients who have questions please contact the health career based intervention coordinator that requested your imaging first. ? Narrative 09/16/2022 3:55 PM EDT EXAMINATION: CT CHEST WO CONTRAST (GENERIC) CLINICAL HISTORY: recurrent optic neuritis, concern for sarcoidosis TECHNIQUE: Helical CT of the chest without intravenous contrast administration. Thin-section reconstructions as well as coronal and sagittal reformatted images were generated. COMPARISON: None FINDINGS: Pulmonary parenchyma: No lung nodules. Airways: No central endobronchial abnormality. Pleura: No effusion. Lymph nodes: No mediastinal or hilar lymphadenopathy. Heart and vasculature: Normal size of the heart. No significant pericardial effusion. Normal caliber of the thoracic aorta. Upper abdomen: No significant findings. Skeletal structures: No aggressive bone lesions. Procedure Note Phani Alonzo MD - 09/16/2022 EXAMINATION: CT CHEST WO CONTRAST (GENERIC) CLINICAL HISTORY: recurrent optic neuritis, concern for sarcoidosis TECHNIQUE: Helical CT of the chest without intravenous contrastadministration. Thin-section reconstructions as well as coronal and sagittal reformattedimages were generated. COMPARISON: None FINDINGS: Pulmonary parenchyma: No lung nodules. Airways: No central endobronchial abnormality. Pleura: No effusion. Lymph nodes: No mediastinal or hilar lymphadenopathy. Heart and vasculature: Normal size of the heart. No significantpericardial effusion. Normal caliber of the thoracic aorta. Upper abdomen: No significant findings. Skeletal structures: No aggressive bone lesions. IMPRESSION No findings in the chest to suggest sarcoidosis I have personally reviewed the image(s) and the resident's interpretationand agree with the findings, Phani Alonzo MD at 09/16/2022 3:55 PM Thank you for letting us participate in the care of this patient. If youare a health care provider and have any questions regarding this report,please contact the number below. For patients who have questions please contactthe health career based intervention coordinator that requested your imaging first. Miguel Angel Blackman III, MD IMG CT ORDERABLES documented in this encounter Visit Diagnoses Diagnosis Bilateral optic neuropathy Other optic neuritis Migraine without aura and without status migrainosus, not intractable Migraine without aura, without mention of intractable migraine without mention of status migrainosus Bilateral optic neuropathy Other optic neuritis documented in this encounter Care Teams Milk Pasteurizer Relationship Specialty Start Date End Date Becca Lewis MD PCP - General Family Medicine 09/09/22 01/18/23 documented as of this encounter
--- OUTSIDE RECORDS SUMMARY | 2024-04-18 16:36 | XMS_ITS | Encounter Summary ---
Author Organization [facility] Address [facility] [place] [address] Care Team Providers Care Porter Used Car Lot Name Role Phone Becca Lewis MD Primary Care Provider [phone] Reason for Referral * Diagnostic Test (Routine) - Closed Specialty Diagnoses / Procedures Referred By Contac t Referred To Contact Radiology Diagnoses Bilateral optic neuropathy Procedures CT Chest wo Contrast (Generic) Miguel Angel Blackman III, MD [facility] [place] [address] [facility] [place] [address] Referral ID Status Reason Start Date Expiration Date V isits Requested Visits Authorized [id number] Closed Specialty Service Requested 09/09/2022 03/12/2024 1 1 Reason for Visit * Diagnostic Test (Routine) - Closed Specialty Diagnoses / Procedures Referred By Contac t Referred To Contact Radiology Diagnoses Bilateral optic neuropathy Procedures CT Chest wo Contrast (Generic) Miguel Angel Blackman III, MD [facility] [place] [address] [facility] [place] [address] Referral ID Status Reason Start Date Expiration Date V isits Requested Visits Authorized [id number] Closed Specialty Service Requested 09/09/2022 03/12/2024 1 1 Encounter Details Date Type Department Care Team (Latest Contact Info) Description 09/16/2022 2:37 PM EDT - 09/16/2022 11:59 PM EDT Hospital Encounter CT Scan at [place] [phone] Miguel Angel Blackman III, MD [facility] [place] [address] Bilateral optic neuropathy Discharge Disposition: Home Social History Tobacco Use [...] Sig Dispensed Refills Start Date End Date EPINEPHrine 0.3 mg/0.3 mL Auto-Injector epinephrine 0.3 mg/0.3 mL injection, auto-injector methylphenidate (CONCERTA) 54 mg Tablet Extended Rel 24 hr Take 54 mg by mouth every morning. venlafaxine XR (Effexor-XR) 37.5 mg ER 24 hr capsuleIndications:Migr marie without aura and without status migrainosus, not intractable Take 1 capsule by mouth daily for 30 days. 30 capsule 3 09/11/2022 10/11/2022 rimegepant (Nurtec ODT) 75 mg disintegrating tabletIndications:Migra ine without aura and without status migrainosus, not intractable Take 1 tablet by mouth as needed for up to 30 days. 10 tablet 5 09/10/2022 10/10/2022 documented as of this encounter Plan of Treatment Upcoming Encounters Date Type Department Care Team (Late st Contact Info) Description 06/16/2024 8:40 AM EST Appointment Mammography[place] [address] Radha Fernandez MD [address] [place] [address] 08/10/2024 9:30 AM EDT [place] [address] Miguel Angel Blackman III, MD [facility] [place] [place] [address] documented as of this encounter Procedures Procedure Name Priority Date/Time Associated Diagnosis Comments CT CHEST WO CONTRAST (GENERIC) Routine 09/16/2022 2:56 PM EDT Bilateral optic neuropathy documented in this encounter Results * CT Chest wo [...] have questions please contact the health care navigator that requested your imaging first. ? Electronically signed by: Phani Alonzo MD, [facility] ??([phone]), at 09/16/2022 3:55 PM Narrative 09/16/2022 3:55 PM EDT EXAMINATION: CT [...] who have questions please contactthe health care navigator that requested your imaging first. Electronically signed by: Phani Alonzo MD, [facility]([phone]), at 09/16/2022 3:55 PM Miguel Angel Blackman III, MD IM CT ORDERABLES documented in this encounter Visit Diagnoses Diagnosis Bilateral optic neuropathy Other optic neuritis documented in this encounter Care Teams Porter [employer] Car Lot Relationship Specialty Start Date End Date Becca Lewis MD PCP - General Family Medicine 09/09/22 01/18/23 documented as of this encounter
--- OUTSIDE RECORDS SUMMARY | 2024-04-18 16:36 | XMS_ITS | Encounter Summary ---
Author Organization [facility] Address [facility] [place] [address] Care Team Providers Care Automation Qa Tester Name Role Phone Becca Lewis MD Primary Care Provider [phone] Encounter Details Date Type Department Care Team (Latest Contact Info) Description 10/30/2022 Travel Social History Tobacco Use Types Packs/Day [...] 06/16/2024 8:40 AM EST Appointment Mammography/[place] [phone] Radha Fernandez MD [address] [place] [address] 08/10/2024 9:30 AM EDT Office [place] [phone] Miguel Angel Blackman III, MD [facility] [place] [address] documented as of this encounter Visit Diagnoses Not on filedocumented in this encounter Care Teams Automation Qa Tester Relationship Specialty Start Date End Date Becca Lewis MD PCP - General Family Medicine 09/09/22 01/18/23 documented as of this encounter
--- OUTSIDE RECORDS SUMMARY | 2024-04-18 16:36 | XMS_ITS | Encounter Summary ---
Author Organization [facility] [place] [address] Care Team Providers Care Calibration Tester Name Role Phone Becca Lewis MD Primary Care Provider [phone] Encounter Details Date Type Department Care Team (Late st Contact Info) Description 09/16/2022 [place] [address] Miguel Angel Blackman III, MD [facility] [place] [address] Social History Tobacco Use Types Packs/Day Years [...] Telephone Encounter - Annamarie Kuo RN - 10/03/2022 11:43 AM EDT Per Iesha Manuel PA - covering for Dr. Blackman: She is on such a baby dose of Venlafaxine I am surprised it is resulting in that much fatigue the following day. I don't think we can go lower - so she could: 1. Tough it out and see if fatigue improves with continued usage 2. Have an appt to consider alternatives. KG I phoned pt and reviewed/instructed above. Pt states that she stopped the medication. She states she is feeling better since off of it. She is scheduled for f/u visit in February with and on wait list. Pt instructed to call back for any further changes/concerns. Plan: per above and pt agrees with plan and verbalizes understanding. * Telephone Encounter - Annamarie Kuo RN - 09/16/2022 4:36 PM EDT Pt phoned back and left message on triage line. She stated that she was first taking the effexor at7 pm and then changed the time to 5 pm hoping this would help. She states that the next day after taking the effexor she is very tired. She wanted to update Dr. Blackman and see what he recommends. Plan: message forwarded to Dr. Blackman for review and recommendation. * Telephone Encounter - Annamarie Kuo RN - 09/16/2022 12:54 PM EDT I attempted to phone pt back. There was no answer. Message left on voice mail to call back [phone]. * Telephone Encounter - Annamarie Kuo RN - 09/16/2022 12:51 PM EDT Copied from [facility] #[id number]. Topic: Specialty Dept CRMs - Triage >> Sep 16, 2022 8:44 AM Cole Reddy wrote: Triage Message Specialist: Miguel Angel Blackman III, MD Relationship (if other than patient-full name): patient Symptom: Sleepiness Has patient experienced symptom before no If patient has experienced symptom before, when was the last time this occurred N/A Is patient currently having symptom yes When did symptom begin After starting use of Effexor-XR. Additional Comments: Patient states that Effexor-XR is making patient sleepy. Patient has tried taking medication at a different point in the day, but is still sleepy all the time. Patient would liketo discuss this medication. documented in this encounter Plan of Treatment Upcoming Encounters Date Type Department Care Team (Late st Contact Info) Description 06/16/2024 8:40 AM EST Appointment Mammography/[place] [phone] Radha Fernandez MD [address] [place] [address] 08/10/2024 9:30 AM EDT [place] [phone] Miguel Angel Blackman III, MD [facility] [place] [address] documented as of this encounter Visit Diagnoses Not on filedocumented in this encounter Care Teams Calibration Tester Relationship Specialty Start Date End Date Becca Lewis MD PCP - General Family Medicine 09/09/22 01/18/23 documented as of this encounter
--- OUTSIDE RECORDS SUMMARY | 2024-04-18 16:36 | XMS_ITS | Encounter Summary ---
Author Organization [facility] Address [facility] [place] [address] Care Team Providers Care Jowl Trimmer Name Role Phone None Primary Care Provider Unavailabl e Reason for Referral * Diagnostic Test (Routine) - Closed Specialty Diagnoses / Procedures Referred By Contac t Referred To Contact Radiology Diagnoses Bilateral optic neuropathy Procedures MRI Orbit wwo Contrast Miguel Angel Blackman III, MD [facility] [place] [address] [place] [address] Referral ID Status Reason Start Date Expiration Date V isits Requested Visits Authorized [id number] Closed Specialty Service Requested 07/09/2022 01/10/2024 1 1 * Diagnostic Test (Routine) - Closed Specialty Diagnoses / Procedures Referred By Contac t Referred To Contact Radiology Diagnoses Bilateral optic neuropathy Procedures MRI Brain wwo Contrast (Generic) Miguel Angel Blackman III, MD [facility] [place] [address] [place] [address] Referral ID Status Reason Start Date Expiration Date V isits Requested Visits Authorized [id number] Closed Specialty Service Requested 07/09/2022 01/10/2024 1 1 Reason for Visit * Diagnostic Test (Routine) - Closed Specialty Diagnoses / Procedures Referred By Contac t Referred To Contact Radiology Diagnoses Bilateral optic neuropathy Procedures MRI Orbit wwo Contrast Miguel Angel Blackman III, MD [facility] [place] [address] [facility] [place] [address] Referral ID Status Reason Start Date Expiration Date V isits Requested Visits Authorized [id number] Closed Specialty Service Requested 07/09/2022 01/10/2024 1 1 Encounter Details Date Type Department Care Team (Latest Contact Info) Description 08/03/2022 10:02 AM EDT - 08/03/2022 11:59 PM EDT [place] [address] Miguel Angel Blackman III, MD [facility] [place] [address] Bilateral optic neuropathy Discharge Disposition: Home Social [...] 06/16/2024 8:40 AM EST Appointment Mammography/[place] [address] Radha Fernandez MD [address] [place] [id number] 08/10/2024 9:30 AM EDT [place] [address] Miguel Angel Blackman III, MD [facility] [place] [address] documented as of this encounter Procedures Procedure Name Priority Date/Time Associated Diagnosis Comments MRI ORBIT WWO CONTRAST Routine 08/03/2022 11:38 AM EDT Bilateral optic neuropathy MRI BRAIN WWO CONTRAST (GENERIC) Routine 08/03/2022 11:38 AM EDT Bilateral optic neuropathy documented in this encounter Results * MRI Orbit wwo [...] interpretation and agree with the findings, Herber Mcdaniel, DO at 08/04/2022 1:33 PM Thank you for letting us participate in the care of this patient. ??If you are a health care provider and have any questions regarding this report, please contact the number below. ??For patients who have questions please contact the health team primary care physician that requested your imaging first. ? Electronically signed by: Herber Mcdaniel DO [facility] ??([phone]), at 08/04/2022 1:33 PM Narrative 08/04/2022 1:33 [...] patients who have questions please contactthe health team primary care physician that requested your imaging first. Electronically signed by: Herber Mcdaniel DO, [facility]([phone]), at 08/04/2022 1:33 PM Miguel Angel Blackman III, MD IMG MRI ORDERABLE S * MRI Brain wwo [...] who have questions please contact the health team primary care physician that requested your imaging first. ? Electronically signed by: Herber Mcdaniel DO, [facility] ??([phone]), at 08/04/2022 1:33 PM Narrative 08/04/2022 1:33 [...] patients who have questions please contactthe health team primary care physician that requested your imaging first. Electronically signed by: Herber Mcdaniel DO, [facility]([phone]), at 08/04/2022 1:33 PM Miguel Angel Blackman III, MD IMG MRI ORDERABLE S documented in this encounter Visit Diagnoses Diagnosis Bilateral optic neuropathy Other optic neuritis documented in this encounter Administered Medications Inactive Administered Medications - up to 3 most recent administrations Medication Order MAR Action Action Date Dose Rate Site gadoterate meglumine (Dotarem) (0.5 mMol/mL) injection solution 0-100 mL 0-100 mL, Intravenous, ONCE PRN, 1 dose, Starting on 08/03/22 at 1139, Until 08/03/22 at 1139, Per Protocol, Radiology Contrast, Routine Given 08/03/2022 11:39 AM EDT 11 mLs documented in this encounter Care Teams Jowl Trimmer Relationship Specialty Start Date End Date None None PCP - General 08/03/22 09/08/22 documented as of this encounter
--- OUTSIDE RECORDS SUMMARY | 2024-04-18 16:36 | XMS_ITS | Encounter Summary ---
Author Organization [facility] Address [facility] [place] [address] Care Team Providers Care Installer Molding And Trim Name Role Phone Curtis Jiang MD Primary Care Provider [phone] Encounter Details Date Type Department Care Team (Latest Contact Info) Description 02/12/2023 Travel Social History Tobacco Use Types Packs/Day [...] 06/16/2024 8:40 AM EST Appointment Mammography/[place] [phone] Radha Fernandez MD [address] [place], [place] [address] 08/10/2024 9:30 AM EDT [place] [address] Miguel Angel Blackman III, MD [facility] [place] [address] documented as of this encounter Visit Diagnoses Not on filedocumented in this encounter Care Teams Installer Molding And Trim Relationship Specialty Start Date End Date Curtis Jiang MD [address] [place] [address] PCP - General Family Medicine 01/19/23 documented as of this encounter
--- OUTSIDE RECORDS SUMMARY | 2024-04-18 16:36 | XMS_ITS | Encounter Summary ---
Author Organization [facility] Address [facility] [place] [address] Care Team Providers Care Track Layer Name Role Phone Curtis Jiang MD Primary Care Provider [phone] Encounter Details Date Type Department Care Team (Late st Contact Info) Description 01/19/2023 8:00 AM EDT [place] [address] Miguel Angel Blackman III, MD [facility] [place] [address] Chronic relapsing inflammatory optic neuropathy Social History [...] Sign Reading Time Taken Comments Blood Pressure 96/69 01/19/2023 8:05 AM EDT Pulse 75 01/19/2023 8:05 AM EDT Temperature 36.1 ??C (97 ??F) 01/19/2023 8:05 AM EDT Respiratory Rate - - Oxygen Saturation 98% 01/19/2023 8:05 AM EDT Inhaled Oxygen Concentration - - Weight 60.8 kg (134 lb) 01/19/2023 8:05 AM EDT Height 166.4 cm (5' 5.5) 01/19/2023 8:05 AM EDT Body Mass Index 21.96 01/19/2023 8:05 AM EDT documented in this encounter Progress Notes * Miguel Angel Blackman III, MD - 01/19/2023 8:00 AM EDT [facility] Follow-up Visit Dear Curtis Jiang MD, I saw Pradeep Brady in clinic today in follow-up for chronic relapsing inflammatory optic neuropathy. Below is my progress note with impression and plan. Please do not hesitate to call with any questions. DISEASE SUMMARY: Principal neurologic diagnosis: ? CRION Onset: 2012 CSF: Normal cell count, protein, glucose, negative oligoclonal bands, negative CSF TONI Serum: NMO/MOG: Negative x2 Negative SHITAL, ANCA, ESR, CRP, and antiphospholipid antibodies Treatment History Previous disease therapies: None Current disease therapies: Mycophenolate (start October 2022) Imaging History Most recent MRI brain: 08/03/2022 Most recent MRI cervical spine: None Most recent MRI thoracic spine: None Interval History: Pradeep was last seen in clinic in October 2022. Prior to that there was concern for possible worseningof visual delgadillo with local events intern. We discussed treatment with mycophenolate (CellCept) including lack of FDA approval for this indication, and safety concerns including aplastic anemia, immunosuppression, transaminitis, and GI side effects. She was in agreement with starting. She has also been referred to [place]. Chang, [facility] [place] for second opinion. Today, Pradeep reports no new or worsening vision changes. She does not report any new neurological symptoms. There may be some improvement in her bilateral knee pain after starting mycophenolate. After starting mycophenolate she reports significant increase in fatigue. However this is also in the context of recent illness and busy work schedule. Current Medications: reviewed and updated in EMR Physical Examination She was alert and oriented to person, place, and time with normal language, attention and concentration, recent and remote memory, praxis, and intellectual function. Mood was euthymic. Affect was congruent. Visual acuity was 20/20(-2) OD, 20/15 (-2) OS with contracts Visual delgadillo: OD: restriction in inferior uatsdin field OS: restriction in inferior uatsdin field. Pupils were 4 mm and briskly reactive OU to 2 mm with a relative afferent pupillary defect on OS. Funduscopic examination was notable for optic disc pallor on L. Ocular ductions were full without nystagmus. Facial sensation was normal. Muscles of facial expression moved normally. Hearing was normal. There was no dysarthria. Standard gait was normal. REVIEW OF LABORATORY STUDIES: 12/03/2022 and 01/09/2023 CBC diff and LFTs - unremarkable Assessment: ICD-10-CM 1. Chronic relapsing inflammatory optic neuropathy H46.8 Pradeep Brady is a 47 y.o. woman with probable chronic relapsing inflammatory optic neuropathy currently on mycophenolate 1000 mg 2 times daily. Visual findings on examination today are relatively stable, but limited by absence of formal visual field testing. She reports significant increase in fatigue after starting mycophenolate. We discussed decreasing mycophenolate dosing to 500 mg 2 times daily. If fatigue has not improved I would recommend stopping until she has consultation appointment with Dr. Chang in early February 2023. If fatigue has improved, she will continue on lower dose of 500 mg 2 times daily. Laboratory evaluation for toxicity to mycophenolate including CBC with differential and LFTs in November and December 2022 were unremarkable. Monitoring Plan: Continue monthly CBC with differential and LFTs Treatment Plan: Decrease mycophenolate to 500 mg 2 times daily from 1000 mg 2 times daily. If no improvement in fatigue recommend stopping. In the future we could consider starting azathioprine (Imuran) Follow-Up: 3 months Thank you for allowing us to participate in Pradeep's healthcare. If you have questions or concerns please do not hesitate to call our clinic at [phone]. Miguel Angel Blackman III, MD [employer] Department of Neurology [facility] [address] P F 8:37 AM 01/19/2023 documented in this encounter Plan of Treatment Upcoming Encounters Date Type Department Care Team (Late st Contact Info) Description 06/16/2024 8:40 AM EST Appointment Mammography[place] [address] Radha Fernandez MD [address] [place] [address] 08/10/2024 9:30 AM EDT [place] [address] Miguel Angel Blackman III, MD [facility] [place] [address] documented as of this encounter Visit Diagnoses Diagnosis Chronic relapsing inflammatory optic neuropathy documented in this encounter Care Teams Track Layer Relationship Specialty Start Date End Date Curtis Jiang MD [address] [place] [address] PCP - General Family Medicine 01/19/23 documented as of this encounter
--- OUTSIDE RECORDS SUMMARY | 2024-04-18 16:36 | XMS_ITS | Encounter Summary ---
Author Organization [facility] Address [facility] [place] [address] Care Team Providers Care Accounting Systems Manager Name Role Phone Becca Lewis MD Primary Care Provider [phone] Reason for Referral * Physical Therapy (Routine) - Closed Specialty Diagnoses / Procedures Referred By Contbobby t Referred To Contact Physical Therapy Diagnoses Recurrent optic neuritis Pain in both knees, unspecified chronicity Pain in right hip Hypermobile joints Jeison Terry MD [facility] [place] [address] [facility] [address] [place] [address] Referral ID Status Reason Start Date Expiration Date V isits Requested Visits Authorized [id number] Closed Evaluate and Treat 10/27/2022 10/27/2023 12 12 Encounter Details Date Type Department Care Team (Late st Contact Info) Description 10/27/2022 1:45 PM EDT Office [place] [address] Jeison Terry MD Pain in both knees, unspecified chronicity (Primary Dx); Recurrent optic neuritis; Pain in right hip; Hypermobile joints Social History Tobacco Use Types Packs/Day Years [...] Sign Reading Time Taken Comments Blood Pressure 102/67 10/27/2022 1:25 PM EDT Pulse 79 10/27/2022 1:25 PM EDT Temperature 36.6 ??C (97.9 ??F) 10/27/2022 1:25 PM ED T Respiratory Rate 12 10/27/2022 1:25 PM EDT Oxygen Saturation 100% 10/27/2022 1:25 PM EDT Inhaled Oxygen Concentration - - Weight 59.9 kg (132 lb) 10/27/2022 1:25 PM EDT Height - - Body Mass Index 21.63 07/09/2022 8:53 AM EDT documented in this encounter Patient Instructions * Patient Instructions* Jeison Terry MD - 10/27/2022 1:45 PM EDT -Recommend physical therapy for hypermobility and joint pains -recommend aquatic exercises for building strength -Recommend voltaren gel for joint pain as needed -Recommend knee compression braces -You can try wearing tights which should help with POTS as well -Follow up with neurology and ophthalmology documented in this encounter Progress Notes * Jeison Terry MD - 10/27/2022 1:45 PM EDT Rheumatology Outpatient Follow Up Visit Note History of Present Illness: Pradeep Brady is a 47 y.o. female with a PMH significant for migraines, ADHD on Concerta who presents today due to concern for bilateral knee pain. Patient accompanied by and daughter today. Patient states around 3-4 weeks back she developed sudden onset pain in her left knee which then went to her right knee. Patient states her knees were not overtly swollen or erythematous but she did experience tenderness to palpation and had difficulty ambulating due to pain (rated 9-10/10 pain). Patient tried ice, advil, and massages which improved her symptoms. Knee pain now mostly improved but still has some mild swelling in the left knee.Patient denies any trauma or aggravating symptoms thatcould have contributed to knee pain. Patient denies pain in other joints but states she has been experiencing right hip pain for several year now and states she feels it is getting worse due to overcompensation. Patient states her last episode of knee pain/swelling was about 1 year back. Interestingly, patient states during the episodes of joint flares she has additionally experiences worsening of her optic neuritis. Patient has contacted her community integration specialist and is planned for an eye examination in the next few days and in addition she has contacted who is considering Cellcept. Patient had a general eye examination which did not show inflammation but she will have visual field testing in a few days. Neurology ordered Ct scan of lungs as sarcoidosis was a consideration however imaging unremarkable for sarcoidosis or other lung abnormalities . Of note, patient was last evaluated on 01/[address] Reddy and for concern of optic neuritis and inconclusive autoimmune workup in the past. Patient was noted to have hypermobility and aDEXA scan and TTE were ordered which were unremarkable. SI joint imaging with mild degeneration in right SI joint but no evidence of sacroiliitis. Patient reports symptoms consistent with POTS and additionally reports IBS. Patient denies fevers, chills, nausea, vomiting, shortness of breath, mucosal ulcers, skin rashes. Care team: -PCP: -: [facility] -Neurology: (patient planning to possibly start cellcept) for optic neuritis ROS (positive in bold): General fevers, chills, night sweats, weight loss HEENT oral ulcers, dry eyes, dry mouth, red/itchy eyes, eye pain, vision changes Card chest pain, palpitations Pulm SOB, cough, [place] abd pain, nausea, vomiting, diarrhea, constipation, dysphagia, reflux dysuria, hematuria, genital ulcers, changes to color of urine MS arthritis, arthralgia, muscle aches Neuro weakness, numbness, tingling, OLVERA/migraines Skin Raynaud's, rash (on face, last time in early 20s), hair loss, photosensitivity Family Hx: Sister has SLE Social Hx: Never smoker EtOH: socially No illicit drug use Son was delivered 4.5 weeks early but is otherwise healthy. Also has a healthy daughter. Physical Examination: BP 102/67 (BP Location (NBP): Left arm, Patient Position: Sitting, BP Cuff Sizes: Adult (25-34 cm)) Pulse 79 Temp 36.6 ??C (97.9 ??F) (Temporal) Resp 12 Wt 59.9 kg (132 lb) SpO2 100% BMI 21.63 kg/m?? General: Well appearing, NAD HEENT: Mucous [...] results in low back pain bilaterally Knees: Mild effusion in left knee>right knee with mild tenderness to palpation; good range of active and passive motion; normal temperature Ankles: FROM, non-tender, no effusion Feet: no [...] negative, flow cytometry no evidence of lymphoma. Composed of only rare heterogeneous T-cells and too few B- cell VDRL CSF negative, TONI CSF 1.4. 03/31/20- [...] scleroderma, negative Cee 1, negativeetich labs-Blackman and SLEEP SCIENTIST antibodies. Double- stranded DNA titer negative. CRP less than 0.34, rheumatoid factor negative. Lyme was tested once was negative. CBC normal. Creatinine normal. CSF: 03/2013-CBC, TONI, culture, cytology, glucose, HSV, Lyme, MS panel, protein labs-all normal. Visual Evoked potentials--02/04/2013-normal study- P100 latency on the left 93.8, [...] not on annually other sequences. Likely artifact. Impression: Pradeep Brady is a 47 y.o. female with a PMH significant for migraines, ADHD on Concerta who presents today due to concern for bilateral knee pain. Patient states she developed sudden onset bilateralknee pain 3-4 weeks back. Patient denies any aggravating factors or involvement of other joints. Patient describes the knee pain as tender to touch and mildly swollen and difficult to weight bear butdenies any overt swelling of joint ,change in temperature, or erythema. Prior autoimmune workup including inflammatory markers has been unrevealing for inflammatory process. Nature of pain does not seem inflammatory and given underlying hypermobility of joints it is likely that patient has swellingfrom her hypermobility. Nevertheless, we will obtain labwork and imaging of hips and knees today. Counseling provided regarding hypermobility/EDS and role of physical therapy/aquatic exercises. In regards to optic neuritis, patient advised to follow up with ophthalmology and neurology. Recommendations: -Will obtain XR hip and XR knee today -Obtain cbc,cmp,esr,crp -Recommend physical therapy for hypermobility and joint pains (hips./knees) -Recommend aquatic exercises for strength building -Recommend voltaren gel for joint pain as needed -Recommend knee compression brace -In regards to Raynauds can consider consider shorter acting formulation of methylphenidate than Concerta with the hope that this might improve her Raynaud's -Patient advised to follow up with neurology and ophthalmology No need for scheduled follow up with rheumatology at this time although we are happy to assist as needed if systemic immunosuppression is deemed necessary The patient was seen and discussed with Dr.Mathew Jeison Terry MD Rheumatology Fellow,[id number] Pager: [phone] CC: Becca Lewis * Rose Corado DO - 10/27/2022 1:45 PM EDT ATTENDING ADDENDUM The patient's history was reviewed, and I interviewed and examined the patient with Dr. Bhardwaj. Pablo with her summary, findings, and plan. documented in this encounter Plan of Treatment Upcoming Encounters Date Type Department Care Team (Late st Contact Info) Description 06/16/2024 8:40 AM EST Appointment Mammography/[place] [phone] Radha Fernandez MD [address] [place] [address] 08/10/2024 9:30 AM EDT Office [place] [phone] Miguel Angel Blackman III, MD [facility] [place] [address] Scheduled Referrals Name Type Priority Associated Diagnoses Orde r Schedule Referral to Physical Therapy Outpatient Referral Routine Recurrent optic neuritis Pain in both knees, unspecified chronicity Pain in right hip Hypermobile joints Ordered: 10/27/2022 documented as of this encounter Procedures Procedure Name Priority Date/Time Associated Diagnosis Comments CRP, ACUTE INFLAMMATION Routine 10/27/2022 3:28 PM EDT Recurrent optic neuritis Pain in both knees, unspecified chronicity Pain in right hip Hypermobile joints HEMOGRAM Routine 10/27/2022 3:28 PM EDT Recurrent optic neuritis Pain in both knees, unspecified chronicity Pain in right hip Hypermobile joints DIFFERENTIAL, AUTOMATED Routine 10/27/2022 3:28 PM EDT Recurrent optic neuritis Pain in both knees, unspecified chronicity Pain in right hip Hypermobile joints SEDIMENTATION RATE Routine 10/27/2022 3: 28 PM EDT Recurrent optic neuritis Pain in both knees, unspecified chronicity Pain in right hip Hypermobile joints CBC (WITH DIFF) Routine 10/27/2022 3:28 PM EDT Recurrent optic neuritis Pain in both knees, unspecified chronicity Pain in right hip Hypermobile joints COMPREHENSIVE METABOLIC PANEL Routine 10/27/2022 3:28 PM EDT Recurrent optic neuritis Pain in both knees, unspecified chronicity Pain in right hip Hypermobile joints documented in this encounter Results * XR Pelvis and Hip 2 Views Bilateral (10/27/2022 4:03 PM EDT) Anatomical Region Laterality Modality Pelvis, Hip Bilateral Digital Radiogra phy Impressions 10/27/2022 4:36 PM EDT No acute osseous abnormality. Thank you for letting us participate in the care of this patient. ??If you are a health care provider and have any questions regarding this report, please contact the number below. ??For patients who have questions please contact the health manager of care that requested your imaging first. ? Electronically signed by: Janette Kirkland MD, [facility] ([phone]), at 10/27/2022 4:36 PM Narrative 10/27/2022 4:36 PM EDT EXAMINATION: XR PELVIS AND HIP 2 VIEWS BILATERAL CLINICAL HISTORY: Right hip pain- history of hypermobility TECHNIQUE: 3 views of the pelvis and hips COMPARISON: None FINDINGS: Sacroiliac joint and pubic symphysis joint are intact. Bilateral hip joints are well located. No fracture is seen. Right and left joint spaces are maintained. No significant osteophytes. Procedure Note Janette Kirkland MD - 10/27/2022 EXAMINATION: XR PELVIS AND HIP 2 VIEWS BILATERAL CLINICAL HISTORY: Right hip pain- history of hypermobility TECHNIQUE: 3 views of the pelvis and hips COMPARISON: None FINDINGS: Sacroiliac joint and pubic symphysis joint are intact. Bilateral hip joints are well located. No fracture is seen. Right and leftjoint spaces are maintained. No significant osteophytes. IMPRESSION No acute osseous abnormality. Thank you for letting us participate in the care of this patient. If youare a health care provider and have any questions regarding this report,please contact the number below. For patients who have questions please contactthe health manager of care that requested your imaging first. Rose Corado DO IMG DX ORDERABLES * Differential, Automated (10/27/2022 3:28 PM EDT) [facility] Neutrophil % 64.1 % [facility] Neutrophil Absolute 3.71 1.70 - 6.10 x10(3)/[facility] Lymph % 27.6 % [facility] Lymphocytes Abs 1.6 0.9 - 3.2 x10(3)/[facility] Monocyte % 6.6 % [facility] Monocyte Abs 0.4 0.3 - 0.9 x10(3)/[facility] Eos % 0.5 % [facility] Eosinophils Abs 0.0 0.0 - 0.4 x10(3)/[facility] Basophil % 1.0 % [facility] Baso Absolute 0.1 0.0 - 0.1 x10(3)/[facility] Immature Gran % 0.20 % [facility] Comment: Immature granulocytes(IG's)percentage and absolute count will include metamyelocytes, myelocytes, and promyelocytes. Blood smears from CBCs yielding IG's will be scanned manually for concordance. If this scan disagrees with the automated IG or if promyelocytes are noted, a manual differential will be performed. Immature Gran Absolute 0.01 0.00 - 0.04 x10(3)/[facility] Blood 10/27/2022 3:28 PM EDT 10/27/2022 3:44 PM EDT Narrative Resulting Agency Comment Spec In Lab Jeison Terry MD HEMATOLOGY ORDERABL ES Performing Organization Address City/State/[facility] Co de Phone Number [facility] [place] [address] * Hemogram (10/27/2022 3:28 PM EDT) White Blood Cell 5.8 4.0 - 9.5 x10(3)/[facility] Red Blood Cell 5.14 4.00 - 5.21 x10(6)/[facility] Hemoglobin 15.5 11.7 - 15.5 g/dL [facility] Hematocrit 45.1 35.7 - 45.8 % [facility] Mean Cell Volume 87.7 82.6 - 94.4 fL [facility] Mean Cell Hemoglobin 30.2 27.1 - 32.0 pg [facility] Mean Cell Hemoglobin Concentration 34.4 31.7 - 35.0 g/dL [facility] Platelet 237 145 - 357 x10(3)/[facility] RDW Standard Deviation 41.7 37.0 - 46.0 fL [facility] RDW coefficient of variation 12.9 11.5 - 14.1 % [facility] Mean Platelet Volume 10.0 7.6 - 12.9 fL [facility] NRBC% auto 0.0 % [facility] NRBC Absolute 0.000 0.000 - 0.000 x10(3)/[facility] Blood 10/27/2022 3:28 PM EDT 10/27/2022 3:44 PM EDT Narrative Resulting Agency Comment Spec In Lab Jeison Terry MD HEMATOLOGY ORDERABL ES [facility] [place] [address] * (ABNORMAL) Comprehensive metabolic panel (non-fasting) (10/27/2022 3:28 PM EDT) Glucose 95 65 - 199 mg/dL [facility] Comment:Diabetes: >=200 mg/d L plus symptoms Blood Urea Nitrogen 10 8 - 18 mg/dL [facility] Creatinine 0.61(L) 0.70 - 1.20 mg/dL [facility] Sodium 141 135 - 145 mmol/L [facility] Potassium 4.1 3.5 - 5.0 mmol/L [facility] Comment: Please note: ??Patients with WBC >100,000 may have falsely elevated Potassium levels. ??For accurate Potassium quantification in these patients send serum separator tube (gold top) for subsequent determinations. ??Contact the Clinical Chemistry Laboratory if there are any questions. Chloride 103 98 - 107 mmol/L [facility] Carbon Dioxide 26 22 - 31 mmol/L [facility] Anion Gap 12 5 - 15 mmol/L [facility] Calcium 10.1 8.5 - 10.5 mg/dL [facility] Protein, Total 7.7 6.1 - 8.0 g/dL [facility] Albumin 5.1 3.2 - 5.2 g/dL [facility] Aspartate Aminotransferase 22 0 - 30 unit/L [facility] Alanine Aminotransferase 16 0 - 30 unit/L [facility] Alkaline Phosphatase 71 35 - 105 unit/L [facility] Bilirubin, Total 1.0 0.2 - 1.3 mg/dL [facility] Est Glomerular Filtration Rate 112 >=60 mL/min/1. 73 m?? [facility] Comment: This patient's estimated GFR was calculated using the 2020 CKD-EPI equation. The estimated GFR can vary from the measured GFR by up to 30% in the absence of rapidly changing kidney function. Assessment of the estimated GFR is not appropriate when creatinine concentrations are rapidly changing. For clinical situations in which a more precise estimate of GFR is necessary, consider alternative methods of GFR estimation such as a 24-hour urine creatinine clearance. Assignment of CKD stage 1-5 for patients with an eGFR near the transition point between stages may be based on clinical assessment of muscle mass and symptoms in addition to eGFR. Blood 10/27/2022 3:28 PM EDT 10/27/2022 3:44 PM EDT Narrative Resulting Agency Comment Spec In Lab Rose Corado DO CHEMISTRY ORDERABL ES Performing Organization Address [facility] Co de Phone Number [facility] [place] [address] * CRP, acute inflammation (10/27/2022 3:28 PM EDT) C-Reactive Protein <3.0 <=4.9 mg/L [facility] Blood 10/27/2022 3:28 PM EDT 10/27/2022 3:44 PM EDT Narrative Resulting Agency Comment Spec In Lab Roseyuly Corado DO CHEMISTRY ORDERABL ES Performing Organization Address [facility]/ZIP Co de Phone Number [facility] [place] [address] * Sedimentation rate (10/27/2022 3:28 PM EDT) Sedimentation Rate Automated 12 2 - 37 mm/hr [facility] Comment: Effective March 23, 2019 new capillary photometric technology has resulted in a change in reference ranges. It is recommended that each ESR result be reviewed with its own age appropriate reference range. Blood 10/27/2022 3:28 PM EDT 10/27/2022 3:44 PM EDT Narrative Resulting Agency Comment Spec In Lab Rose Corado DO HEMATOLOGY ORDERAB LES Performing Organization Address City/State/[facility] Co de Phone Number [facility] [place] [address] documented in this encounter Visit Diagnoses Diagnosis Pain in both knees, unspecified chronicity- Primary Recurrent optic neuritis Optic neuritis, unspecified Pain in right hip Pain in joint, pelvic region and thigh Hypermobile joints Other joint derangement, not elsewhere classified, unspecified site Recurrent optic neuritis Optic neuritis, unspecified Pain in both knees, unspecified chronicity Pain in right hip Pain in joint, pelvic region and thigh Hypermobile joints Other joint derangement, not elsewhere classified, unspecified site documented in this encounter Care Teams Accounting Systems Manager Relationship Specialty Start Date End Date Becca Lewis MD PCP - General Family Medicine 09/09/22 01/18/23 documented as of this encounter
--- OUTSIDE RECORDS SUMMARY | 2024-04-18 16:36 | XMS_ITS | Encounter Summary ---
Author Organization [facility] [place] [address] Care Team Providers Care Quality Assurance Assessor Name Role Phone Becca Lewis MD Primary Care Provider [phone] Encounter Details Date Type Department Care Team (Late st Contact Info) Description 10/27/2022 3:34 PM EDT - 10/27/2022 11:59 PM EDT Hospital Encounter XRay at [address] [place] [address] Rose Corado, [facility] [place] [address] Recurrent optic neuritis; Pain in both knees, unspecified chronicity; Pain in right hip; Hypermobile joints Discharge Disposition: Home Social History Tobacco Use [...] rimegepant (Nurtec ODT) 75 mg disintegrating tablet as needed. 08/03/2023 diclofenac (Voltaren) 1 % Gel Apply topically 3 times daily. 50 g 10/27/2022 08/03/2023 documented as of this encounter Plan of Treatment Upcoming Encounters Date Type Department Care Team (Late st Contact Info) Description 06/16/2024 8:40 AM EST Appointment Mammography/[place] [phone] Radha Fernandez MD [address] [place] [id number] 08/10/2024 9:30 AM EDT [place] [phone] Miguel Angel Blackman III, MD [facility] [place] [address] documented as of this encounter Procedures Procedure Name Priority Date/Time Associated Diagnosis Comments XR PELVIS AND HIP 2 VIEWS BILATERAL Routine 10/27/2022 4:03 PM EDT Recurrent optic neuritis Pain in both knees, unspecified chronicity Pain in right hip Hypermobile joints XR KNEE AP AND LAT BILAT Routine 10/27/2022 4:03 PM EDT Recurrent optic neuritis Pain in both knees, unspecified chronicity Pain in right hip Hypermobile joints documented in this encounter Results * XR Knee 1-2 Views Bilat (Generic) (10/27/2022 4:03 PM EDT) Anatomical Region Laterality Modality Knee Bilateral Digital Radiogra phy Impressions 10/27/2022 4:34 PM EDT No acute osseous abnormality bilateral knees. Thank you for letting us participate in the care of this patient. ??If you are a health care provider and have any questions regarding this report, please contact the number below. ??For patients who have questions please contact the health coronary care unit nurse that requested your imaging first. ? Electronically signed by: Janette Kirkland MD, [facility] ([phone]), at 10/27/2022 4:34 PM Narrative 10/27/2022 4:34 PM EDT EXAMINATION: XR KNEE 1-2 VIEWS BILAT (GENERIC) CLINICAL HISTORY: Bilateral knee swelling TECHNIQUE: 2 views BILATERAL knee COMPARISON: None FINDINGS: Right knee: No fracture or joint effusion. Joint space is maintained. No abnormal soft tissue calcifications. TECHNIQUE: No joint effusion or fracture. Joint spaces are maintained. No abnormal soft tissue calcifications. Tiny medial tibial spine osteophyte noted. Procedure Note Janette Kirkland MD - 10/27/2022 EXAMINATION: XR KNEE 1-2 VIEWS BILAT (GENERIC) CLINICAL HISTORY: Bilateral knee swelling TECHNIQUE: 2 views BILATERAL knee COMPARISON: None FINDINGS: Right knee: No fracture or joint effusion. Joint space is maintained. No abnormalsoft tissue calcifications. TECHNIQUE: No joint effusion or fracture. Joint spaces are maintained. No abnormalsoft tissue calcifications. Tiny medial tibial spine osteophyte noted. IMPRESSION No acute osseous abnormality bilateral knees. Thank you for letting us participate in the care of this patient. If youare a health care provider and have any questions regarding this report,please contact the number below. For patients who have questions please contactthe health coronary care unit nurse that requested your imaging first. Electronically signed by: Janette Kirkland MD, [facility]([phone]), at 10/27/2022 4:34 PM Rose Corado DO IMG DX ORDERABLES * XR Pelvis and Hip 2 Views [...] who have questions please contact the health coronary care unit nurse that requested your imaging first. ? Electronically signed by: Janette Kirkland MD, [facility] ([phone]), at 10/27/2022 4:36 PM Narrative 10/27/2022 4:36 [...] patients who have questions please contactthe health coronary care unit nurse that requested your imaging first. Rose Corado DO IM DX ORDERABLES documented in this encounter Visit Diagnoses Diagnosis Recurrent optic neuritis Optic neuritis, unspecified Pain in both knees, unspecified chronicity Pain in right hip Pain in joint, pelvic region and thigh Hypermobile joints Other joint derangement, not elsewhere classified, unspecified site documented in this encounter Care Teams Quality Assurance Assessor Relationship Specialty Start Date End Date Becca Lewis MD PCP - General Family Medicine 09/09/22 01/18/23 documented as of this encounter
--- OUTSIDE RECORDS SUMMARY | 2024-04-18 16:36 | XMS_ITS | Encounter Summary ---
Author Organization [facility] [place] [address] Care Team Providers Care Diamond Sawer Name Role Phone Curtis Jiang MD Primary Care Provider [phone] Reason for Visit * Reason Onset Date Comments Medication Refill 03/19/2023 Encounter Details Date Type Department Care Team (Late Contact Info) Description 03/19/2023 [place] [address] Miguel Angel Blackman III, MD [facility] [place] [address] Chronic relapsing inflammatory optic neuropathy Social History [...] 06/16/2024 8:40 AM EST Appointment Mammography/[place] [address] Radha Fernandez MD [address] [phone] 08/10/2024 9:30 AM EDT Office [place] [address] Miguel Angel Blackman III, MD [facility] [place] [address] documented as of this encounter Visit Diagnoses Diagnosis Chronic relapsing inflammatory optic neuropathy documented in this encounter Care Teams Diamond Sawer Relationship Specialty Start Date End Date Curtis Jiang MD [address] [place] [address] PCP - General Family Medicine 01/19/23 documented as of this encounter
--- OUTSIDE RECORDS SUMMARY | 2024-04-18 16:36 | XMS_ITS | Encounter Summary ---
Author Organization [facility] Address [facility] [place] [address] Care Team Providers Care Power Reactor Operator Name Role Phone Curtis Jiang MD Primary Care Provider [phone] Reason for Visit * Consultation (Routine) - Closed Specialty Diagnoses / Procedures Referred By Bernardo vizcaino Referred To Contact Ophthalmology Diagnoses Chronic relapsing inflammatory optic neuropathy Miguel Angel Blackman III, MD [facility] [place] [address] Chela Chang MD [facility] [place] [address] Referral ID Status Reason Start Date Expiration Date V isits Requested Visits Authorized [id number] Closed Consult, Test & Treat 10/30/2022 10/30/2023 1 1 Encounter Details Date Type Department Care Team (Late st Contact Info) Description 02/12/2023 8:00 AM EDT Office Visit Ophthalmology at [place] [phone] Chela Chang MD [facility] [address] [address] Chronic relapsing inflammatory optic neuropathy (Primary Dx) Social History Tobacco Use Types Packs/Day Years [...] this encounter Progress Notes * Miguel Angel Austin MD - 02/12/2023 8:00 AM EDT Visual Acuity Visual Acuity (Snellen - Linear) Right Left Dist cc 20/20 -2 20/20 Correction: Contacts Tonometry Tonometry (Applanation, 9:31 AM) Right Left Pressure 20 21 Encounter Diagnosis Name Primary? Chronic relapsing inflammatory optic neuropathy Pradeep Brady is a 47 y.o. female referred by Dr. Miguel Angel Blackman with a history of presumptive CRION. She was diagnosed with left optic neuritis in 2012, managed with high-dose IV prednisone. This resulted with residual left inferotemporal field deficit. She received a full work-up in 2012, includingan evaluation for NMO, SLE, MOG. An MRI at the time did not demonstrate MS, and subsequent imaging did not demonstrate any lesions. SLE remained on the working differential, however work- up for lupuswas ultimately negative (she has a sister with Lupus). She was evaluated in 2014 at [facility] for AZOOR,however ERG was normal. She was also followed as a glaucoma suspect in the setting of asymmetric cupping. In 2019, she noticed right eye pain, with associated cervical lymphadenopathy and supraclavicular lymph nodes tender to touch. She was treated with a 2-day course of high-dose steroids. Following that episode she has experienced residual inferior temporal field defect in her right eye. She also hasrecurrent bouts of bilateral joint pain and swelling that last for weeks at a time which respond tosteroids. She has received systemic autoimmune work-up at [facility] including a lumbar puncture, blood work (negative SHITAL, Sjogren's antibody, syphilis, ANCA, ESR, CRP, B12, B2, cardiolipin, lupus anticoagulant). She is currently working with Dr. Miguel Angel Blackman, neurologist at [facility]. She underwent Darius orbits (08/03/2022) which demonstrated mild tortuosity and prominence of the optic nerve sheath and subarachnoid space around the optic nerves, however, no abnormal signal or enhancement of the optic nerves, chiasm, or tracks. MRI of the brain at the time also was within normal limits. He started her on mycophenolate, however, patient noted a significant increase in fatigue and has since discontinued. He is considering starting azathioprine. Of note, she also has a history of migraines, for which she takes Nurtec PRN. On exam today, patient demonstrates 20/20 vision at distance, no relative afferent pupillary defect, full color vision, good stereopsis. She has red- desaturation OS. On confrontational delgadillo there is a symmetric inferotemporal field loss (corroborated by her HVF 24-2). Chronic relapsing inflammatory optic neuritis: -While rare, Pradeep meets criteria for CRION: -Hx of ON with at least 1 relapse, clinical evidence of loss of visual function, NMO-IgG seronegative, MRI of inflammed optic nerves, response to immunosuppressive tx and relapse when treatment discontinues -Carmelo Callejas [employer]. Chronic relapsing inflammatory optic neuropathy: a systematic review of 122 cases reported. J Neurol. 2014;261(1):17-26. doi:10.1007/[id number] -Agree with Dr. Blackman that the patient would likely benefit from IMT. Given that she has responded poorly to mycophenolate, starting azothioprine is a good choice. -Emi RN, Don W, Maykel RODRIGUEZ. Devic???s neuromyelitis optica: A prospective study of seven patients treated with prednisone and azathioprine. Neurology. 1998;51(4):6978-1739. doi:10.1212/WNL.51.4.1219 -Discussed with the patient that CRION is an auto-immune disorder, that repeat ON causes permanent damage to the optic nerve. Discussed the risks and benefits to intermittent high dose steroids during bouts of ON vs low-dose maintenance therapy. Family history of glaucoma: -IOP 20/21, pachymetry RTC: - Follow up 6 months with [facility] for HVF 24-2, DFE, OCT RNFL, fundus photos or as needed - Findings and concerns discussed with Pradeep and she expressed understanding. Miguel Angel Austin MD PGY-3 Ophthalmology Pager #[phone] I saw the patient with the following level of supervision: Direct from the attending, Dr. Chang * Chela Chang MD - 02/12/2023 8:00 AM EDT Ophthalmology Attending Attestation I saw and evaluated Pradeep Brady with Dr. Austin, ophthalmology resident. I have reviewed the medical records and the patient's history during the visit and I agree with the details as written. My physical examination confirms the findings. The assessment and plan were formulated in discussion with me at the time of the visit and I agree with them as documented. Chela Chang MD Mortgage Banker Department of Surgery, Ophthalmology [facility] documented in this encounter Plan of Treatment Upcoming Encounters Date Type Department Care Team (Late st Contact Info) Description 06/16/2024 8:40 AM EST Appointment Mammography/[place] [address] Radha Fernandez MD [address] [place] [address] 08/10/2024 9:30 AM EDT Office [place] [phone] Miguel Angel Blackman III, MD [facility] [place] [address] documented as of this encounter Procedures Procedure Name Priority Date/Time Associated Diagnosis Comments OCT OPTIC NERVE - OU - BOTH EYES Routine 02/12/2023 10:01 AM EDT Chronic relapsing inflammatory optic neuropathy OCT RETINA - OU - BOTH EYES Routine 02/12/2023 9:59 AM EDT Chronic relapsing inflammatory optic neuropathy FUNDUS PHOTOS - OU- BOTH EYES Routine 02/12/2023 9:59 AM EDT Chronic relapsing inflammatory optic neuropathy AUTOMATED VISUAL FIELD - EXTENDED - OU- BOTH EYES Routine 02/12/2023 9:58 AM EDT Chronic relapsing inflammatory optic neuropathy documented in this encounter Results * Oct Optic Nerve - OU - Both Eyes (02/12/2023 10:01 AM EDT) Anatomical Region Laterality Modality Other Narrative 02/12/2023 2:03 PM EDT Right Eye Quality was good. Progression has no prior data. Left Eye Quality was good. Progression has no prior data. Notes Revere Spectralis OCT RNFL Right Eye Quality was good Left Eye Quality was good Notes Optic nerve report OD: ??Average RNFL: 85, classification = BNL OS: ??Average RNFL: 80, classification = BNL Interpretation Stable nerves as compared to outside imaging. Likely result of ON damage and myopia. Chela Chang MD OPHTHALMOLOGY SE [facility] ORDERABLES * OCT Retina - OU - Both Eyes (02/12/2023 9:59 AM EDT) Anatomical Region Laterality Modality Other Narrative 02/12/2023 2:03 PM EDT Right Eye Quality was good. Progression has no prior data. Findings include normal observations, normal foveal contour. Left Eye Quality was good. Progression has no prior data. Findings include normal observations, normal foveal contour. Notes Normal OCT OU Chela Chang MD OPHTHALMOLOGY [facility] ORDERABLES * Fundus Photos - OU - Both Eyes (02/12/2023 9:59 AM EDT) Anatomical Region Laterality Modality Other Narrative 02/12/2023 2:03 PM EDT Right Eye Progression has improved. Disc findings include normal observations. Left Eye Progression has improved. Disc findings include normal observations. Notes Deep cups OU OD: WNL, deep OS: PPA, mild temporal pallor, myopic Chela Chang MD OPHTHALMOLOGY [facility] ORDERABLES * Automated Visual Field - Extended - OU - Both Eyes (02/12/2023 9:58 AM EDT) Anatomical Region Laterality Modality Other Narrative 02/12/2023 2:03 PM EDT Right Eye Threshold was 24-2. Strategy was BILL. Reliability was good. Progression has been stable. Foveal threshold was normal. Left Eye Threshold was 24-2. Strategy was BILL. Reliability was good. Foveal threshold was normal. Notes Visual Field Results Type of VF: ??HVF 24-2 Indication: ??CRION Reliability: ??Good OU Glaucoma Hemifield Test (GHT) OD: Borderline OS: Outside normal limits Visual Function Index (VFI) OD: 96 % OS: 93 % MD OD: -1.08 dB ? PSD OD: 6.65 dB MD OS: -3.16 dB ??PSD OS: 8.89 dB Interpretation: IT field loss OU, OS>OD Chela Chang MD OPHTHALMOLOGY SE [facility] ORDERABLES documented in this encounter Visit Diagnoses Diagnosis Chronic relapsing inflammatory optic neuropathy- Primary documented in this encounter Care Teams Power Reactor Operator Relationship Specialty Start Date End Date Curtis Jiang MD [address] [place] [address] PCP - General Family Medicine 01/19/23 documented as of this encounter
--- OUTSIDE RECORDS SUMMARY | 2024-04-18 16:36 | XMS_ITS | Encounter Summary ---
Author Organization [facility] Address [facility] [place] [address] Care Team Providers Care Manager Vehicle Name Role Phone Becca Lewis MD Primary Care Provider [phone] Encounter Details Date Type Department Care Team (Latest Contact Info) Description 01/18/2023 Travel Social History Tobacco Use Types Packs/Day [...] 06/16/2024 8:40 AM EST Appointment Mammography/[place] [phone] Radha Fernandez MD [address] [place] [address] 08/10/2024 9:30 AM EDT Office [place] [phone] Miguel Angel Blackman III, MD [facility] [place] [address] documented as of this encounter Visit Diagnoses Not on filedocumented in this encounter Care Teams Manager Vehicle Relationship Specialty Start Date End Date Becca Lewis MD PCP - General Family Medicine 09/09/22 01/18/23 documented as of this encounter
--- OUTSIDE RECORDS SUMMARY | 2024-04-18 16:36 | XMS_ITS | Encounter Summary ---
Author Organization [facility] [place] [address] Care Team Providers Care Wagon Person Name Role Phone Becca Lewis MD Primary Care Provider [phone] Reason for Visit * Reason Onset Date Comments Appointment 09/10/2022 Encounter Details Date Type Department Care Team (Late st Contact Info) Description 09/10/2022 Telephone [place] [address] Miguel Angel Blackman III, MD [facility] [place] [address] Appointment Social History Tobacco Use Types Packs/Day [...] encounter Miscellaneous Notes * Telephone Encounter - Deanna Guzman - 09/10/2022 4:11 PM EDT Patient returning call to schedule CT scan and FUV. Patient is scheduled for 02/16 and is on wait list. Answered CT screening questions and transferred caller to Radiology for scheduling. * Telephone Encounter - Tosin Brunson - 09/10/2022 9:37 AM EDT Scheduling Instructions Provider: Dr Blackman Visit Type (paste MARTIN Instructions or manually enter): Return in about 6 weeks (around 10/21/2022) for In Person If EMG Visit needed list diagnosis for the EMG to be used in Decision Tree: Appt Note: Schedule CT Additional Info Needed: CT questions need to be asked. documented in this encounter Plan of Treatment Upcoming Encounters Date Type Department Care Team (Late st Contact Info) Description 06/16/2024 8:40 AM EST Appointment Mammography/[place] [phone] Radha Fernandez MD [address] [place] [address] 08/10/2024 9:30 AM EDT Office [place] [phone] Miguel Angel Blackman III, MD [facility] [place] [address] documented as of this encounter Visit Diagnoses Not on filedocumented in this encounter Care Teams Wagon Person Relationship Specialty Start Date End Date Becca Lewis MD PCP - General Family Medicine 09/09/22 01/18/23 documented as of this encounter
--- OUTSIDE RECORDS SUMMARY | 2024-04-18 16:36 | XMS_ITS | Encounter Summary ---
Author Organization [facility] [address] Care Team Providers Care Senior Php Developer Name Role Phone Unavailable Primary Care Provider Unavailabl e Encounter Details Date Type Department Care Team (Late st Contact Info) Description 04/24/2022 9:52 AM EST - 04/24/2022 11:59 PM EST Hospital Encounter Mammography/[place] [phone] Rose Corado, [facility] [place] [place] [address] Low back pain, non-specific Discharge Disposition: Home [...] 06/16/2024 8:40 AM EST Appointment Mammography/[place] [address] Radha Fernandez MD [address] [place], [place] [address] 08/10/2024 9:30 AM EDT [place] [address] Miguel Angel Blackman III, MD [facility] [place] [address] documented as of this encounter Procedures Procedure Name Priority Date/Time Associated Diagnosis Comments DXA CENTRAL SPINE, HIP, AND/OR WHOLE BODY (GENERIC) Routine 04/25/2022 10:25 AM EST Low back pain, non-specific documented in this encounter Results * DXA [...] BMD measurements and plots are available in [employer] under the imaging tab. Paper copies will be sent to providers without E- access. If you have received this report without the data sheet and do not have access to E-, please contact [facility] at [phone]. ? Bone Density Report ? Name: ?Pradeep Brady Age: ? 46 Sex: ? Female Ethnicity: ? White Date of : 1975 Referring Provider: KEILA LAROSE Study: Bone densitometry was performed. Model: TweepsMap (S/N [id number]) [employer] version 13.6.0.5 Exam Date: April 24, 2022 Accession number: [id number] Bone Density: Region ? BMD ?T-score ??Z-score [...] who have questions please contact the health personal care worker that requested your imaging first. ? Narrative [...] BMD measurements and plots are available in [employer] the imaging tab. Paper copies will be sent to providers without [employer] access.If you have received this report without the data sheet and do not haveaccess to [employer], please contact [facility] at [phone]. Bone Density Report Name: Pradeep Brady Age: 46 Sex: Female Ethnicity: White Date of : 1975 Referring Provider: KEILA LAROSE Study: Bone densitometry was performed. Model: TweepsMap (S/N [id number]) [employer] version 13.6.0.5 Exam Date: April 24, 2022 Accession number: [id number] Bone Density: Region BMD T-score Z-score AP [...] patients who have questions please contactthe health personal care worker that requested your imaging first. Rose Corado DO IMG DEXA ORDERABLE S documented in this encounter Visit Diagnoses Diagnosis Low back pain, non-specific documented in this encounter
--- OUTSIDE RECORDS SUMMARY | 2024-04-18 16:36 | XMS_ITS | Encounter Summary ---
Author Organization [facility] Address [facility] [place] [address] Care Team Providers Care Paperhanger Apprentice Name Role Phone Curtis Jiang MD Primary Care Provider [phone] Reason for Visit * Reason Onset Date Comments Medication Refill 02/17/2023 Encounter Details Date Type Department Care Team (Late Contact Info) Description 02/17/2023 Refill [place] [phone] Miguel Angel Blackman III, MD [facility] [place] [address] Social History Tobacco Use Types Packs/Day Years [...] 06/16/2024 8:40 AM EST Appointment Mammography/[place] [address] Radha Fernandez MD [address] [place] [phone] 08/10/2024 9:30 AM EDT Office [place] [address] Miguel Angel Blackman III, MD [facility] [address] documented as of this encounter Visit Diagnoses Not on filedocumented in this encounter Care Teams Paperhanger Apprentice Relationship Specialty Start Date End Date Curtis Jiang MD [address] [place] [address] PCP - General Family Medicine 01/19/23 documented as of this encounter
--- OUTSIDE RECORDS SUMMARY | 2024-04-18 16:37 | XMS_ITS | Encounter Summary ---
[facility] [place] [address] Care Team Providers Care Boat Buffer Plastic Name Role Phone Unavailable Primary Care Provider Unavailabl e Reason for Referral * Consultation (Routine) - Closed Specialty Diagnoses / Procedures Referred By Bernardo vizcaino Referred To Contact Rheumatology Diagnoses Examination MULTIPLE EPISODES OF OPTIN NEURITIS W/ GOOD RESPONSE TO STEROIDS, INCONCLUSIVE AUTOIMMUNE WORKUPS IN PAST Ronda Dueñas, OD [address] [place] [address] [facility] [address] [place] [phone] Referral ID Status Reason Start Date Expiration Date V isits Requested Visits Authorized [id number] Closed Consult, Test & Treat PCP Updated and/or Approved 12/04/2021 12/04/2022 6 6 Encounter Details Date Type Department Care Team (Late Contact Info) Description 12/04/2021 Transcribe Orders eDH Incoming Referrals [phone] Ronda Dueñas, OD [address] [place] [address] Examination Social History Tobacco Use Types Packs/Day Years Used Date Smoking Tobacco: Never Assessed Sex and Gender Information Value Date Recorded Sex Assigned at Not on file Gender Identity Not on file Sexual Orientation Not on file documented as of this encounter Plan of Treatment Upcoming Encounters Date Type Department Care Team (Late Contact Info) Description 06/16/2024 8:40 AM EST Appointment Mammography[place] [address] Radha Fernandez MD [address] [place] [address] 08/10/2024 9:30 AM EDT [place] [phone] Miguel Angel Blackman III, MD [facility] [place] [address] Scheduled Referrals Name Type Priority Associated Diagnoses Order Schedule Referral to Ophthalmology Outpatient Referral Routine Examination Ordered: 12/04/2021 documented as of this encounter Visit Diagnoses Diagnosis Examination Unspecified examination documented in this encounter
--- OUTSIDE RECORDS SUMMARY | 2024-04-18 16:37 | XMS_ITS | Encounter Summary ---
Author Organization [facility] [place] [address] Care Team Providers Care Geography Head Name Role Phone Unavailable Primary Care Provider Unavailabl e Encounter Details Date Type Department Care Team (Late st Contact Info) Description 01/09/2022 [place] [phone] Yamila Maza Social History Tobacco Use Types Packs/Day Years Used Date Smoking Tobacco: Never Assessed Sex and Gender Information Value Date Recorded Sex Assigned at Not on file Gender Identity Not on file Sexual Orientation Not on file documented as of this encounter Plan of Treatment Upcoming Encounters Date Type Department Care Team (Late st Contact Info) Description 06/16/2024 8:40 AM EST Appointment Mammography/[place] [address] Radha Fernandez MD [address] [place] [address] 08/10/2024 9:30 AM EDT [place] [address] Miguel Angel Blackman III, MD [facility] [place] [address] documented as of this encounter Visit Diagnoses Not on filedocumented in this encounter
== END 2024-04-18 16:24 | disposition home or self-care (01) ==
LOC: NCHCN 16:23
PROVIDERS: Visit Provider Family Medicine
DX: R53.83 Other fatigue (principal)
CPT/HCPCS: 85025

== ENCOUNTER 2024-06-20 04:23 | Outpatient (CLI) | payer OTHER, SELFPAY ==
[2024-06-20 07:52] LABS: Abs Immature Grans 0.01 10^3/uL (0.0-0.06); Absolute Basophil Count 0.05 10^3/uL (0.0-0.2); Absolute Eosinophil Count 0.11 10^3/uL (0.0-0.7); Absolute Lymphocyte Count 1.24 10^3/uL (1.2-3.4); Absolute Monocyte Count 0.55 10^3/uL (0.1-0.8); Absolute Neutrophil Count 3.27 10^3/uL (1.2-6.7); Eosinophils % 2.1 %; HGB 14.3 g/dL (11.2-15.7); Immature Grans % 0.2 %; Lymphocytes % 23.7 %; MCH 30.5 pg (27.0-33.0); MCV 90 fL (80-95); MPV 9.7 fL (8.0-11.0); Monocytes % 10.5 %; Neutrophils % 62.5 %; Platelet Count 245 10^3/uL (130-400); RBC 4.69 10^6/uL (3.93-5.22); RDW 13.2 % (11.7-14.6); RDW-SD 42.9 fL; WBC 5.23 10^3/uL (4.4-10.8)
[2024-06-20 09:07] LABS: ALT 27 U/L (14-59); AST 18 U/L (15-37); Albumin 4.2 g/dL (3.4-5.0); Alkaline Phosphatase 66 U/L (46-116); Bilirubin, Direct 0.2 mg/dL (0.0-0.2); Bilirubin, Total 0.6 mg/dL (0.2-1.0); Total Protein 7.4 g/dL (6.4-8.2)
== END 2024-06-20 04:24 | disposition home or self-care (01) ==
PROVIDERS: Visit Provider Psychiatry & Neurology Neurology
DX: H46.8 Other optic neuritis (principal)
CPT/HCPCS: 36415; 80076; 85025

== ENCOUNTER 2024-07-26 11:59 | Outpatient (REF) | payer OTHER, SELFPAY ==
[2024-07-30 16:33] LABS: Methylphenidate 100 ng/mL (Cutoff: 10)
== END 2024-07-26 12:00 | disposition home or self-care (01) ==
LOC: NCHCN 11:59
PROVIDERS: PCP Family Medicine; Visit Provider Family Medicine
DX: F90.9 Attention-deficit hyperactivity disorder, unspecified type (principal); Z79.891 Long term (current) use of opiate analgesic
CPT/HCPCS: 80360

== ENCOUNTER 2024-09-29 01:06 | Outpatient (CLI) | payer OTHER, SELFPAY ==
[2024-09-29 15:01] LABS: Abs Immature Grans 0.01 10^3/uL (0.0-0.06); Absolute Basophil Count 0.04 10^3/uL (0.0-0.2); Absolute Eosinophil Count 0.04 10^3/uL (0.0-0.7); Absolute Lymphocyte Count 1.19 10^3/uL (1.2-3.4); Absolute Monocyte Count 0.48 10^3/uL (0.1-0.8); Basophils % 0.7 %; Eosinophils % 0.7 %; HCT 41.1 % (36.0-46.0); HGB 13.8 g/dL (11.2-15.7); Immature Grans % 0.2 %; Lymphocytes % 21.4 %; MCH 29.9 pg (27.0-33.0); MCHC 33.6 % (32.0-36.0); MCV 89 fL (80-95); MPV 9.9 fL (8.0-11.0); Monocytes % 8.6 %; Neutrophils % 68.4 %; Platelet Count 247 10^3/uL (130-400); RBC 4.62 10^6/uL (3.93-5.22); RDW 12.8 % (11.7-14.6); RDW-SD 41.2 fL; WBC 5.56 10^3/uL (4.4-10.8)
[2024-09-29 16:30] LABS: ALT 45 U/L (14-59); AST 28 U/L (15-37); Albumin 4.3 g/dL (3.4-5.0); Alkaline Phosphatase 75 U/L (46-116); Bilirubin, Direct 0.2 mg/dL (0.0-0.2); Bilirubin, Total 0.9 mg/dL (0.2-1.0); Total Protein 7.6 g/dL (6.4-8.2)
== END 2024-09-29 01:07 | disposition home or self-care (01) ==
PROVIDERS: PCP Family Medicine; Visit Provider Psychiatry & Neurology Neurology
DX: Z51.81 Encounter for therapeutic drug level monitoring (principal); Z79.624 Long term (current) use of inhibitors of nucleotide synthesis; H46.8 Other optic neuritis
CPT/HCPCS: 36415; 80076; 85025

== ENCOUNTER 2024-10-20 13:06 | Outpatient (CLI) | payer OTHER, SELFPAY ==
--- NOTE | 2024-10-20 | DI.RAD_ITS ---
Exam(s) XR CHEST 2V PA LATERAL EXAM: XR CHEST 2V PA LATERAL CLINICAL HISTORY: LYMPHADENOPATHY,R59.1. TECHNIQUE: 2D digital imaging was performed. COMPARISON: No exams were available for comparison FINDINGS: 2 views: Heart size is normal. The mediastinum is not widened. Lungs are clear. No infiltrates nor pleural effusions. IMPRESSION: No acute pulmonary findings. DATA REPOSITORY: RADIATION DOSE DELIVERED:
== END 2024-10-20 13:26 ==
LOC: DI 13:06
PROVIDERS: PCP Family Medicine; Visit Provider Family Medicine
DX: R59.1 Generalized enlarged lymph nodes (principal)
CPT/HCPCS: 71046

== ENCOUNTER 2024-10-20 16:12 | Outpatient (REF) | payer OTHER, SELFPAY ==
[2024-10-20 16:16] LABS: ALT 38 U/L (14-59); AST 24 U/L (15-37); Albumin 4.5 g/dL (3.4-5.0); Alkaline Phosphatase 81 U/L (46-116); Anion Gap 7.9 mmol/L (3-11); BUN 14 mg/dL (7-18); Bilirubin, Total 0.5 mg/dL (0.2-1.0); C-Reactive Protein < 0.50 mg/dL (<or=0.5); CO2 29.1 mmol/L (21.0-32.0); Calcium 10.0 mg/dL (8.5-10.1); Chloride 103 mmol/L (98-107); Estimated GFR 116.34 (mL/min/1.73m2); Glucose 107 mg/dL (74-106); Potassium 4.2 mmol/L (3.5-5.1); Sodium 140 mmol/L (136-145); Total Protein 7.4 g/dL (6.4-8.2)
[2024-10-20 16:20] LABS: Abs Immature Grans 0.01 10^3/uL (0.0-0.06); HCT 41.1 % (36.0-46.0); HGB 13.7 g/dL (11.2-15.7); Immature Grans % 0.2 %; MCH 29.3 pg (27.0-33.0); MCHC 33.3 % (32.0-36.0); MCV 88 fL (80-95); MPV 10.9 fL (8.0-11.0); Platelet Count 249 10^3/uL (130-400); RBC 4.67 10^6/uL (3.93-5.22); RDW 12.9 % (11.7-14.6); RDW-SD 41.1 fL; WBC 5.53 10^3/uL (4.4-10.8)
== END 2024-10-20 16:13 | disposition home or self-care (01) ==
LOC: NCHCN 16:12
PROVIDERS: PCP Family Medicine; Visit Provider Family Medicine
DX: R59.1 Generalized enlarged lymph nodes (principal)
CPT/HCPCS: 80053; 85025; 86140

== ENCOUNTER 2025-01-30 03:47 | Outpatient (CLI) | payer OTHER, SELFPAY ==
[2025-01-30 14:48] LABS: Abs Immature Grans 0.02 10^3/uL (0.0-0.06); HCT 40.3 % (36.0-46.0); HGB 14.0 g/dL (11.2-15.7); Immature Grans % 0.3 %; MCH 29.3 pg (27.0-33.0); MCHC 34.7 % (32.0-36.0); MCV 84 fL (80-95); MPV 9.8 fL (8.0-11.0); Platelet Count 234 10^3/uL (130-400); RBC 4.78 10^6/uL (3.93-5.22); RDW 12.5 % (11.7-14.6); RDW-SD 37.8 fL; WBC 6.46 10^3/uL (4.4-10.8)
[2025-01-30 15:19] LABS: ALT 28 U/L (14-59); AST 20 U/L (15-37); Albumin 4.4 g/dL (3.4-5.0); Alkaline Phosphatase 92 U/L (46-116); Bilirubin, Direct 0.2 mg/dL (0.0-0.2); Bilirubin, Total 0.8 mg/dL (0.2-1.0); Total Protein 7.8 g/dL (6.4-8.2)
== END 2025-01-30 03:48 | disposition home or self-care (01) ==
PROVIDERS: PCP Family Medicine; Visit Provider Psychiatry & Neurology Neurology
DX: Z51.81 Encounter for therapeutic drug level monitoring (principal); Z79.624 Long term (current) use of inhibitors of nucleotide synthesis; H46.8 Other optic neuritis
CPT/HCPCS: 36415; 80076; 85025